=== PATIENT | female | born 1940 | race Caucasian/White ===

== ENCOUNTER 2023-09-06 16:15 | Outpatient (RCR) | payer OTHER, SELFPAY | END 2023-10-05 12:54 | disposition home or self-care (01) | LOC: PURB 16:15 | PROVIDERS: ATTENDING PHYSICIAN Internal Medicine Critical Care Medicine; FAMILY PHYSICIAN Internal Medicine | DX: J44.9 Chronic obstructive pulmonary disease, unspecified (principal) | CPT/HCPCS: 94625 ==

== ENCOUNTER 2023-10-06 16:15 | Outpatient (RCR) | payer OTHER, SELFPAY | END 2023-10-12 10:21 | disposition home or self-care (01) | LOC: PURB 16:15 | PROVIDERS: ATTENDING PHYSICIAN Internal Medicine Critical Care Medicine; FAMILY PHYSICIAN Internal Medicine | DX: J44.9 Chronic obstructive pulmonary disease, unspecified (principal) | CPT/HCPCS: 94625 ==

== ENCOUNTER 2023-10-13 12:10 | Outpatient (RCR) | payer SELFPAY | END 2023-10-13 23:59 | disposition home or self-care (01) | LOC: PURBM 12:10 | PROVIDERS: ATTENDING PHYSICIAN Internal Medicine Critical Care Medicine | DX: J44.9 Chronic obstructive pulmonary disease, unspecified (principal) ==

== ENCOUNTER 2024-01-23 15:00 | Emergency (ER) | payer OTHER, SELFPAY ==
[2024-01-23 15:08] VITALS: BP 124/89
[2024-01-23 15:29] LABS: % Basophils 0.3 % (0-2); % Eosinophils 1.7 % (0-6); % Immature Granulocytes 0.3 % (0-0.5); % Lymphocytes 10.7 % (20.5-51.1); % Monocytes 9.3 % (1.7-9.3); % Neutrophils 77.7 % (42.2-75.2); Absolute Eosinophils 0.2 10^3/uL (0-0.7); Absolute Lymphocytes 1.2 10^3/uL (1.2-3.4); Absolute Monocytes 1.1 10^3/uL (0.1-0.6); Absolute Neutrophils 8.9 10^3/uL (1.4-6.5); Hematocrit 40.3 % (37.0-47.0); Hemoglobin 13.2 g/dL (12.0-16.0); Mean Corp Hgb Conc. 32.8 g/dL (33.0-37.0); Mean Corpuscular Hgb 31.3 pg (27.0-31.0); Mean Corpuscular Volume 95.5 fL (81.0-99.0); Mean Platelet Volume 10.2 fL (7.4-10.4); Nucleated Red Blood Cells % 0 %; Platelet Count 195 10^3/uL (130-400); Red Blood Cell Count 4.22 10^6/uL (4.20-5.40); Red Cell Dist. Width 14.3 % (11.5-14.5); White Blood Cell Count 11.4 10^3/uL (4.8-10.8)
[2024-01-23 15:44] LABS: ALT (SGPT) 28 U/L (0-35); AST (SGOT) 38 U/L (14-36); Albumin 4.1 g/dl (3.5-5.0); Alkaline Phosphatase 71 U/L (38-126); Blood Urea Nitrogen 25 mg/dl (7-17); Calcium 9.3 mg/dl (8.4-10.2); Carbon Dioxide 29 mmol/L (22-30); Chloride 104 mmol/L (98-107); Glucose 85 mg/dl (70-99); Potassium 4.1 mmol/L (3.5-5.1); Sodium 140 mmol/L (135-145); Total Bilirubin 0.8 mg/dl (0.2-1.3); Total Protein 7.5 g/dl (6.3-8.2); eGFR > 60.00
[2024-01-23 17:41] VITALS: BP 130/76; BMI 23.4
--- NOTE | 2024-01-23 18:07 | ED.GENMED ---
History of Present Illness
General
Chief Complaint: Dizziness
Time Seen by Provider: 01/23/24 18:07
Travel History
Have you had any contact with someone who has COVID-19?: No
Do you have any symptoms of coronavirus? Fever > 100 degrees, chills, cough, shortness of breath, sore throat, loss of taste or smell, muscle aches, or headache?: No
History of Present Illness
History of Present Illness:
HPI: Patient presents with lightheadedness/dizziness. This was self-limited but last did longer than it typically has lasted in the past. She had another episode yesterday. She thinks that her blood pressure machine was broken yesterday as she
was giving of blood pressure reading of 56 systolic. She is no longer on blood pressure medication. She denies any other symptoms including any chest pain or shortness of breath.
EXAM:
GENERAL: Well appearing in no distress
HEENT: Very hoarse voice likely related to known vocal cord mass
CARDIOVASCULAR: No murmurs, normal heart rate, regular rhythm, No chest wall tenderness
PULMONARY: No respiratory distress, breath sounds are clear and equal
ABDOMEN: Soft with no peritoneal signs, no tenderness
NEUROLOGIC: Excellent strength all extremities, no coordination deficits, normal finger-nose testing
PSYCHIATRIC: Appropriate mental status, normal insight and judgement
EXTREMITIES: Nontender, no edema, moves all extremities equally
SKIN: Appears slightly
TIME OF INITIAL ENCOUNTER: 6:20 PM
NUMBER AND COMPLEXITY OF PROBLEMS ADDRESSED AT THE ENCOUNTER
� Chronic conditions affecting care: Asthma, COPD, former smoker on oxygen, A-fib, CAD, high blood pressure, bladder cancer, vocal cord cancer
� Acute Exacerbation and/or Progression of Chronic Illness: This is an acute but recurring problem
� Differential Diagnosis includes: Dehydration unlikely as patient states she feels well-hydrated, anemia has been ruled out, dysrhythmia�she is being paced on monitor
AMOUNT AND/OR COMPLEXITY OF DATA TO BE REVIEWED AND ANALYZED
� I performed an independent evaluation of and my interpretation is:
EKG: AV paced rate of 71
CT:
X-rays:
Laboratory Studies: Minimal leukocytosis noted, normal hemoglobin, BUN 25 creatinine 0.7, normal electrolytes
Other:
� Review of other/old records: The patient was admitted with COPD exacerbation/bronchitis in 2022
� Clinical information was obtained by an independent historian: I spoke to the at bedside
� Prescriptions/Medications Considered but not given: Offered and considered IV fluids however the patient declines stating that she feels well-hydrated
� Further testing considered but not performed:
RISK OF COMPLICATIONS AND/OR MORBIDITY OR MORTALITY OF PATIENT MANAGEMENT
� Social determinants of health affecting care: Lives at home
� Discussion with other providers:
� Escalation of care including admission/observation vs risk of discharge considered: On reassessment, the is very pleased with how the patient looks currently. The patient has not had any further episodes throughout her
stay in the ED. Basic workup is unremarkable. She is eager to go home.
Past History
Past History
ED Past Medical History: Other (bladder cancer), Other (AFIB) and Other (PAF status post pacemaker coronary disease status post stent peripheral artery disease status post femoral stent, COPD, depression)
ED Past Surgical History: Gynecological (Hysterectomy)
Patient has exhibited threatening behavior?: No
PSI?: No
Social History
Tobacco: Former smoker
Alcohol: Occasional
Drug: None
Family History
Family History: CAD
Phy Exam
Physical Exam
Physical Exam:
See HPI
Course
Orders/Labs/Results
Orders:
Orders
01/23/24 15:11
EKG [Electrocardiogram (*1)] Urgent
Reason for Study: Vertigo / Dizzy
01/23/24 15:12
EKG- Treatment ONCE
01/23/24 15:19
CBC/With Diff [Complete Blood Count/With Diff] Urgent
Comprehensive Metabolic Panel Urgent
Abnormal Lab Results
01/23/24
15:19
WBC 11.4 H 10^3/uL
(4.8-10.8)
MCH 31.3 H pg
(27.0-31.0)
MCHC 32.8 L g/dL
(33.0-37.0)
Absolute Neuts (auto) 8.9 H 10^3/uL
(1.4-6.5)
Absolute Monos (auto) 1.1 H 10^3/uL
(0.1-0.6)
Neutrophils % 77.7 H %
(42.2-75.2)
Lymphocytes % 10.7 L %
(20.5-51.1)
BUN 25 H mg/dl
(7-17)
AST 38 H U/L
(14-36)
01/23/24 15:19
01/23/24 15:19
Vital Signs
Initial and Last Documented VS:
Initial Vital Signs
Temp Pulse Resp BP Pulse Ox
97.6 F 71 18 124/89 96
01/23/24 15:08 01/23/24 15:08 01/23/24 15:08 01/23/24 15:08 01/23/24 15:08
Last Documented Vital Signs
Temp Pulse Resp BP Pulse Ox
97.6 F 88 26 130/76 95
01/23/24 15:08 01/23/24 17:41 01/23/24 17:41 01/23/24 17:41 01/23/24 17:41
*Critical Care Note
Total Time (30-74mins, 75-104mins- exclusive of procedures): Not Applicable
ED Attending Note
-
Portions of this chart may have been created with voice recognition software.� Occasional wrong word or��sound alike� substitutions may have occurred due to the inherent limitations of voice recognition software.
Discharge Plan
Departure
Patient Disposition: Home (Routine Discharge)
Date of Disposition: 01/23/24
Time of Disposition: 18:46
Patient with high blood pressure during this ER visit?: Yes
Discharge Problem:
Dizziness
Instructions: Dizziness
Prescriptions:
No Action
cholecalciferol (vitamin D3) [Vitamin D3] 400 UNITS tablet
800 units PO DAILY
sotalol 120 MG tablet
120 mg PO BID
acetaminophen [Tylenol Extra Strength] 500 MG tablet
1,000 mg PO Q6HPRN PRN (Reason: mild pain)
Refresh Classic (PF) 10 DROPS dropperette
1 drops BOTH EYES QIDPRN PRN (Reason: dry eyes)
Xarelto 20 MG tablet
20 mg PO QPM Qty: 30 11RF
atorvastatin 80 mg Tablet
80 mg PO DAILY
alendronate [Fosamax] 70 mg Tablet
70 mg PO COLON
citalopram 20 mg Tablet
30 mg PO HS
potassium chloride 20 mEq Tablet,Er Particles/Crystals
20 meq PO DAILY
furosemide 80 mg Tablet
80 mg PO DAILY
Trelegy Ellipta 100-62.5-25 mcg Blister With Device
1 inh INHALATION R DAILY
Metamucil
1 tbsp PO DAILY
Vitamin C
1 tab PO DAILY
calcium
1 tab PO DAILY
Systane (propylene glycol) 0.4-0.3 % Drops
1 drp OPHTHALMIC (EYE) DAILY PRN (Reason: dry eye)
losartan 50 mg tablet
25 mg PO DAILY
guaifenesin 600 mg Tablet Extended Release 12hr
600 mg PO Q12 Qty: 30 0RF
prednisone 10 mg tablets,dose pack
10 mg PO DIRECTED Qty: 21 0RF
albuterol sulfate 90 mcg/actuation HFA aerosol inhaler
2 puff inhalation Q6H PRN (Reason: shortness of breath or wheezing) Qty: 8.5 0RF
Referrals:
Vin Carmen Jr., DO [Family Provider] -
Activity Restrictions/Additional Instructions:
The cause of your symptoms is unclear. Your white count is minimally elevated 11.4, your hemoglobin level is normal, chemistry levels are okay, EKG shows pacing rhythm with pacemaker working appropriately. Return here if worse
Interventions
Interventions:
*Risk Screen - Suicide Last Done: 01/23/24 15:08
*General Assessment Last Done: 01/23/24 15:08
*Neglect/Abuse Screening Last Done: 01/23/24 15:08
ED- Fall Risk Assessment Last Done: 01/23/24 17:41
*ED COVID-19 Vaccine History Last Done: 01/23/24 15:08
ED- Neurological Assessment Last Done: 01/23/24 17:41
ED- Cardiac Assessment Last Done: 01/23/24 17:41
Discharge Date and Time
Print Language: TAJIK
[2024-01-23 19:12] VITALS: BP 133/61
== END 2024-01-23 19:12 | disposition home or self-care (01) ==
LOC: EMR 15:00
PROVIDERS: Emergency Medicine; EMERGENCY PHYSICIAN Emergency Medicine; FAMILY PHYSICIAN Family Medicine
DX: R42 Dizziness and giddiness (principal); R03.0 Elevated blood-pressure reading, without diagnosis of hypertension; J44.9 Chronic obstructive pulmonary disease, unspecified; C32.0 Malignant neoplasm of glottis; I73.9 Peripheral vascular disease, unspecified; F32.A Depression, unspecified; I48.0 Paroxysmal atrial fibrillation; Z95.0 Presence of cardiac pacemaker; Z85.51 Personal history of malignant neoplasm of bladder; Z87.891 Personal history of nicotine dependence; Z88.0 Allergy status to penicillin
CPT/HCPCS: 99283; 80053; 85025; 93005

== ENCOUNTER 2024-02-06 06:11 | Day surgery (SDC) | payer OTHER, SELFPAY ==
[2024-02-01 09:40] VITALS: BMI 23.6
[2024-02-01 10:40] LABS: Blood Urea Nitrogen 23 mg/dl (7-17); Estimated Creatinine Clearance 55 ml/min; Glucose 91 mg/dl (70-99)
[2024-02-01 10:44] LABS: HCG, Serum Qualitative Screen Negative
[2024-02-06 06:45] VITALS: BP 144/81
[2024-02-06 07:05] VITALS: BMI 23.6
--- NOTE | 2024-02-06 07:39 | SUR.OPER ---
CASE CANCELLED PRIOR TO PATIENT ENTERING OR SUITE
== END 2024-02-06 08:45 | disposition home or self-care (01) ==
LOC: SDS 06:11
PROVIDERS: ATTENDING PHYSICIAN Otolaryngology; FAMILY PHYSICIAN Family Medicine; OTHER PHYSICIAN Internal Medicine Cardiovascular Disease
DX: J38.7 Other diseases of larynx (principal); Z53.8 Procedure and treatment not carried out for other reasons
CPT/HCPCS: 31535; 36415; 82565; 82947; 84520; 84703

== ENCOUNTER → 2024-06-22 10:15 | Outpatient (REF) | payer OTHER, SELFPAY | LOC: RAD 10:15 | PROVIDERS: ATTENDING PHYSICIAN Internal Medicine Cardiovascular Disease; FAMILY PHYSICIAN Family Medicine | DX: I50.32 Chronic diastolic (congestive) heart failure (principal); R06.02 Shortness of breath | CPT/HCPCS: 71046 ==

== ENCOUNTER → 2024-06-26 10:28 | Outpatient (REF) | payer OTHER, SELFPAY ==
[2024-06-26 11:38] LABS: % Basophils 0.3 % (0-2); % Eosinophils 1.7 % (0-6); % Immature Granulocytes 0.3 % (0-0.5); % Lymphocytes 22.3 % (20.5-51.1); % Monocytes 12.1 % (1.7-9.3); % Neutrophils 63.3 % (42.2-75.2); Absolute Eosinophils 0.1 10^3/uL (0-0.7); Absolute Lymphocytes 1.4 10^3/uL (1.2-3.4); Absolute Monocytes 0.8 10^3/uL (0.1-0.6); Absolute Neutrophils 4.1 10^3/uL (1.4-6.5); Hematocrit 38.4 % (37.0-47.0); Hemoglobin 12.4 g/dL (12.0-16.0); Mean Corp Hgb Conc. 32.3 g/dL (33.0-37.0); Mean Corpuscular Volume 99.2 fL (81.0-99.0); Mean Platelet Volume 10.8 fL (7.4-10.4); Nucleated Red Blood Cells % 0 %; Platelet Count 204 10^3/uL (130-400); Red Blood Cell Count 3.87 10^6/uL (4.20-5.40); Red Cell Dist. Width 13.8 % (11.5-14.5); White Blood Cell Count 6.4 10^3/uL (4.8-10.8)
[2024-06-26 11:49] LABS: ALT (SGPT) 24 U/L (0-35); AST (SGOT) 32 U/L (14-36); Albumin 3.8 g/dl (3.5-5.0); Alkaline Phosphatase 46 U/L (38-126); Blood Urea Nitrogen 21 mg/dl (7-17); Calcium 9.1 mg/dl (8.4-10.2); Carbon Dioxide 32 mmol/L (22-30); Chloride 105 mmol/L (98-107); Glucose 89 mg/dl (70-99); HDL Cholesterol 51 mg/dl; LDL Cholesterol, Calculated 74 mg/dl; Potassium 4.3 mmol/L (3.5-5.1); Sodium 146 mmol/L (135-145); Total Bilirubin 0.4 mg/dl (0.2-1.3); Total Cholesterol 137 mg/dl (50-199); Total Protein 6.6 g/dl (6.3-8.2); Triglyceride 64 mg/dl (10-149); Very Low Density Lipoprotein 12 mg/dl (0-30); eGFR > 60.00
[2024-06-26 11:57] LABS: NT-proBNP 1410 pg/ml
[2024-06-26 12:19] LABS: Glycohemoglobin (HgbA1c) 5.5 % (4.0-5.6); TSH Reflex To Free T4 3.05 uIU/ml (0.47-4.68)
[2024-06-26 12:23] LABS: Ferritin 41.5 ng/ml (11.1-264.0)
== END ==
LOC: OLABPV 10:28
PROVIDERS: ATTENDING PHYSICIAN Internal Medicine Cardiovascular Disease
DX: I50.32 Chronic diastolic (congestive) heart failure (principal); I10 Essential (primary) hypertension; E78.00 Pure hypercholesterolemia, unspecified; R06.02 Shortness of breath
CPT/HCPCS: 36415; 80053; 80061; 82728; 83036; 83880; 84443; 85025

== ENCOUNTER → 2024-07-04 16:06 | Outpatient (REF) | payer OTHER, SELFPAY | LOC: HWRCS 16:06 | PROVIDERS: ATTENDING PHYSICIAN Nurse Practitioner; FAMILY PHYSICIAN Family Medicine | DX: R06.09 Other forms of dyspnea (principal); I50.32 Chronic diastolic (congestive) heart failure | CPT/HCPCS: 93306 ==

== ENCOUNTER 2024-07-13 11:37 | Inpatient (IN) | payer OTHER, SELFPAY ==
[2024-07-13] VITALS (15 sets, daily range): BP systolic 115–190; BP diastolic 64–116; PULSE 84; O2SAT 90; BMI 24.9; BMI 24.5
[2024-07-13 08:40] LABS: Glucose - Point of Care 131 mg/dl (70-99)
[2024-07-13] MEDS: LASIX 40 MG IV ×2 (11:32→15:05)
--- NOTE | 2024-07-13 11:38 | ITS.CL.CATH ---
Fre[employer] - Catheterization
Cardiac Catheterization
Procedure Report:
RIGHT HEART CATHETERIZATION
Date of Procedure: July 13, 2024
Referring: Dr. Srinivas Encinas
INDICATION: Progressive shortness of breath, oxygen dependent COPD
Hemodynamics (mmHg):
RA (m) : 16
RV (s/d,m) : 71/13, 17
PA (s/d, m) : 72/34, 50
PCWP (m) : 31
Cardiac Output : 3.4 L/min and Cardiac Index : 2.0 L/min/m-2
Systemic vascular resistance: 34.4 Wood units or 2753 [id number]-ma(-5)
Pulmonary vascular resistance: 5.9 Wood units or 470.6 guogf-cyx-ww(-5)
RADIATION SUMMARY: Fluoro Time (min): 1.9, Dose (mGy): 9.1, DAP (Gy.cm2) : 1.1
CONCLUSION:
1. Elevated right and left ventricular filling pressures
2. Probable WHO Class 5. Mean PAP 50, PCWP 31, PVR 5.9 Wood Units with underlying O2 dependent COPD and probable diastolic dysfx
RECOMMENDATION:
1. I discussed with Dr. Encinas. Ms Downing is highly symptomatic and he did not feel she would do well with symptoms as an outpatient. He preferred hospitalization for IV diuresis
Copy to: Dr. Srinivas Encinas
--- NOTE | 2024-07-13 13:19 | HPS.HSE ---
Addendum entered and electronically signed by Joey Bartlett MD 07/14/24 09:44:
84, female history of atrial fibrillation sick sinus syndrome s/p PPM, CAD, bladder and possible cord CA, HFpEF, COPD on chronic home O2, PAD D previous tobacco use presents for elective right heart catheterization to assess pulmonary pressures.
Determined due to high wedge pressure likely component of current HFpEF therefore admit for IV diuretics. Asymptomatic at the time of my evaluation along with atrial paced rhythm.
Imaging
CXR
IMPRESSION:
Subtle increased reticular markings scattered throughout both lungs, which has slightly increased comparing back to 2020 radiograph. Findings are most suggestive of interstitial fibrosis.
2d echo from 07/04/2024
CONCLUSIONS
Normal left ventricular size and systolic function. Mild concentric left
ventricular hypertrophy. No regional wall motion abnormalities are seen. LV
ejection fraction is 60-65% by volumetric assessment. Stage II diastolic
dysfunction suggestive of abnormal relaxation and increased filling pressures.
Normal right ventricular size and function. Pacer wire seen in right ventricle.
Indexed LA volume is mildly abnormal (35-41 mL/m2).
Mild mitral regurgitation.
Mild to moderate tricuspid regurgitation. Estimated pulmonary artery pressure
of 41 mmHg assuming a right atrial pressure of 3 mmHg.
Compared to previous echo 12/07/2022, the tricuspid regurgitation has increased
to mild to moderate and the PA pressures increased from 28 to 41 mmHg.
Procedure
RHC 07/13/2024
CONCLUSION:
1. Elevated right and left ventricular filling pressures
2. Probable WHO Class 5. Mean PAP 50, PCWP 31, PVR 5.9 Wood Units with underlying O2 dependent COPD and probable diastolic dysfx
RECOMMENDATION:
1. I discussed with Dr. Encinas. Ms Downing is highly symptomatic and he did not feel she would do well with symptoms as an outpatient. He preferred hospitalization for IV diuresis
Physical Exam
NAD, resting comfortably in bed, head tremor
3l NC
Scleral anicteric
Moist mucous membranes
No JVD
CTA bilateral
Normal S1-S2 no murmurs
Soft nontender nondistended bowel sounds active
No peripheral pitting edema
Moves extremities spontaneously
AAOx3
Assessment and Plan
Acute HFpEF, EF 60 to 65%, NYHA class II-IV
-IV diuretics until we see a bump in creatinine
-Continue Farxiga as this improves per day mortality per Emperor preserved trial
-Monitor daily weights
-Follow urinary output
-Follow I's and O's
-Keep K greater than 4
-Keep magnesium greater than 2
-Monitor on telemetry
-Cardiology consulted
Pulmonary hypertension who 2, 3 and 5
-Without evidence of acute COPD exacerbation no indication for steroids
-With evidence of high wedge pressure on right heart catheterization from 07/13/2024. Continue IV diuresis. See above
-Will need outpatient pulmonary hypertension clinic follow-up
Chronic hypoxemic respiratory failure
-Likely related to chronic COPD currently not in exacerbation and pulmonary hypertension
-On 3 L which is baseline
-Maintain for now
COPD
-Continue LAMA ICS/LABA
-No indication for steroids
-Goal SpO2 88 to 92%
P A-fib and sick sinus syndrome s/p pacemaker
-A paced rhythm
-Continue Xarelto
-Continue sotalol
Original Note:
Family Physician
-
Family Physician: Vin Carmen Jr.
Chief Complaint
-
Dyspnea
History of Present Illness
Asia Downing, age 84, underwent an elective right heart catheterization on 07-13-24. Her medical history is significant for chronic heart failure with preserved ejection fraction and refractory chronic obstructive pulmonary disease. She has been
feeling increasingly dyspneic with exertion and ambulation over the past several weeks. Daily dry weights have been stable and she has not noted increased abdominal distention (where she usually accumulates fluids). The catheterization showed
elevated pulmonary artery pressure. She was dyspneic after the procedure and recommended to be admitted for intravenous diuresis. Of note, the patient was at 66.6 kg (147 lbs) the day before cath at home.
Medical History
Past Medical History
Past Medical History: Reports Arrhythmia (atrial fibrillation), CAD, Cancer (bladder; vocal cord), CHF (cHFpEF), COPD and Other (PAD; tobacco use disorder)
Past Surgical History: Reports Other (femoral and coronary stents)
Social History
Tobacco: Former Smoker
Alcohol: Daily (1 drink of scotch every night)
Drug: None
Personal:
Family History
Family History: Not pertinent
Allergies / Home Medications
Allergy/Medication List:
Allergies
Allergy/AdvReac Type Severity Reaction Status Date / Time
Penicillins Allergy Itching Verified 07/13/24 08:35
Home Medications
cholecalciferol (vitamin D3) 10 mcg (400 unit) tablet (Vitamin D3) 800 units PO DAILY Supplement 10/26/16
acetaminophen 500 mg tablet (Tylenol Extra Strength) 1,000 mg PO Q6HPRN PRN mild pain 10/30/20
polyvinyl alcohol-povidone (PF) 1.4 %-0.6 % eye drops in a dropperette (Refresh Classic (PF)) 1 drops BOTH EYES QIDPRN PRN dry eyes 10/30/20
rivaroxaban 20 mg tablet (Xarelto) 20 mg PO QPM Arrhythmia #30 tabs 10/30/20
sotalol 120 mg tablet 120 mg PO BID Arrhythmia 10/30/20
Metamucil 1 tbsp PO DAILY Constipation 03/25/23
Vitamin C 1 tab PO DAILY Supplement 03/25/23
alendronate 70 mg tablet (Fosamax) 70 mg PO WEEKLY osteoporosis 03/25/23
atorvastatin 80 mg tablet 80 mg PO DAILY High Cholesterol 03/25/23
calcium 1 tab PO DAILY Supplement 03/25/23
citalopram 20 mg tablet 30 mg PO HS Depression 03/25/23
fluticasone fur. 100 mcg-umeclid 62.5 mcg-vilant 25 mcg inhalat.powder (Trelegy Ellipta) 1 inh inhalation R DAILY Lung/Breathing Issues 03/25/23
peg 400-propylene glycol 0.4 %-0.3 % eye drops (Systane (propylene glycol)) 1 drp ophthalmic (eye) DAILY PRN dry eye 04/06/23
empagliflozin 10 mg tablet (Jardiance) 10 mg PO DAILY 07/13/24
furosemide 40 mg tablet (Lasix) 40 mg PO BID 07/13/24
guaifenesin 600 mg tablet, extended release 12 hr (Mucinex) 600 mg PO BID 07/13/24
potassium chloride 20 mEq tablet,extended release(part/cryst) 20 meq PO DAILY 07/13/24
Review of Systems
-
History Source: Patient
Constitutional: Reports No Symptoms
EENT: Reports No Symptoms
Respiratory: Reports Trouble Breathing (with ambulation/exertion)
Cardiac: Reports No Symptoms
Abdomen/GI: Reports No Symptoms
: Reports No Symptoms
Musculoskeletal: Reports No Symptoms
Skin: Reports No Symptoms
Neurological: Reports No Symptoms
Endocrine: Reports No Symptoms
Hematologic/Lymphatic: Reports No Symptoms
Psych: Reports No Symptoms
Physical Exam
Vital Signs
Vital Signs
Pulse Resp BP Pulse Ox
78 19 190/95 91
07/13/24 12:30 07/13/24 08:30 07/13/24 12:27 07/13/24 12:30
Physical Exam
General: No Apparent Distress and Comfortable
HEENT: NormoCephalic, Anicteric, Moist mucous membranes, Atraumatic, No Ptosis and Oxygen (via NC 3L)
Respiratory: Crackles (mild; bilateral bases) and Non Labored Respirations
Cardiac: S1/S2 and Regular Rhythm
Breast: Deferred by me
GI: Soft, Non Tender and Distended
Rectal: Deferred by Provider
Genito-urinary: No costovertebral tender
Musculoskeletal: No Clubbing, No Cyanosis and No Edema
Skin: Warm, Dry and IV/Catheter Site
Neuro: Awake, Alert, Oriented and No Motor Deficits
Hematologic/Lymphatic: No Lymphadenopathy
Psych: Calm and Intact Judgment/Insight
Impression/Plan
-
Impression and plan
Acute on chronic heart failure with preserved ejection fraction
- Right heart catheterization with elevated pulmonary pressures on 07-13-24.
- Admitting for intravenous diuresis.
- IV furosemide 40 mg twice a day.
- Monitor daily weights, I&Os and labs.
- Sodium and fluid restrictions.
- Oxygen supplementation as needed.
- Continue empagliflozin.
Chronic hypoxic respiratory failure
Refractory chronic obstructive pulmonary disease
- On 3L at home continuously; continue.
- Continue jadqssqkqhw-snzkkzxuiebc-blzkvgajbr and guaifenesin.
Pulmonary hypertension
- Multifactorial in setting of volume overload and underlying severe COPD.
- IV diuresis.
Paroxysmal atrial fibrillation
- Continue sotalol and rivaroxaban.
Atherosclerotic cardiovascular disease
- History of femoral and coronary stents.
- Continue atorvastatin.
Sick sinus syndrome status post pacemaker
- Stable.
- Monitor on telemetry.
Essential hypertension
- Losartan recently discontinued.
- Monitor vitals.
Osteoporosis
- On alendronate, calcium and vitamin D.
Persistent depressive disorder
- Continue citalopram.
Chronic constipation
- Continue Metamucil.
Ocular dryness
- Continue eye drops.
History of transitional cell carcinoma of bladder
History of vocal cord cancer
History of tobacco use disorder
- Cancers in remission; quit smoking 27 years ago.
Daily alcohol use
- 1 glass of scotch per day.
- Recommended to cut back/quit.
Thromboprophylaxis
- Rivaroxaban.
Code status
- Full.
- Power of bellman: Edwin yung.
--- NOTE | 2024-07-13 14:00 | PTCARENOTE ---
Patient received from cardiac laborer concrete paving. Patient placed on tele monitor - Apaced with PVCs/BBB. Vital signs stable. Cath site with dressing CDI. Denies complaints at this time. Patient on 3L of oxygen at baseline. Denies complaints at this time.
[2024-07-13] MEDS: METAMUCIL, KONSYL 1 PACKET PO (15:06)
[2024-07-13] MEDS: TYLENOL 650 MG PO (15:35)
[2024-07-13] MEDS: LIPITOR 80 MG PO (17:10)
[2024-07-13] MEDS: XARELTO 20 MG PO (18:04)
[2024-07-13] MEDS: CELEXA 20 MG PO (21:03)
[2024-07-13] MEDS: CELEXA 10 MG PO (21:04)
[2024-07-13] MEDS: MUCINEX 600 MG PO (21:04)
[2024-07-13] MEDS: BETAPACE 120 MG PO (21:04)
[2024-07-14] VITALS (7 sets, daily range): BP systolic 134–170; BP diastolic 67–87; PULSE 79; O2SAT 90–95; BMI 24.5
[2024-07-14 06:49] LABS: Hematocrit 39.1 % (37.0-47.0); Hemoglobin 12.7 g/dL (12.0-16.0); Mean Corp Hgb Conc. 32.5 g/dL (33.0-37.0); Mean Corpuscular Hgb 32.5 pg (27.0-31.0); Mean Platelet Volume 10.6 fL (7.4-10.4); Platelet Count 169 10^3/uL (130-400); Red Blood Cell Count 3.91 10^6/uL (4.20-5.40); Red Cell Dist. Width 13.7 % (11.5-14.5); White Blood Cell Count 9.2 10^3/uL (4.8-10.8)
[2024-07-14 07:17] LABS: ALT (SGPT) 25 U/L (0-35); AST (SGOT) 31 U/L (14-36); Albumin 3.9 g/dl (3.5-5.0); Alkaline Phosphatase 44 U/L (38-126); Blood Urea Nitrogen 29 mg/dl (7-17); Calcium 8.6 mg/dl (8.4-10.2); Carbon Dioxide 29 mmol/L (22-30); Chloride 104 mmol/L (98-107); Estimated Creatinine Clearance 61 ml/min; Glucose 119 mg/dl (70-99); Sodium 143 mmol/L (135-145); Total Bilirubin 0.5 mg/dl (0.2-1.3); Total Protein 6.9 g/dl (6.3-8.2); eGFR > 60.00
[2024-07-14 07:25] LABS: NT-proBNP 2860 pg/ml
[2024-07-14 07:46] LABS: TSH Reflex To Free T4 1.33 uIU/ml (0.47-4.68)
[2024-07-14] MEDS: SPIRIVA RESPIMAT 2.5 MCG 2 PUFF INH (08:05)
[2024-07-14] MEDS: SYMBICORT 160/4.5 MCG INHALER 2 PUFF INH ×2 (08:05→17:47)
[2024-07-14] MEDS: BETAPACE 120 MG PO ×2 (08:36→21:46)
[2024-07-14] MEDS: MUCINEX 600 MG PO ×2 (08:36→21:47)
[2024-07-14] MEDS: FARXIGA 10 MG PO (08:36)
[2024-07-14] MEDS: LASIX 40 MG IV (08:36)
[2024-07-14] MEDS: KCL 20 MEQ PO (08:36)
[2024-07-14] MEDS: METAMUCIL, KONSYL 1 PACKET PO (08:37)
--- NOTE | 2024-07-14 09:29 | W.PN.HOSP.TC ---
Today's Communication/Plan
-
Cards consult
IV diuretics
Monitor on tele
Assessment / Plan
Assessment / Plan
Imaging
CXR
IMPRESSION:
Subtle increased reticular markings scattered throughout both lungs, which has slightly increased comparing back to 2020 radiograph. Findings are most suggestive of interstitial fibrosis.
2d echo from 07/04/2024
CONCLUSIONS
Normal left ventricular size and systolic function. Mild concentric left
ventricular hypertrophy. No regional wall motion abnormalities are seen. LV
ejection fraction is 60-65% by volumetric assessment. Stage II diastolic
dysfunction suggestive of abnormal relaxation and increased filling pressures.
Normal right ventricular size and function. Pacer wire seen in right ventricle.
Indexed LA volume is mildly abnormal (35-41 mL/m2).
Mild mitral regurgitation.
Mild to moderate tricuspid regurgitation. Estimated pulmonary artery pressure
of 41 mmHg assuming a right atrial pressure of 3 mmHg.
Compared to previous echo 12/07/2022, the tricuspid regurgitation has increased
to mild to moderate and the PA pressures increased from 28 to 41 mmHg.
Procedure
RHC 07/13/2024
CONCLUSION:
1. Elevated right and left ventricular filling pressures
2. Probable WHO Class 5. Mean PAP 50, PCWP 31, PVR 5.9 Wood Units with underlying O2 dependent COPD and probable diastolic dysfx
RECOMMENDATION:
1. I discussed with Dr. Encinas. Ms Downing is highly symptomatic and he did not feel she would do well with symptoms as an outpatient. He preferred hospitalization for IV diuresis
Physical Exam
NAD, resting comfortably in bed, head tremor
3l NC
Scleral anicteric
Moist mucous membranes
No JVD
CTA bilateral
Normal S1-S2 no murmurs
Soft nontender nondistended bowel sounds active
No peripheral pitting edema
Moves extremities spontaneously
AAOx3
Assessment and Plan
Acute HFpEF, EF 60 to 65%, NYHA class II-IV
-IV diuretics until we see a bump in creatinine
-Continue Farxiga as this improves per day mortality per Emperor preserved trial
-Monitor daily weights
-Follow urinary output
-Follow I's and O's
-Keep K greater than 4
-Keep magnesium greater than 2
-Monitor on telemetry
-Cardiology consulted
Pulmonary hypertension who 2, 3 and 5
-Without evidence of acute COPD exacerbation no indication for steroids
-With evidence of high wedge pressure on right heart catheterization from 07/13/2024. Continue IV diuresis. See above
-Will need outpatient pulmonary hypertension clinic follow-up
Chronic hypoxemic respiratory failure
-Likely related to chronic COPD currently not in exacerbation and pulmonary hypertension
-On 3 L which is baseline
-Maintain for now
COPD
-Continue LAMA ICS/LABA
-No indication for steroids
-Goal SpO2 88 to 92%
P A-fib and sick sinus syndrome s/p pacemaker
-A paced rhythm
-Continue Xarelto
-Continue sotalol
Anticipated Discharge: 24 - 48 hours
Subjective/Interval History
-
Date of Service: July 14, 2024
Seen and examined. No new complaints. No acute overnight events.
States that she is feeling better.
At baseline uses 3 L home oxygen
States that she does not feel volume overloaded
Asking when she would be going home
Objective Data
-
Labs:
Laboratory Results
07/14/24
06:27
WBC 9.2
Hgb 12.7
Hct 39.1
Plt Count 169
Sodium 143
Potassium 4.0
Chloride 104
Carbon Dioxide 29
BUN 29 H
Creatinine 0.6
Glucose 119 H
Calcium 8.6
Total Bilirubin 0.5
AST 31
ALT 25
Alkaline Phosphatase 44
Vital Signs:
Vital Signs
Temp Pulse Resp BP Pulse Ox
98.1 F 75 16 160/85 94
07/14/24 07:25 07/14/24 08:10 07/14/24 08:10 07/14/24 07:25 07/14/24 08:25
I&O
07/13/24 07/14/24 07/15/24
06:59 06:59 06:59
Intake Total 960 / 960
Output Total 1600 / 1600
Balance -640 / -640
--- NOTE | 2024-07-14 12:05 | CM ---
CM met with pt at bedside.
Pt resides with spouse at [facility].
Prior to admission, ind with amb using cane, scooter for distances and rollator PRN. Ind with ADL's. [employer] supplies oxygen baseline is 3LNC.
Pt has no HC history. Reviewed PT eval from yesterday and recc for home PT. Pt declines stating they worked with her today and the recc has changed to no home services.
Confirmed PCP is Dr. Carmen and pharmacy is [facility]. + Prescription plan.
CM to follow and assist. Provided contact info should pt change mind re: VN. Anticipate home no needs vs VN.
--- NOTE | 2024-07-14 12:15 | W.PN.CARDCBS ---
Today's Communication / Plan
-
Intensify diuretic regimen today
Impression / Plan
-
Primary chuck wagon driver is Dr Srinivas Encinas
Patient referred for outpatient RHC which was done 07/13/24 demonstrating elevated right and left ventricular filling pressures with mean PAP 50, PCWP 31, PVR 5.9 Wood Units, cardiac Output 3.4 L/min with Cardiac Index 2.0 L/min/m2 with underlying O2
dependent COPD and probable diastolic dysfx. CXR with subtle increased reticular markings scattered throughout both lungs, which has slightly increased comparing back to 2020 radiograph. Findings are most suggestive of interstitial fibrosis
She was admitted for aggressive IV Lasix diuresis.
ECHO 07/04/2024:
Normal left ventricular size and systolic function. Mild concentric left
ventricular hypertrophy. No regional wall motion abnormalities are seen. LV
ejection fraction is 60-65% by volumetric assessment. Stage II diastolic
dysfunction suggestive of abnormal relaxation and increased filling pressures.
Normal right ventricular size and function. Pacer wire seen in right ventricle.
Indexed LA volume is mildly abnormal (35-41 mL/m2).
Mild mitral regurgitation.
Mild to moderate tricuspid regurgitation. Estimated pulmonary artery pressure
of 41 mmHg assuming a right atrial pressure of 3 mmHg.
Compared to previous echo 12/07/2022, the tricuspid regurgitation has increased
to mild to moderate and the PA pressures increased from 28 to 41 mmHg.
RHC 07/13/2024:
Elevated right and left ventricular filling pressures with mean PAP 50, PCWP 31, PVR 5.9 Wood Units, cardiac Output 3.4 L/min with Cardiac Index 2.0 L/m2
Assessment and Plan
Acute on chronic HFpEF, EF 60 to 65%, NYHA class III
Pulmonary hypertension likely mixed with component of volume overload and lung disease (COPD and possible pulm fibrosis)
Paroxysmal AF
SSS
PPM
Essential hypertension
Peripheral arterial disease
Multiple interventions on the left SFA
Right carotid artery stenting
Central retinal artery occlusion of the right eye and subsequent blindness
Benign head tremor, severe
Orthostatic hypotension.
-IV Lasix diuresis
was on 40 mg PO BID as outpatient and was started on 40 IV BID here, will increase Lasix to 80 mg IV BID
Follow renal function closely
Keep K 4-5 and Mg 2-3diuretics until we see a bump in creatinine
-Continue Farxiga
-COPD and pulmonary eval/treatment as per primary service
-Remains in sinus rhythm/atrial paced on sotalol.
Maintain current dose of sotalol, stable corrected QT interval.
Maintain Xarelto oral anticoagulation.
Total time 52 minutes
Progress Note - Certified Medication Technician
Subjective
Date of Service: July 14, 2024
She tells me she is just short of breath today as she was yesterday. No chest pain
Objective
Labs:
07/14/24 06:27
07/14/24 06:27
Labs
Hgb 12.7 g/dL (12.0-16.0) 07/14/24 06:27
Hct 39.1 % (37.0-47.0) 07/14/24 06:27
Plt Count 169 10^3/uL (130-400) 07/14/24 06:27
Sodium 143 mmol/L (135-145) 07/14/24 06:27
Potassium 4.0 mmol/L (3.5-5.1) 07/14/24 06:27
BUN 29 mg/dl (7-17) H 07/14/24 06:27
Creatinine 0.6 mg/dL (0.6-1.0) 07/14/24 06:27
Glucose 119 mg/dl (70-99) H 07/14/24 06:27
Vital Signs and I&O:
Vital Signs
Temp Pulse Resp BP Pulse Ox
98.1 F 75 16 160/85 94
07/14/24 07:25 07/14/24 08:10 07/14/24 08:10 07/14/24 07:25 07/14/24 10:38
Vital Signs
Temp Pulse Resp BP Pulse Ox
98.1 F 75 16 160/85 94
07/14/24 07:25 07/14/24 08:10 07/14/24 08:10 07/14/24 07:25 07/14/24 10:38
Intake & Output
07/12/24 07/13/24 07/14/24 07/15/24
06:59 06:59 06:59 06:59
Intake Total 960 / 960
Output Total 1600 / 1600
Balance -640 / -640
Physical Exam
Physical Exam
Elderly woman sitting in chair no distress. Head tremor.
Regular with some ectopy, normal S1 and S2, no S3 there is an S4. There is a grade 2/6 apical holosystolic murmur and no rub.
Lungs are clear to auscultation bilaterally
Extremities show trace pretibial edema bilaterally
Abdomen soft nontender nondistended with normoactive bowel sounds
Neurologic exam notable for resting tremor at the head
--- NOTE | 2024-07-14 14:20 | PTCARENOTE ---
Cadizem gtt stopped. PO cadizem administered. Will continue to monitor HR.
[2024-07-14] MEDS: LASIX 80 MG IV (16:49)
[2024-07-14] MEDS: LIPITOR 80 MG PO (16:50)
[2024-07-14] MEDS: XARELTO 20 MG PO (16:50)
[2024-07-14] MEDS: CELEXA 20 MG PO (21:46)
[2024-07-14] MEDS: CELEXA 10 MG PO (21:46)
[2024-07-14] MEDS: TYLENOL 650 MG PO (23:34)
[2024-07-15 03:00] VITALS: BP 163/88
[2024-07-15 04:07] LABS: Blood Urea Nitrogen 28 mg/dl (7-17); Calcium 8.8 mg/dl (8.4-10.2); Carbon Dioxide 31 mmol/L (22-30); Chloride 102 mmol/L (98-107); Estimated Creatinine Clearance 52 ml/min; Glucose 119 mg/dl (70-99); Magnesium 2.6 mg/dl (1.6-2.3); Potassium 3.9 mmol/L (3.5-5.1); Sodium 142 mmol/L (135-145); eGFR > 60.00
[2024-07-15 04:19] LABS: Troponin I < 0.012 ng/ml
[2024-07-15 06:00] VITALS: BMI 23.9
[2024-07-15] MEDS: SYMBICORT 160/4.5 MCG INHALER 2 PUFF INH ×2 (07:39→18:36)
[2024-07-15] MEDS: SPIRIVA RESPIMAT 2.5 MCG 2 PUFF INH (07:40)
[2024-07-15] MEDS: BETAPACE 120 MG PO ×2 (07:57→19:57)
[2024-07-15] MEDS: METAMUCIL, KONSYL 1 PACKET PO (07:57)
[2024-07-15] MEDS: FARXIGA 10 MG PO (07:57)
[2024-07-15] MEDS: MUCINEX 600 MG PO ×2 (07:58→19:57)
[2024-07-15] MEDS: KCL 20 MEQ PO (07:58)
[2024-07-15] MEDS: LASIX 80 MG IV ×2 (07:58→15:13)
[2024-07-15 08:05] VITALS: BP 130/77
--- NOTE | 2024-07-15 09:10 | W.PN.HOSP.TC ---
Today's Communication/Plan
-
IV diuresis
Follow electrolytes
Follow urinary output
Follow daily weights
Cardiology following
Assessment / Plan
Assessment / Plan
Imaging
CXR
IMPRESSION:
Subtle increased reticular markings scattered throughout both lungs, which has slightly increased comparing back to 2020 radiograph. Findings are most suggestive of interstitial fibrosis.
2d echo from 07/04/2024
CONCLUSIONS
Normal left ventricular size and systolic function. Mild concentric left
ventricular hypertrophy. No regional wall motion abnormalities are seen. LV
ejection fraction is 60-65% by volumetric assessment. Stage II diastolic
dysfunction suggestive of abnormal relaxation and increased filling pressures.
Normal right ventricular size and function. Pacer wire seen in right ventricle.
Indexed LA volume is mildly abnormal (35-41 mL/m2).
Mild mitral regurgitation.
Mild to moderate tricuspid regurgitation. Estimated pulmonary artery pressure
of 41 mmHg assuming a right atrial pressure of 3 mmHg.
Compared to previous echo 12/07/2022, the tricuspid regurgitation has increased
to mild to moderate and the PA pressures increased from 28 to 41 mmHg.
Procedure
RHC 07/13/2024
CONCLUSION:
1. Elevated right and left ventricular filling pressures
2. Probable WHO Class 5. Mean PAP 50, PCWP 31, PVR 5.9 Wood Units with underlying O2 dependent COPD and probable diastolic dysfx
RECOMMENDATION:
1. I discussed with Dr. Encinas. Ms Downing is highly symptomatic and he did not feel she would do well with symptoms as an outpatient. He preferred hospitalization for IV diuresis
Physical Exam
NAD, resting comfortably in bed, head tremor
3l NC
Scleral anicteric
Moist mucous membranes
No JVD
CTA bilateral
Normal S1-S2 no murmurs
Soft nontender nondistended bowel sounds active
No peripheral pitting edema
Moves extremities spontaneously
AAOx3
Assessment and Plan
Acute HFpEF, EF 60 to 65%, NYHA class II-IV
-IV diuretics, cardiology increased to 80 mg twice a day, continue until we see a bump in creatinine
-Continue Farxiga as this improves per day mortality per Emperor preserved trial
-Monitor daily weights
-Follow urinary output
-Follow I's and O's
-Keep K greater than 4
-Keep magnesium greater than 2
-Monitor on telemetry
-Cardiology following
Pulmonary hypertension who 2, 3 and 5
-Without evidence of acute COPD exacerbation no indication for steroids
-With evidence of high wedge pressure on right heart catheterization from 07/13/2024. Continue IV diuresis. See above
-Will need outpatient pulmonary hypertension clinic follow-up
Chronic hypoxemic respiratory failure
-Likely related to chronic COPD currently not in exacerbation and pulmonary hypertension
-On 3 L which is baseline
-Maintain for now
COPD
-Continue LAMA ICS/LABA
-No indication for steroids
-Goal SpO2 88 to 92%
P A-fib and sick sinus syndrome s/p pacemaker
-A paced rhythm
-Continue Xarelto
-Continue sotalol
Anticipated Discharge: > 48 hours
Subjective/Interval History
-
Date of Service: July 15, 2024
Seen and examined. No new complaints. No acute overnight events.
States that she is feeling better. Admits to weight loss.
Asking for when she would be discharged
Objective Data
-
Labs:
Laboratory Results
07/15/24
03:45
Sodium 142
Potassium 3.9
Chloride 102
Carbon Dioxide 31 H
BUN 28 H
Creatinine 0.7
Glucose 119 H
Calcium 8.8
Vital Signs:
Vital Signs
Temp Pulse Resp BP Pulse Ox
98.0 F 83 16 130/77 95
07/15/24 08:05 07/15/24 08:05 07/15/24 08:05 07/15/24 08:05 07/15/24 08:05
I&O
07/14/24 07/15/24 07/16/24
06:59 06:59 06:59
Intake Total 960 / 960 480 / 480
Output Total 1600 / 1600 1275 / 1275
Balance -640 / -640 -795 / -795
--- NOTE | 2024-07-15 09:27 | W.PN.CARDCBS ---
Today's Communication / Plan
-
Maintain Lasix
Consider optimization of COPD eval/treatment
Impression / Plan
-
Primary dealer card room is Dr Srinivas Encinas
Patient referred for outpatient RHC which was done 07/13/24 demonstrating elevated right and left ventricular filling pressures with mean PAP 50, PCWP 31, PVR 5.9 Wood Units, cardiac Output 3.4 L/min with Cardiac Index 2.0 L/min/m2 with underlying O2
dependent COPD and probable diastolic dysfx. CXR with subtle increased reticular markings scattered throughout both lungs, which has slightly increased comparing back to 2020 radiograph. Findings are most suggestive of interstitial fibrosis
She was admitted for aggressive IV Lasix diuresis.
ECHO 07/04/2024:
Normal left ventricular size and systolic function. Mild concentric left
ventricular hypertrophy. No regional wall motion abnormalities are seen. LV
ejection fraction is 60-65% by volumetric assessment. Stage II diastolic
dysfunction suggestive of abnormal relaxation and increased filling pressures.
Normal right ventricular size and function. Pacer wire seen in right ventricle.
Indexed LA volume is mildly abnormal (35-41 mL/m2).
Mild mitral regurgitation.
Mild to moderate tricuspid regurgitation. Estimated pulmonary artery pressure
of 41 mmHg assuming a right atrial pressure of 3 mmHg.
Compared to previous echo 12/07/2022, the tricuspid regurgitation has increased
to mild to moderate and the PA pressures increased from 28 to 41 mmHg.
RHC 07/13/2024:
Elevated right and left ventricular filling pressures with mean PAP 50, PCWP 31, PVR 5.9 Wood Units, cardiac Output 3.4 L/min with Cardiac Index 2.0 L/m2
Assessment and Plan
Acute on chronic HFpEF, EF 60 to 65%, NYHA class III
Pulmonary hypertension likely mixed with component of volume overload and lung disease (COPD and possible pulm fibrosis)
Paroxysmal AF
SSS
PPM
Essential hypertension
Peripheral arterial disease
Multiple interventions on the left SFA
Right carotid artery stenting
Central retinal artery occlusion of the right eye and subsequent blindness
Benign head tremor, severe
Orthostatic hypotension.
-IV Lasix diuresis
was on 40 mg PO BID as outpatient and was started on 40 IV BID here on admission but poor diuretic response. Lasix increased to 80 mg IV BID starting on 11 PM
Symptomatically improved, Weight is down 4 pounds and fluid balance -800 cc with creatinine that is stable.
Maintain current dose of diuretic, Lasix 80 mg IV twice daily
Keep K 4-5 and Mg 2-3
-Continue Farxiga
-COPD and pulmonary eval/treatment as per primary service
Would she benefit from re-eval of her COPD/Lung disease treament
-Remains in sinus rhythm/atrial paced on sotalol.
Maintain current dose of sotalol, stable corrected QT interval (QTc 513 ms in setting of RBBB) .
Maintain Xarelto oral anticoagulation.
Total time 50 minutes
Progress Note - Internal Combustion Engine Inspector
Subjective
Date of Service: July 15, 2024
She describes being slightly less SOB
Objective
Labs:
07/14/24 06:27
07/15/24 03:45
Labs
Hgb 12.7 g/dL (12.0-16.0) 07/14/24 06:27
Hct 39.1 % (37.0-47.0) 07/14/24 06:27
Plt Count 169 10^3/uL (130-400) 07/14/24 06:27
Sodium 142 mmol/L (135-145) 07/15/24 03:45
Potassium 3.9 mmol/L (3.5-5.1) 07/15/24 03:45
BUN 28 mg/dl (7-17) H 07/15/24 03:45
Creatinine 0.7 mg/dL (0.6-1.0) 07/15/24 03:45
Glucose 119 mg/dl (70-99) H 07/15/24 03:45
Troponins
07/15/24
03:45
Troponin I < 0.012
Vital Signs and I&O:
Vital Signs
Temp Pulse Resp BP Pulse Ox
98.0 F 83 16 130/77 95
07/15/24 08:05 07/15/24 08:05 07/15/24 08:05 07/15/24 08:05 07/15/24 08:05
Vital Signs
Temp Pulse Resp BP Pulse Ox
98.0 F 83 16 130/77 95
07/15/24 08:05 07/15/24 08:05 07/15/24 08:05 07/15/24 08:05 07/15/24 08:05
Intake & Output
07/13/24 07/14/24 07/15/24 07/16/24
06:59 06:59 06:59 06:59
Intake Total 960 / 960 480 / 480
Output Total 1600 / 1600 1275 / 1275
Balance -640 / -640 -795 / -795
Physical Exam
Physical Exam
Elderly woman sitting in bed no distress. Head tremor.
Regular with some ectopy, normal S1 and S2, no S3 there is an S4. There is a grade 2/6 apical holosystolic murmur and no rub.
Lungs are clear to auscultation bilaterally
Extremities show trace pretibial edema bilaterally
Abdomen soft nontender nondistended with normoactive bowel sounds
Neurologic exam notable for resting tremor at the head
[2024-07-15 11:47] VITALS: BP 110/62
[2024-07-15 15:35] VITALS: BP 139/64
[2024-07-15] MEDS: LIPITOR 80 MG PO (17:09)
[2024-07-15] MEDS: XARELTO 20 MG PO (17:09)
[2024-07-15 19:00] VITALS: BP 123/61
[2024-07-15] MEDS: CELEXA 20 MG PO (19:57)
[2024-07-15] MEDS: CELEXA 10 MG PO (19:57)
[2024-07-15 23:51] VITALS: BP 154/80
[2024-07-16] VITALS (7 sets, daily range): BP systolic 117–166; BP diastolic 61–91; PULSE 76; O2SAT 94; BMI 23.8
[2024-07-16] MEDS: SPIRIVA RESPIMAT 2.5 MCG 2 PUFF INH (07:39)
[2024-07-16] MEDS: SYMBICORT 160/4.5 MCG INHALER 2 PUFF INH ×2 (07:40→19:37)
[2024-07-16 08:18] LABS: Hemoglobin 14.3 g/dL (12.0-16.0); Mean Corp Hgb Conc. 31.8 g/dL (33.0-37.0); Mean Corpuscular Hgb 32.4 pg (27.0-31.0); Mean Corpuscular Volume 101.8 fL (81.0-99.0); Mean Platelet Volume 10.7 fL (7.4-10.4); Platelet Count 194 10^3/uL (130-400); Red Blood Cell Count 4.42 10^6/uL (4.20-5.40); Red Cell Dist. Width 13.7 % (11.5-14.5); White Blood Cell Count 13.5 10^3/uL (4.8-10.8)
[2024-07-16 08:29] LABS: Blood Urea Nitrogen 34 mg/dl (7-17); Calcium 9.2 mg/dl (8.4-10.2); Carbon Dioxide 34 mmol/L (22-30); Chloride 99 mmol/L (98-107); Estimated Creatinine Clearance 45 ml/min; Glucose 107 mg/dl (70-99); Potassium 4.3 mmol/L (3.5-5.1); Sodium 146 mmol/L (135-145); eGFR > 60.00
--- NOTE | 2024-07-16 09:05 | W.PN.HOSP.TC ---
Addendum entered and electronically signed by Parveen Tillman MD 07/16/24 15:45:
seen and examined by me independently in collaboration with the durable medical equipment technician Stephen.
Lab data and imaging data reviewed.
Addendum as below :
Improving weight and clinical symptoms shortness of breath.On stable home FIO2 Continue with IV diuresis per cardiology for another 24 hours and consider discharge in a.m. if stable.
No clinical evidence of COPD flare.
Original Note:
Today's Communication/Plan
-
* IV diuresis.
* Follow daily weights, I&Os and electrolytes.
* Oxygen supplementation to keep saturation 88-92%.
* PT-OT evaluation.
Assessment / Plan
Assessment / Plan
Assessment
Asia Downing, age 84, underwent an elective right heart catheterization on 07-13-24. Her medical history is significant for chronic heart failure with preserved ejection fraction and refractory chronic obstructive pulmonary disease. She has been
feeling increasingly dyspneic with exertion and ambulation over the past several weeks. Daily dry weights have been stable and she has not noted increased abdominal distention (where she usually accumulates fluids). The catheterization showed
elevated pulmonary artery pressure. She was dyspneic after the procedure and recommended to be admitted for intravenous diuresis. Of note, the patient was at 147 lbs the day before cath at home; dry weight is around 140-141 lbs.
Impression and plan
Acute on chronic heart failure with preserved ejection fraction
- Right heart catheterization with elevated pulmonary pressures on 07-13-24.
- Admitting for intravenous diuresis.
- IV furosemide 80 mg twice a day.
- Monitor daily weights, I&Os and electrolytes.
- Sodium and fluid restrictions.
- Oxygen supplementation as needed.
- Continue dapagliflozin.
- Cardiology following.
Chronic hypoxic respiratory failure
Refractory chronic obstructive pulmonary disease
- On 3L at home continuously; keep oxygen saturation between 88-92%.
- Continue uihfymkbvkr-vnbmhrbsjoej-oynojaaheu and guaifenesin.
Pulmonary hypertension
- WHO type 2 vs. 3, possibly 5?
- Likely multifactorial in setting of volume overload and underlying severe COPD.
- IV diuresis.
Paroxysmal atrial fibrillation
- Continue sotalol and rivaroxaban.
Sick sinus syndrome status post pacemaker
- Atrial-paced rhythm.
- Monitor on telemetry.
Atherosclerotic cardiovascular disease
- History of femoral and coronary stents.
- Continue atorvastatin.
Essential hypertension
- Losartan recently discontinued.
- Monitor vitals.
Osteoporosis
- On alendronate, calcium and vitamin D.
Persistent depressive disorder
- Continue citalopram.
Chronic constipation
- Continue Metamucil.
Ocular dryness
- Continue eye drops.
History of transitional cell carcinoma of bladder
History of vocal cord cancer
History of tobacco use disorder
- Cancers in remission; quit smoking 27 years ago.
Daily alcohol use
- 1 glass of scotch per day.
- Recommended to cut back/quit.
Thromboprophylaxis
- Rivaroxaban.
Code status
- Full.
- Power of contract attorney: , Edwin.
Anticipated Discharge: 24 - 48 hours
Subjective/Interval History
-
Date of Service: July 16, 2024
Objective Data
-
Labs:
Laboratory Results
07/16/24
07:36
WBC 13.5 H
Hgb 14.3
Hct 45.0
Plt Count 194
Sodium 146 H
Potassium 4.3
Chloride 99
Carbon Dioxide 34 H
BUN 34 H
Creatinine 0.8
Glucose 107 H
Calcium 9.2
Vital Signs:
Vital Signs
Temp Pulse Resp BP Pulse Ox
98.1 F 80 18 155/91 94
07/16/24 07:30 07/16/24 07:45 07/16/24 07:45 07/16/24 07:30 07/16/24 07:45
I&O
07/15/24 07/16/24 07/17/24
06:59 06:59 06:59
Intake Total 480 / 480 900 / 900
Output Total 1275 / 1275 1000 / 1000
Balance -795 / -795 -100 / -100
Review of Systems
-
History Source: Patient
Constitutional: Reports No Symptoms
EENT: Reports Decreased Vision
Respiratory: Reports No Symptoms
Cardiac: Reports No Symptoms
Abdomen/GI: Reports No Symptoms
Genitourinary: Reports No Symptoms
Musculoskeletal: Reports No Symptoms
Skin: Reports No Symptoms
Neuro: Reports No Symptoms
Endocrine: Reports No Symptoms
Hematologic / Lymphatic: Reports No Symptoms
Allergy / Immunology: Reports No Symptoms
Physical Exam
-
General: No Apparent Distress and Comfortable
HEENT: Normocephalic, Atraumatic, Moist Mucous Membranes, Anicteric, No Ptosis and Oxygen (3L via NC)
Respiratory: Crackles (mild bilateral) and Non Labored Respirations
Cardiac: Regular Rhythm and S1/S2
GI: Soft, Nontender and Distended (improved)
Genito-urinary: No Costovertebral Tender
Musculoskeletal: No Clubbing, No Cyanosis and No Edema
Skin: Warm, Dry and IV Access / Catheter Site
Neuro: Awake, Alert, Oriented and No Motor Deficits
Hematologic / Lymphatic: No Lymphadenopathy
Psych: Calm
[2024-07-16] MEDS: MUCINEX 600 MG PO ×2 (09:44→19:54)
[2024-07-16] MEDS: BETAPACE 120 MG PO ×2 (09:44→19:53)
[2024-07-16] MEDS: METAMUCIL, KONSYL 1 PACKET PO (09:44)
[2024-07-16] MEDS: FARXIGA 10 MG PO (09:44)
[2024-07-16] MEDS: KCL 20 MEQ PO (09:44)
[2024-07-16] MEDS: LASIX 80 MG IV ×2 (09:45→17:05)
--- NOTE | 2024-07-16 09:52 | W.HF.CON ---
Heart Failure
- LV Function
Left ventricular function study result: LV Ejection fraction >/= 50%
Ejection Fraction Percentage: 60-65
- ARNI
Patient already on ARNI: No
Heart Failure ARNI Not Indicated: LV Ejection Fraction >/= 40%
- ACEI/ARB
Patient already on ACEI/ARB: No
Heart Failure ACEI/ARB Not Indicated: LV Ejection Fraction > 40%
- Beta Joi
Patient already on Evidence Based Beta Joi: No
Heart Failure Evidence Based Beta Joi Not Indicated: LV Ejection Fraction > 40%
- Mineralocorticord Receptor Antagonist
Patient already on MRA: No
Heart Failure MRA Not Indicated: LV Ejection Fraction > 40%
- SGLT-2 Inhibitor
Patient already on SGLT-2 Inhibitor: Yes
- Afib Anticoagulation
Patient already on Anticoagulation for Afib: Yes
- NYHA CHF Classification
NYHA CHF Classification Level: Class III - Symptoms w/ min exertion, interferes w/ nml daily activity
- ACC/AHA Stage
ACC/AHA Stage: Stage C: Symptomatic Heart Failure
--- NOTE | 2024-07-16 10:22 | W.PN.CARDCBS ---
Addendum entered and electronically signed by Rosa Maria Smallwood DO 07/16/24 15:16:
I saw and examined the patient.
The Ice Crusher's note was reviewed and I agree with the note.
Comment: Patient seen and examined. Sitting out of bed to chair and overall feeling better. On home O2.
GEN: No distress, awake, alert and oriented x3. Tremulous
HEENT: MMM
LUNGS: No audible wheeze
CV: A paced RBBB on tele
ABD: ND +BS
EXT: No edema B/L. Right heart cath site intact
Plan:
Pulmonary hypertension admitted with acute heart failure with preserved ejection fraction
-Volume status is improving with IV diuretics
-Continue IV Lasix 80 mg twice daily another 24 hours. Hopefully transition to oral Lasix 80mg BID tomorrow
-EF preserved at 60-65% by echo last month.
-Losartan stopped due to orthostasis 01/2024
-Patient is chronically on sotalol for rhythm control rather than a cardioselective BB.
-Outpatient dose of Jardiance 10 mg daily (changed to Farxiga while inpatient due to formulary) has been continued
-COPD and pulmonary eval/treatment as per primary service. Her usual 3 L NC has been continued throughout admission. Patient follows with Dr. Garcia as an outpatient.
-Remains in sinus rhythm/atrial paced on sotalol 120 mg BID. QTc 513 ms paced rhythm on ECG from 07/15/24 reviewed by me.
-Outpatient dose of Xarelto 20 mg daily has been continued
Original Note:
Today's Communication / Plan
-
Cont Lasix 80 mg IV BID, dry weight closer to 140-141 lbs
Impression / Plan
-
PCP: Dr. Carmen
Primary toolmaker grade three: Dr Srinivas Encinas
Impression:
Admitted for acute HF after outpatient RHS 07/13/24
Acute HFpEF
EF 60 to 65%, NYHA class III
Pulmonary hypertension likely mixed with component of volume overload and lung disease (COPD and possible pulm fibrosis)
Paroxysmal AF
Chronic Xarelto OAC
SSS s/p Medtronic DC PPM
HTN
CAD s/p RCA PCI 2006
PAD s/p left SFA stent 02/2012 then restenosis and recurrent stent 06/2013 then restenosis and recurrent stent 10/26/16
s/p Right carotid artery stenting
Central retinal artery occlusion of the right eye and subsequent blindness
Benign head tremor, severe
Orthostatic hypotension.
h/o TCC of bladder
Echo 07/19/18: EF 60-65%
Echo 07/04/2024: EF 60-65%, no WMA, stage II diastolic dysfunction. Normal RV size and function, mild MR, mild to mod TR with PAP 41 mmHg
RHC 07/13/2024: Elevated right and left ventricular filling pressures with mean PAP 50, PCWP 31, PVR 5.9 Wood Units, cardiac Output 3.4 L/min with Cardiac Index 2.0 L/m2
Plan:
-Weight is down 6 lbs since admission with Lasix IV. Initially diuresed with Lasix 40 mg IV BID and then dose increased to 80 mg IV BID starting 07/14/24. Patient was taking Lasix 40 mg PO BID prior to admission.
-Dry weight closer to 140-141 lbs so will cont with IV diuresis. If weight trends down in AM and patient feels well then will plan d/c to home.
-EF preserved at 60-65% by echo last month.
-Losartan stopped due to orthostasis 01/2024
-Patient is chronically on sotalol for rhythm control rather than a cardioselective BB.
-Outpatient dose of Jardiance 10 mg daily (changed to Farxiga while inpatient due to formulary) has been continued
-COPD and pulmonary eval/treatment as per primary service. Her usual 3 L NC has been continued throughout admission. Patient follows with Dr. Garcia as an outpatient.
-Remains in sinus rhythm/atrial paced on sotalol 120 mg BID. QTc 513 ms paced rhythm on ECG from 07/15/24 reviewed by me.
-Outpatient dose of Xarelto 20 mg daily has been continued
HPI: Patient referred for outpatient RHC which was done 07/13/24 demonstrating elevated right and left ventricular filling pressures with mean PAP 50, PCWP 31, PVR 5.9 Wood Units, cardiac Output 3.4 L/min with Cardiac Index 2.0 L/min/m2 with
underlying O2 dependent COPD and probable diastolic dysfx. CXR with subtle increased reticular markings scattered throughout both lungs, which has slightly increased comparing back to 2020 radiograph. Findings are most suggestive of interstitial
fibrosis. She was admitted for aggressive IV Lasix diuresis.
Progress Note - Manager Line
Subjective
Date of Service: July 16, 2024
Less SOB
Objective
Labs:
07/16/24 07:36
07/16/24 07:36
Labs
Hgb 14.3 g/dL (12.0-16.0) 07/16/24 07:36
Hct 45.0 % (37.0-47.0) 07/16/24 07:36
Plt Count 194 10^3/uL (130-400) 07/16/24 07:36
Sodium 146 mmol/L (135-145) H 07/16/24 07:36
Potassium 4.3 mmol/L (3.5-5.1) 07/16/24 07:36
BUN 34 mg/dl (7-17) H 07/16/24 07:36
Creatinine 0.8 mg/dL (0.6-1.0) 07/16/24 07:36
Glucose 107 mg/dl (70-99) H 07/16/24 07:36
Troponins
07/15/24
03:45
Troponin I < 0.012
Vital Signs and I&O:
Vital Signs
Temp Pulse Resp BP Pulse Ox
98.1 F 80 18 155/91 94
07/16/24 07:30 07/16/24 09:44 07/16/24 07:45 07/16/24 09:44 07/16/24 07:45
Vital Signs
Temp Pulse Resp BP Pulse Ox
98.1 F 80 18 155/91 94
07/16/24 07:30 07/16/24 09:44 07/16/24 07:45 07/16/24 09:44 07/16/24 07:45
Intake & Output
07/14/24 07/15/24 07/16/24 07/17/24
06:59 06:59 06:59 06:59
Intake Total 960 / 960 480 / 480 900 / 900
Output Total 1600 / 1600 1275 / 1275 1000 / 1000
Balance -640 / -640 -795 / -795 -100 / -100
Physical Exam
Physical Exam
GEN: No distress, awake, alert and oriented x3. Tremulous
HEENT: MMM
LUNGS: No audible wheeze
CV: A paced RBBB on tele
ABD: ND
EXT: No edema B/L
NEURO: Gross non-focal
SKIN: No rash
[2024-07-16] MEDS: TYLENOL 650 MG PO ×2 (11:01→19:54)
--- NOTE | 2024-07-16 15:43 | CM ---
Spoke w/ [facility] re pt.
Clinicals requested to be sent to [phone]. Fax sent
PT/OT currently rec. home PT vs no needs. Pt is almost at PLOF
Pt seen bedside, pt agreeable to home PT and says she will use the physical therapists at facility
Left message to Yolanda, nurse global upstream marketing manager at facility.
Cont 3L O2
Plan: Return to facility w/ home PT
[facility] residential living

Report: [phone]
Plan: Return to facility w/ home PT
[2024-07-16] MEDS: XARELTO 20 MG PO (17:05)
[2024-07-16] MEDS: LIPITOR 80 MG PO (17:05)
[2024-07-16] MEDS: CELEXA 10 MG PO (19:54)
[2024-07-16] MEDS: CELEXA 20 MG PO (19:54)
[2024-07-17 03:56] VITALS: BP 162/80
[2024-07-17 06:00] VITALS: BMI 23.8
[2024-07-17 07:30] VITALS: BP 159/76
[2024-07-17 08:09] VITALS: BMI 23.6
[2024-07-17] MEDS: SPIRIVA RESPIMAT 2.5 MCG 2 PUFF INH (08:10)
[2024-07-17] MEDS: SYMBICORT 160/4.5 MCG INHALER 2 PUFF INH (08:10)
[2024-07-17] MEDS: LASIX 80 MG IV (08:18)
[2024-07-17] MEDS: MUCINEX 600 MG PO (08:19)
[2024-07-17] MEDS: BETAPACE 120 MG PO (08:19)
[2024-07-17] MEDS: METAMUCIL, KONSYL 1 PACKET PO (08:19)
[2024-07-17] MEDS: KCL 20 MEQ PO (08:19)
[2024-07-17] MEDS: FARXIGA 10 MG PO (08:19)
[2024-07-17 08:21] LABS: Hematocrit 41.4 % (37.0-47.0); Hemoglobin 13.7 g/dL (12.0-16.0); Mean Corp Hgb Conc. 33.1 g/dL (33.0-37.0); Mean Corpuscular Hgb 33.6 pg (27.0-31.0); Mean Corpuscular Volume 101.5 fL (81.0-99.0); Mean Platelet Volume 10.6 fL (7.4-10.4); Platelet Count 187 10^3/uL (130-400); Red Blood Cell Count 4.08 10^6/uL (4.20-5.40); Red Cell Dist. Width 13.5 % (11.5-14.5); White Blood Cell Count 10.8 10^3/uL (4.8-10.8)
[2024-07-17 09:05] LABS: Blood Urea Nitrogen 42 mg/dl (7-17); Calcium 9.5 mg/dl (8.4-10.2); Carbon Dioxide 34 mmol/L (22-30); Chloride 101 mmol/L (98-107); Estimated Creatinine Clearance 40 ml/min; Glucose 102 mg/dl (70-99); Potassium 4.7 mmol/L (3.5-5.1); Sodium 145 mmol/L (135-145); eGFR > 60.00
[2024-07-17 09:26] LABS: Magnesium 2.8 mg/dl (1.6-2.3)
[2024-07-17] MEDS: TYLENOL 650 MG PO (11:16)
[2024-07-17 11:27] VITALS: BP 111/53
[2024-07-17 12:47] VITALS: BP 145/70
--- NOTE | 2024-07-17 13:18 | W.PN.HOSP.TC ---
Addendum entered and electronically signed by Parveen Tillman MD 07/17/24 15:00:
Seen and examined by me independently in collaboration with the medical geneticist Stephen.
Lab data and imaging data reviewed.
Addendum as below :
Patient feels improved with regards to breathing. Stable on 3 L of oxygen. Chest without any bronchospasm or crackles.
Improved weight to 141 pounds which is a drop of 8 pounds this visit and lower than her most recent weights in the [facility].Cr stable.
Medically stable for discharge. Appreciate cardiology input. Recommend transition to oral Lasix 80 mg twice daily. Follow with cardiology as an outpatient.
Total time of discharge 32 minutes
Original Note:
Today's Communication/Plan
-
* IV to PO furosemide.
* Follow daily weights, I&Os and electrolytes.
* Oxygen supplementation to keep saturation 88-92%.
* PT-OT evaluation.
* Anticipated discharge today.
Assessment / Plan
Assessment / Plan
Assessment
Asia Downing, age 84, underwent an elective right heart catheterization on 07-13-24. Her medical history is significant for chronic heart failure with preserved ejection fraction and refractory chronic obstructive pulmonary disease. She has been
feeling increasingly dyspneic with exertion and ambulation over the past several weeks. Daily dry weights have been stable and she has not noted increased abdominal distention (where she usually accumulates fluids). The catheterization showed
elevated pulmonary artery pressure. She was dyspneic after the procedure and recommended to be admitted for intravenous diuresis. Of note, the patient was at 147 lbs the day before cath at home; dry weight is around 140-141 lbs.
Impression and plan
Acute on chronic heart failure with preserved ejection fraction
- Right heart catheterization with elevated pulmonary pressures on 07-13-24.
- Admitting for intravenous diuresis.
- IV to PO furosemide 80 mg twice a day.
- Monitor daily weights, I&Os and electrolytes.
- Sodium and fluid restrictions.
- Oxygen supplementation as needed.
- Continue dapagliflozin.
- Cardiology following.
Chronic hypoxic respiratory failure
Refractory chronic obstructive pulmonary disease
- On 3L at home continuously; keep oxygen saturation between 88-92%.
- Continue agklneirwct-unzytxwrzoyv-soxhevmvpe and guaifenesin.
Pulmonary hypertension
- WHO type 2 vs. 3, possibly 5?
- Likely multifactorial in setting of volume overload and underlying severe COPD.
- IV diuresis.
Paroxysmal atrial fibrillation
- Continue sotalol and rivaroxaban.
Sick sinus syndrome status post pacemaker
- Atrial-paced rhythm.
- Monitor on telemetry.
Atherosclerotic cardiovascular disease
- History of femoral and coronary stents.
- Continue atorvastatin.
Essential hypertension
- Losartan recently discontinued.
- Monitor vitals.
Osteoporosis
- On alendronate, calcium and vitamin D.
Persistent depressive disorder
- Continue citalopram.
Chronic constipation
- Continue Metamucil.
Ocular dryness
- Continue eye drops.
History of transitional cell carcinoma of bladder
History of vocal cord cancer
History of tobacco use disorder
- Cancers in remission; quit smoking 27 years ago.
Daily alcohol use
- 1 glass of scotch per day.
- Recommended to cut back/quit.
Thromboprophylaxis
- Rivaroxaban.
Code status
- Full.
- Power of commercial attorney: , Edwin.
Anticipated Discharge: Today
Subjective/Interval History
-
Date of Service: July 17, 2024
Stable overnight. At dry weight. Feeling good.
Objective Data
-
Labs:
Laboratory Results
07/17/24
07:53
WBC 10.8
Hgb 13.7
Hct 41.4
Plt Count 187
Sodium 145
Potassium 4.7
Chloride 101
Carbon Dioxide 34 H
BUN 42 H
Creatinine 0.9
Glucose 102 H
Calcium 9.5
Vital Signs:
Vital Signs
Temp Pulse Resp BP Pulse Ox
97.3 F 87 18 145/70 94
07/17/24 12:47 07/17/24 12:47 07/17/24 12:47 07/17/24 12:47 07/17/24 12:47
I&O
07/16/24 07/17/24 07/18/24
06:59 06:59 06:59
Intake Total 900 / 900 960 / 960
Output Total 1000 / 1000 150 / 150
Balance -100 / -100 810 / 810
Review of Systems
-
History Source: Patient
Constitutional: Reports No Symptoms
EENT: Reports No Symptoms Reported
Respiratory: Reports No Symptoms
Cardiac: Reports No Symptoms
Abdomen/GI: Reports No Symptoms
Genitourinary: Reports No Symptoms
Musculoskeletal: Reports No Symptoms
Skin: Reports No Symptoms
Neuro: Reports No Symptoms
Endocrine: Reports No Symptoms
Hematologic / Lymphatic: Reports No Symptoms
Allergy / Immunology: Reports No Symptoms
Physical Exam
-
General: No Apparent Distress and Comfortable
HEENT: Normocephalic, Atraumatic, Moist Mucous Membranes, Anicteric, No Ptosis and Oxygen (3L via NC)
Respiratory: Crackles (faint bilateral, improved) and Non Labored Respirations
Cardiac: Regular Rhythm and S1/S2
GI: Soft, Nontender and Distended (improved)
Genito-urinary: No Costovertebral Tender
Musculoskeletal: No Clubbing, No Cyanosis and No Edema
Skin: Warm, Dry and IV Access / Catheter Site
Neuro: Awake, Alert, Oriented and No Motor Deficits
Hematologic / Lymphatic: No Lymphadenopathy
Psych: Calm
--- NOTE | 2024-07-17 13:40 | W.PN.CARDCBS ---
Addendum entered and electronically signed by Kameron Cardona MD 07/17/24 16:10:
I saw and examined the patient.
The Ase Certified Technician's note was reviewed and I agree with the note.
Comment:
GEN: No distress, awake, Ox3
HEENT: supple, anicteric, mmm
LUNGS: bilat rhonchi
CV: Reg, S1/S2, /6 syst LSB, no gallop
ABD: soft, BS+, NT/ND
EXT: No edema
NEURO: Gross non-focal
SKIN: No rash
Plan:
Clinically she has diuresed well. Will discharge on Lasix 80 mg p.o. twice daily.
Okay for discharge with cardiology follow-up.
Continue sotalol/Xarelto/Farxiga.
Original Note:
Today's Communication / Plan
-
D/C to home on higher dose Lasix 80 mg PO BID
Cardiology f/u arranged
Impression / Plan
-
PCP: Dr. Carmen
Primary auto radio mechanic: Dr Srinivas Encinas
Impression:
Admitted for acute HF after outpatient RHS 07/13/24
Acute HFpEF
EF 60 to 65%, NYHA class III
Pulmonary hypertension likely mixed with component of volume overload and lung disease (COPD and possible pulm fibrosis)
Paroxysmal AF
Chronic Xarelto OAC
SSS s/p Medtronic DC PPM
HTN
CAD s/p RCA PCI 2006
PAD s/p left SFA stent 02/2012 then restenosis and recurrent stent 06/2013 then restenosis and recurrent stent 10/26/16
s/p Right carotid artery stenting
Central retinal artery occlusion of the right eye and subsequent blindness
Benign head tremor, severe
Orthostatic hypotension.
h/o TCC of bladder
Echo 07/19/18: EF 60-65%
Echo 07/04/2024: EF 60-65%, no WMA, stage II diastolic dysfunction. Normal RV size and function, mild MR, mild to mod TR with PAP 41 mmHg
RHC 07/13/2024: Elevated right and left ventricular filling pressures with mean PAP 50, PCWP 31, PVR 5.9 Wood Units, cardiac Output 3.4 L/min with Cardiac Index 2.0 L/m2
Plan:
-Weight is down another 2 lbs overnight. Patient diuresed most effectively when Lasix was increased to 80 mg IV BID. Recommend increasing outpatient Lasix dose to 80 mg PO BID.
-EF preserved at 60-65% by echo last month.
-Losartan stopped due to orthostasis 01/2024
-Patient is chronically on sotalol for rhythm control rather than a cardioselective BB.
-Outpatient dose of Jardiance 10 mg daily (changed to Farxiga while inpatient due to formulary) has been continued
-COPD and pulmonary eval/treatment as per primary service. Her usual 3 L NC has been continued throughout admission. Patient follows with Dr. Garcia as an outpatient.
-Remains in sinus rhythm/atrial paced on sotalol 120 mg BID. QTc 513 ms paced rhythm on ECG from 07/15/24 reviewed by me.
-Outpatient dose of Xarelto 20 mg daily has been continued
-Patient is stable for d/c to home from cardiac standpoint and follow up being arranged.
HPI: Patient referred for outpatient RHC which was done 07/13/24 demonstrating elevated right and left ventricular filling pressures with mean PAP 50, PCWP 31, PVR 5.9 Wood Units, cardiac Output 3.4 L/min with Cardiac Index 2.0 L/min/m2 with
underlying O2 dependent COPD and probable diastolic dysfx. CXR with subtle increased reticular markings scattered throughout both lungs, which has slightly increased comparing back to 2020 radiograph. Findings are most suggestive of interstitial
fibrosis. She was admitted for aggressive IV Lasix diuresis.
Progress Note - Energy Management Specialist
Subjective
Date of Service: July 17, 2024
Feels great, wants to go home
Objective
Labs:
07/17/24 07:53
07/17/24 07:53
Labs
Hgb 13.7 g/dL (12.0-16.0) 07/17/24 07:53
Hct 41.4 % (37.0-47.0) 07/17/24 07:53
Plt Count 187 10^3/uL (130-400) 07/17/24 07:53
Sodium 145 mmol/L (135-145) 07/17/24 07:53
Potassium 4.7 mmol/L (3.5-5.1) 07/17/24 07:53
BUN 42 mg/dl (7-17) H 07/17/24 07:53
Creatinine 0.9 mg/dL (0.6-1.0) 07/17/24 07:53
Glucose 102 mg/dl (70-99) H 07/17/24 07:53
Troponins
07/15/24
03:45
Troponin I < 0.012
Vital Signs and I&O:
Vital Signs
Temp Pulse Resp BP Pulse Ox
97.3 F 87 18 145/70 94
07/17/24 12:47 07/17/24 12:47 07/17/24 12:47 07/17/24 12:47 07/17/24 12:47
Vital Signs
Temp Pulse Resp BP Pulse Ox
97.3 F 87 18 145/70 94
07/17/24 12:47 07/17/24 12:47 07/17/24 12:47 07/17/24 12:47 07/17/24 12:47
Intake & Output
07/15/24 07/16/24 07/17/24 07/18/24
06:59 06:59 06:59 06:59
Intake Total 480 / 480 900 / 900 960 / 960
Output Total 1275 / 1275 1000 / 1000 150 / 150
Balance -795 / -795 -100 / -100 810 / 810
Physical Exam
Physical Exam
GEN: No distress, awake, alert and oriented x3. Tremulous
HEENT: MMM
LUNGS: No audible wheeze
CV: A paced RBBB on tele
ABD: ND
EXT: No edema B/L
NEURO: Gross non-focal
SKIN: No rash
--- NOTE | 2024-07-17 14:46 | W.DCSUMMARY ---
Documented by User: Stephen Alex MD, Resident 07/17/24 14:59
Discharge Summary
Discharge Data
Date of Admission: 07/13/24
Date of Discharge: 07/17/24
-
Pending Results: No
Hospital Course
Primary discharge diagnosis
* Acute on chronic heart failure with preserved ejection fraction
Secondary discharge diagnoses
- Chronic hypoxic respiratory failure
- Refractory chronic obstructive pulmonary disease
- Pulmonary hypertension
- Paroxysmal atrial fibrillation
- Sick sinus syndrome
- Presence of pacemaker
- Atherosclerotic cardiovascular disease
- Essential hypertension
- Osteoporosis
- Persistent depressive disorder
- Chronic constipation
- Ocular dryness
- Daily alcohol use
- History of transitional cell carcinoma of bladder
- History of vocal cord cancer
- History of tobacco use disorder
Hospital course
Asia Downing, age 84, underwent an elective right heart catheterization on 07-13-24 for increased dyspnea with exertion over the past several weeks. The catheterization showed elevated pulmonary artery pressure, and she was dyspneic after the
procedure. She was recommended to be admitted for intravenous diuresis. She was followed by cardiology. She underwent 4 days of intravenous diuresis and her weight went down from 149.4 lbs to 141.5 lbs, which is closer to her dry home weight. She
remained hemodynamically stable throughout her visit and blood work remained unremarkable. Her physical examination showed continued improvement over her course, and she was feeling much better by the time of her discharge - back to her baseline.
Her home furosemide dosing was upped from 40 mg twice a day to 80 mg twice a day by cardiology. Recommended outpatient follow-up with primary and cardiology in less than 1 week.
Discharge Plan
-
Patient Disposition: Fci/SNF
Discharge Diagnosis/Procedures: Acute heart failure, Right heart cath
Condition: Good
Diet: Low Cholesterol, 2 Gram Sodium and Restrict fluids to 48 oz
Activity: With assistance, As tolerated and No strenuous activity
Driving Restrictions: As prior to admission
Bathing Restrictions: OK to Shower
Other Services: PT and OT
Specialty Instructions: Weigh Daily- Call MD for wt gain/loss 3 lbs overnight/5 lbs in 1 week
Instructions: *DCA Heart Failure Instructions
Stand Alone Forms: DC Instructions- Cath/EP Lab
Referrals:
Vin Cramen Jr., DO [Family Provider] - in one to two months
Srinivas Encinas MD [Active] - 07/24/24 2:40 pm (You are scheduled to see Dr. Encinas's physician certified nursing assistant, Aylin, at the [place] office on 07/24/24 at 2:40 PM. You are then scheduled to see Dr. Encinas on 08/17/24 at 3:20 PM. Please call [phone]
if you need to reschedule.)
Additional Discharge Medication Instructions: - Increase Lasix (furosemide) to 80 mg (two 40 mg tablets or one 80 mg tablet) twice a day.
Prescriptions:
New
furosemide 80 mg Tablet
80 mg PO BID@0800,1600 Qty: 60 11RF
Continued
cholecalciferol (vitamin D3) [Vitamin D3] 400 UNITS tablet
800 units PO DAILY
sotalol 120 MG tablet
120 mg PO BID
acetaminophen [Tylenol Extra Strength] 500 MG tablet
1,000 mg PO Q6HPRN PRN (Reason: mild pain)
Refresh Classic (PF) 10 DROPS dropperette
1 drops BOTH EYES QIDPRN PRN (Reason: dry eyes)
Xarelto 20 MG tablet
20 mg PO QPM Qty: 30 11RF
atorvastatin 80 mg Tablet
80 mg PO DAILY
alendronate [Fosamax] 70 mg Tablet
70 mg PO WEEKLY
citalopram 20 mg Tablet
30 mg PO HS
Trelegy Ellipta 100-62.5-25 mcg Blister With Device
1 inh INHALATION R DAILY
Metamucil
1 tbsp PO DAILY
Vitamin C
1 tab PO DAILY
calcium
1 tab PO DAILY
Systane (propylene glycol) 0.4-0.3 % Drops
1 drp OPHTHALMIC (EYE) DAILY PRN (Reason: dry eye)
potassium chloride 20 mEq Tablet,Er Particles/Crystals
20 meq PO DAILY
guaifenesin [Mucinex] 600 mg Tablet Extended Release 12hr
600 mg PO BID
Jardiance 10 mg Tablet
10 mg PO DAILY
Discontinued
furosemide [Lasix] 40 mg Tablet
40 mg PO BID
Discharge Orders:
Discharge Patient (As Directed); Ordered 07/17/24
Ordered By: Stephen Alex
Discharge Date and Time
Print Language: BENGALI

Documented by User: Parveen Tillman MD 07/17/24 15:02
Discharge Summary
Discharge Data
Date of Admission: 07/13/24
Date of Discharge: 07/17/24
Discharge Plan
-
Patient Disposition: [facility]/SNF
Discharge Diagnosis/Procedures: Acute heart failure, Right heart cath
Condition: Good
Diet: Low Cholesterol, 2 Gram Sodium and Restrict fluids to 48 oz
Activity: With assistance, As tolerated and No strenuous activity
Driving Restrictions: As prior to admission
Bathing Restrictions: OK to Shower
Other Services: PT and OT
Specialty Instructions: Weigh Daily- Call MD for wt gain/loss 3 lbs overnight/5 lbs in 1 week
Instructions: *DCA Heart Failure Instructions
Stand Alone Forms: DC Instructions- Cath/EP Lab
Referrals:
Vin Carmen Jr., DO [Family Provider] - in one to two months
Srinivas Encinas MD [Active] - 07/24/24 2:40 pm (You are scheduled to see Dr. Encinas's physician certified nursing assistant, Aylin, at the [place] office on 07/24/24 at 2:40 PM. You are then scheduled to see Dr. Encinas on 08/17/24 at 3:20 PM. Please call [phone]
if you need to reschedule.)
Additional Discharge Medication Instructions: - Increase Lasix (furosemide) to 80 mg (two 40 mg tablets or one 80 mg tablet) twice a day.
Prescriptions:
New
furosemide 80 mg Tablet
80 mg PO BID@0800,1600 Qty: 60 11RF
Continued
cholecalciferol (vitamin D3) [Vitamin D3] 400 UNITS tablet
800 units PO DAILY
sotalol 120 MG tablet
120 mg PO BID
acetaminophen [Tylenol Extra Strength] 500 MG tablet
1,000 mg PO Q6HPRN PRN (Reason: mild pain)
Refresh Classic (PF) 10 DROPS dropperette
1 drops BOTH EYES QIDPRN PRN (Reason: dry eyes)
Xarelto 20 MG tablet
20 mg PO QPM Qty: 30 11RF
atorvastatin 80 mg Tablet
80 mg PO DAILY
alendronate [Fosamax] 70 mg Tablet
70 mg PO WEEKLY
citalopram 20 mg Tablet
30 mg PO HS
Trelegy Ellipta 100-62.5-25 mcg Blister With Device
1 inh INHALATION R DAILY
Metamucil
1 tbsp PO DAILY
Vitamin C
1 tab PO DAILY
calcium
1 tab PO DAILY
Systane (propylene glycol) 0.4-0.3 % Drops
1 drp OPHTHALMIC (EYE) DAILY PRN (Reason: dry eye)
potassium chloride 20 mEq Tablet,Er Particles/Crystals
20 meq PO DAILY
guaifenesin [Mucinex] 600 mg Tablet Extended Release 12hr
600 mg PO BID
Jardiance 10 mg Tablet
10 mg PO DAILY
Discontinued
furosemide [Lasix] 40 mg Tablet
40 mg PO BID
Discharge Orders:
Discharge Patient (As Directed); Ordered 07/17/24
Ordered By: Stephen Alex
Discharge Date and Time
Print Language: BENGALI
--- NOTE | 2024-07-17 15:01 | CM ---
Addendum entered by Joel Paredes 07/17/24 15:44:
Faxed VN/PT order to facility.
Original Note:
Per hospitalist pt will d/c today
Per PT/OT, recommendation for home PT
CM spoke w/ Yolanda/[facility] re pt d/c today
Per Yolanda, will need PT order faxed
Per Yolanda, facility has OP therapy ([facility]) that will contact pt tomorrow to set up for home PT
CM TT hospitalist re PT order
Met w/ pt bedside. Pt was fully dressed sitting in chair. She stated spouse is on his way to pick her up. Pt has portable O2 w/ her at bedside.
IMM reviewed, pt given copy. Copy placed in chart.
[facility] residential living

Report: [phone]
Plan: Home w/ home PT
== END 2024-07-17 15:29 | DRG 286 ==
LOC: 4 EAST ACU 11:37
PROVIDERS: Internal Medicine Cardiovascular Disease; Nurse Practitioner Family; Student in an Organized Health Care Education/Training Program; ADMITTING PHYSICIAN Hospitalist; ATTENDING PHYSICIAN Internal Medicine; FAMILY PHYSICIAN Family Medicine
PROC: 4A023N6 Measurement of Cardiac Sampling and Pressure, Right Heart, Percutaneous Approach (ICD-10-PCS; 2024-07-13)
PROC: B2111ZZ Fluoroscopy of Multiple Coronary Arteries using Low Osmolar Contrast (ICD-10-PCS; 2024-07-13)
DX: I11.0 Hypertensive heart disease with heart failure (principal); I50.33 Acute on chronic diastolic (congestive) heart failure; J96.11 Chronic respiratory failure with hypoxia; I27.20 Pulmonary hypertension, unspecified; I48.0 Paroxysmal atrial fibrillation; Z79.01 Long term (current) use of anticoagulants; I49.5 Sick sinus syndrome; Z95.0 Presence of cardiac pacemaker; I25.10 Atherosclerotic heart disease of native coronary artery without angina pectoris; M81.0 Age-related osteoporosis without current pathological fracture; J44.9 Chronic obstructive pulmonary disease, unspecified; Z99.81 Dependence on supplemental oxygen
CPT/HCPCS: 71046; 80048; 80053; 82962; 83735; 83880; 84443; 84484; 85027; 93005; 93451; 94640; 97116; 97162; 97166; 97530; 99406; C1894

== ENCOUNTER → 2024-07-20 10:00 | Outpatient (REF) | payer OTHER, SELFPAY ==
[2024-07-20 10:38] LABS: ALT (SGPT) 28 U/L (0-35); AST (SGOT) 31 U/L (14-36); Albumin 3.9 g/dl (3.5-5.0); Alkaline Phosphatase 43 U/L (38-126); Blood Urea Nitrogen 42 mg/dl (7-17); Carbon Dioxide 32 mmol/L (22-30); Chloride 103 mmol/L (98-107); Glucose 103 mg/dl (70-99); Potassium 4.4 mmol/L (3.5-5.1); Sodium 145 mmol/L (135-145); Total Bilirubin 0.5 mg/dl (0.2-1.3); eGFR 54.87
[2024-07-20 14:58] LABS: % Basophils 0.1 % (0-2); % Eosinophils 0.3 % (0-6); % Immature Granulocytes 0.6 % (0-0.5); % Lymphocytes 16.5 % (20.5-51.1); % Monocytes 9.7 % (1.7-9.3); % Neutrophils 72.8 % (42.2-75.2); Absolute Immature Granulocytes 0.1 10^3/uL (0-0.05); Absolute Lymphocytes 1.5 10^3/uL (1.2-3.4); Absolute Monocytes 0.9 10^3/uL (0.1-0.6); Absolute Neutrophils 6.4 10^3/uL (1.4-6.5); Hematocrit 38.9 % (37.0-47.0); Hemoglobin 12.5 g/dL (12.0-16.0); Mean Corp Hgb Conc. 32.1 g/dL (33.0-37.0); Mean Corpuscular Hgb 32.7 pg (27.0-31.0); Mean Corpuscular Volume 101.8 fL (81.0-99.0); Mean Platelet Volume 11.1 fL (7.4-10.4); Nucleated Red Blood Cells % 0 %; Platelet Count 194 10^3/uL (130-400); Red Blood Cell Count 3.82 10^6/uL (4.20-5.40); Red Cell Dist. Width 13.6 % (11.5-14.5); White Blood Cell Count 8.8 10^3/uL (4.8-10.8)
== END ==
LOC: OLABPV 10:00
PROVIDERS: ATTENDING PHYSICIAN Family Medicine
DX: I50.23 Acute on chronic systolic (congestive) heart failure (principal); R73.03 Prediabetes; D64.9 Anemia, unspecified
CPT/HCPCS: 36415; 80053; 85025

== ENCOUNTER → 2024-08-07 10:11 | Outpatient (REF) | payer OTHER, SELFPAY | LOC: RAD 10:11 | PROVIDERS: ATTENDING PHYSICIAN Surgery Vascular Surgery; FAMILY PHYSICIAN Family Medicine | DX: I65.23 Occlusion and stenosis of bilateral carotid arteries (principal); I73.9 Peripheral vascular disease, unspecified | CPT/HCPCS: 93880; 93922; 93925 ==

== ENCOUNTER → 2024-08-20 12:24 | Outpatient (REF) | payer OTHER, SELFPAY | LOC: RAD 12:24 | PROVIDERS: ATTENDING PHYSICIAN Physical Medicine & Rehabilitation; FAMILY PHYSICIAN Family Medicine | DX: M54.16 Radiculopathy, lumbar region (principal) | CPT/HCPCS: 72131 ==

== ENCOUNTER → 2024-10-27 10:35 | Outpatient (REF) | payer OTHER, SELFPAY | LOC: RAD 10:35 | PROVIDERS: ATTENDING PHYSICIAN Nurse Practitioner Family; FAMILY PHYSICIAN Family Medicine | DX: R93.89 Abnormal findings on diagnostic imaging of other specified body structures (principal); J84.9 Interstitial pulmonary disease, unspecified | CPT/HCPCS: 71250 ==

== ENCOUNTER → 2025-04-30 13:37 | Outpatient (REF) | payer OTHER, SELFPAY | LOC: RAD 13:37 | PROVIDERS: ATTENDING PHYSICIAN Family Medicine | DX: M85.89 Other specified disorders of bone density and structure, multiple sites (principal); C13.8 Malignant neoplasm of overlapping sites of hypopharynx; Z78.0 Asymptomatic menopausal state | CPT/HCPCS: 71046; 77080 ==

== ENCOUNTER → 2025-08-09 13:45 | Outpatient (REF) | payer OTHER, SELFPAY | LOC: RAD 13:45 | PROVIDERS: ATTENDING PHYSICIAN Surgery Vascular Surgery | DX: I65.23 Occlusion and stenosis of bilateral carotid arteries (principal); I73.9 Peripheral vascular disease, unspecified | CPT/HCPCS: 93880; 93922; 93925 ==

== ENCOUNTER 2025-08-23 05:52 | Observation (INO) | payer OTHER, SELFPAY ==
[2025-08-23] VITALS (11 sets, daily range): BP systolic 92–171; BP diastolic 55–95
[2025-08-23 02:20] LABS: Hematocrit 41.7 % (37.0-47.0); Hemoglobin 13.3 g/dL (12.0-16.0); Mean Corp Hgb Conc. 31.9 g/dL (33.0-37.0); Mean Corpuscular Volume 97.4 fL (81.0-99.0); Nucleated Red Blood Cells % 0 %; Platelet Count 278 10^3/uL (130-400); Red Cell Dist. Width 15.4 % (11.5-14.5)
[2025-08-23 03:00] LABS: Troponin I 0.016 ng/ml
[2025-08-23 03:04] LABS: Blood Urea Nitrogen 36 mg/dl (7-17); Calcium 6.8 mg/dl (8.4-10.2); Carbon Dioxide 24 mmol/L (22-30); Chloride 110 mmol/L (98-107); Glucose 87 mg/dl (70-99); Sodium 140 mmol/L (135-145); eGFR > 60.00
--- NOTE | 2025-08-23 03:13 | ED.GENMED ---
History of Present Illness
<Breanne Jamil PA-C - Last Filed: 08/23/25 04:44>
General
Chief Complaint: Chest Pain
Source: patient
Exam Limitations: none
Time Seen by Provider: 08/23/25 02:37
Nursing documentation reviewed up to this point in time: agreed with
History of Present Illness
History of Present Illness:
SEE mdm
Past History
<RANDA Michele Last Filed: 08/23/25 04:44>
Past History
ED Past Medical History: Other (bladder cancer), Other (AFIB) and Other (PAF status post pacemaker coronary disease status post stent peripheral artery disease status post femoral stent, COPD, depression)
ED Past Surgical History: Gynecological (Hysterectomy)
Patient has exhibited threatening behavior?: No
PSI?: No
Social History
Tobacco: Former smoker
Alcohol: Occasional
Drug: None
Family History
Family History: CAD
Review of Systems
<RANDA Michele Last Filed: 08/23/25 04:44>
Review of Systems
Allergies reviewed?: Yes
All Other Systems: Not applicable
Phy Exam
<RANDA Michele Last Filed: 08/23/25 04:44>
Physical Exam
Physical Exam:
GENERAL: Alert , in no apparent distress
EYE: pupils equal and reactive
NECK: Supple
ENT: o/p clr, mmm.
HOARSE VOICE
CARDIAC: PACED, REGULAR,
LUNGS: Clear breath sounds bilaterally, no acute respiratory distress, no wheezes/rales/rhonchi
ABDOMEN: Soft, without focal tenderness, no r/g, no cvat, normal bowel sounds
NEUROLOGICAL: Alert and oriented, no focal neuro deficits, very significant resting tremor
SKIN: Warm and dry, skin intact.
MUSCULOSKELETAL: No edema, well perfused. neg milly's sign
PSYCH: Normal and appropriate interaction.
Scores
<Breanne Jamil PA-C - Last Filed: 08/23/25 04:44>
Heart Score for Chest Pain Patients
STEMI patient?: No
History: Moderately Suspicious
ECG: Nonspecific Repolarization
Age: >/= 65 years
Risk Factors: >/= 3 Risk Factors or History of CAD
Troponin: >1 - <3 x Normal Limit
Heart Score for Chest Pain Patients: 7
Heart Score Risk: 72.7 % MACE over next 6 weeks
Course
<Breanne Jamil PA-C - Last Filed: 08/23/25 04:44>
Orders/Labs/Results
Orders:
Orders
08/23/25 01:02
EKG [Electrocardiogram (*1)] Urgent
Reason for Study: Chest Pain
08/23/25 01:03
EKG- Treatment ONCE
08/23/25 01:04
Basic Metabolic Panel Urgent
Comment: NO K
Complete Blood Count/With Diff Urgent
NT-proBNP Urgent
Comment: ADD ON
Troponin I Urgent
08/23/25 03:11
Ionized Calcium Urgent
08/23/25 03:13
Add On- LAB Urgent
Tests Added?: magnesium, phosphorus
08/23/25 03:17
Add On- LAB Urgent
Tests Added?: BNP
CR Chest - 2 Views Urgent
Comment:
Reason For Exam: cp
08/23/25 03:30
Aspirin Chewable [Low Strength Aspirin] 324 mg PO NOW STA
08/23/25 04:01
Add On- LAB Urgent
Tests Added?: lipase
08/23/25 04:09
Lipase Urgent
Magnesium Urgent
Comment: REDRAW
Phosphorus Urgent
Potassium Urgent
Comment: REDRAW
Abnormal Lab Results
08/23/25 08/23/25
01:04 03:11
WBC 11.0 H 10^3/uL
(4.8-10.8)
MCH 31.1 H pg
(27.0-31.0)
MCHC 31.9 L g/dL
(33.0-37.0)
RDW 15.4 H %
(11.5-14.5)
MPV 10.6 H fL
(7.4-10.4)
Abs Immat Gran (auto) 0.1 H 10^3/uL
(0-0.05)
Absolute Neuts (auto) 8.2 H 10^3/uL
(1.4-6.5)
Absolute Monos (auto) 1.1 H 10^3/uL
(0.1-0.6)
Lymphocytes % 14.6 L %
(20.5-51.1)
Monocytes % 9.9 H %
(1.7-9.3)
Chloride 110 H mmol/L
(98-107)
BUN 36 H mg/dl
(7-17)
Calcium 6.8 L* mg/dl
(8.4-10.2)
Ionized Calcium 1.02 L mMOL/L
(1.15-1.33)
08/23/25 01:04
Vital Signs
Initial and Last Documented VS:
Initial Vital Signs
Temp Pulse Resp BP
36.6 C 76 18 137/71
08/23/25 00:58 08/23/25 00:58 08/23/25 00:58 08/23/25 00:58
Last Documented Vital Signs
Temp Pulse Resp BP Pulse Ox
36.6 C 102 22 148/95 95
08/23/25 00:58 08/23/25 04:04 08/23/25 04:04 08/23/25 04:04 08/23/25 03:45
<Neftali Kwok, DO - Last Filed: 08/23/25 03:29>
Orders/Labs/Results
Orders:
Orders
08/23/25 01:02
EKG [Electrocardiogram (*1)] Urgent
Reason for Study: Chest Pain
08/23/25 01:03
EKG- Treatment ONCE
08/23/25 01:04
Basic Metabolic Panel Urgent
Comment: NO K
Complete Blood Count/With Diff Urgent
NT-proBNP Urgent
Comment: ADD ON
Troponin I Urgent
08/23/25 03:11
Ionized Calcium Urgent
08/23/25 03:13
Add On- LAB Urgent
Tests Added?: magnesium, phosphorus
08/23/25 03:17
Add On- LAB Urgent
Tests Added?: BNP
CR Chest - 2 Views Urgent
Comment:
Reason For Exam: cp
08/23/25 03:30
Aspirin Chewable [Low Strength Aspirin] 324 mg PO NOW STA
08/23/25 04:01
Add On- LAB Urgent
Tests Added?: lipase
08/23/25 04:09
Lipase Urgent
Magnesium Urgent
Comment: REDRAW
Phosphorus Urgent
Potassium Urgent
Comment: REDRAW
Abnormal Lab Results
08/23/25 08/23/25
01:04 03:11
WBC 11.0 H 10^3/uL
(4.8-10.8)
MCH 31.1 H pg
(27.0-31.0)
MCHC 31.9 L g/dL
(33.0-37.0)
RDW 15.4 H %
(11.5-14.5)
MPV 10.6 H fL
(7.4-10.4)
Abs Immat Gran (auto) 0.1 H 10^3/uL
(0-0.05)
Absolute Neuts (auto) 8.2 H 10^3/uL
(1.4-6.5)
Absolute Monos (auto) 1.1 H 10^3/uL
(0.1-0.6)
Lymphocytes % 14.6 L %
(20.5-51.1)
Monocytes % 9.9 H %
(1.7-9.3)
Chloride 110 H mmol/L
(98-107)
BUN 36 H mg/dl
(7-17)
Calcium 6.8 L* mg/dl
(8.4-10.2)
Ionized Calcium 1.02 L mMOL/L
(1.15-1.33)
08/23/25 01:04
Vital Signs
Initial and Last Documented VS:
Initial Vital Signs
Temp Pulse Resp BP
36.6 C 76 18 137/71
08/23/25 00:58 08/23/25 00:58 08/23/25 00:58 08/23/25 00:58
Last Documented Vital Signs
Temp Pulse Resp BP Pulse Ox
36.6 C 102 22 148/95 95
08/23/25 00:58 08/23/25 04:04 08/23/25 04:04 08/23/25 04:04 08/23/25 03:45
<Breanne Jamil PA-C - Last Filed: 08/23/25 04:44>
MDM/Problems Addressed
Differential Diagnosis Includes:
SEE mdm
MDM/Problems Addressed:
Note:
CHIEF COMPLAINT(S)
The patient reports sudden onset of diaphoresis and heart palpitations.
HISTORY OF PRESENT ILLNESS
The patient is a female with a history of chronic obstructive pulmonary disease (COPD) who presented with sudden onset of diaphoresis and heart palpitations WELL CHEST PAIN at approximately 11:00 PM while watching television. She describes the
sensation as a sharp pain spreading across her chest, with no radiation to the back, and initially unaware of her heart rhythm changes until observed on her monitoring device. She wears oxygen at four liters for her COPD. The patient denies any
history of myocardial infarction or thromboembolic events but had stent placed years ago. Currently, she does not feel more short of breath than usual. She rates her current discomfort as a two on a scale of zero to ten. The patient mentions having
a pacemaker due to atrial fibrillation and undergoing medical management for congestive heart failure with furosemide at a dose of 80 mg. She has not received pre-hospital interventions such as aspirin or nitroglycerin and denies any recent
interventions by EMS. The patient has had her pacemaker replaced two years ago and has experienced no prior significant complications.
PAST MEDICAL AND SURGICAL HISTORY
The patient has chronic obstructive pulmonary disease (COPD) and a pacemaker due to atrial fibrillation. She is treated for congestive heart failure and has had a cholecystectomy.
SOCIAL DETERMINANTS AFFECTING HEALTH
The patient denies smoking or continued tobacco use.
MEDICATIONS
The patient is currently on furosemide, 80 mg daily, for congestive heart failure.
PHYSICAL EXAM
see above
Nursing notes reviewed and vital signs reviewed.
PLAN
1. Await pending blood work, including cardiac enzymes to rule out myocardial infarction due to pacemaker interference with electrocardiogram readings.
2. Obtain a chest X-ray to assess for underlying causes.
3. Monitor troponin levels: If initial results are normal, a repeat test will be performed due to the possibility of delayed elevation.
4. Interrogate pacemaker to check for recorded cardiac events.
5. Monitor and manage patient�s pain levels, with escalation of care if symptoms worsen.
6. Hydration with water will be considered after assessing initial enzyme results.
DIFFERENTIAL DIAGNOSIS
The Differential Diagnosis includes, in no particular order and is not limited to:
1. Myocardial infarction
2. Cardiac arrhythmia
3. Atrial fibrillation with rapid ventricular response
4. Pulmonary embolism
5. Congestive heart failure exacerbation
6. Anxiety or panic attack
7. Pneumothorax
8. Myocarditis
9. Acute coronary syndrome
10. COPD exacerbation
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
RCA stent
carotid endarterectomy
copd on o2
chf on lasix
AF s/p pacer xarelto
here with palpitations, chest pain and diaphoresis at 11 pm while at rest
no syncope
no sob
feels better now, lasted 1 hour
here paced rhythm 80s
trop 0.016
no VT episodes on pacer interrogation
ca is low, ionized low
stopped her calcium supp 2 weeks ago for no reason
HEART score high
will admit
<Breanne Jamil PA-C - Last Filed: 08/23/25 04:44>
*Pulse Oximetry
SaO2: 96
Patient hypoxic: no (95)
*Critical Care Note
Total Time (30-74mins, 75-104mins- exclusive of procedures): Not Applicable
ED Attending Note
<Breanne Jamil PA-C - Last Filed: 08/23/25 04:44>
-
Portions of this chart may have been created with voice recognition software.� Occasional wrong word or��sound alike� substitutions may have occurred due to the inherent limitations of voice recognition software.
<Neftali Kwok DO - Last Filed: 08/23/25 03:29>
ED Attending Note
Patient seen and examined by attending physician: Yes
I performed the substantive portion of visit, reviewed & personally made and approve the management plan that is documented in note by myself or DAISY.: Yes
ED Attending Note:
85-year-old female presents with chest pain, palpitations, and diaphoresis. Patient reports this happening for 2 hoursj just prior to arrival. Patient does have a pacemaker and has a history of A-fib. Patient was seen in conjunction with the PA.
I reviewed and agree with her history and treatment plan. On my independent physical exam patient has a resting intention tremor. She seems to have a hoarse voice which she states is her baseline. She is in no respiratory distress. She is on
oxygen and not hypoxic. Patient to be admitted to the hospitalist service for further observation.
Discharge Plan
Departure
Patient Disposition: Admit
Date of Disposition: 08/23/25
Time of Disposition: 04:11
Admit to: Telemetry
Presentation/result/management discussed w/ accepting MD/DO: Hospitalist
Condition: Fair
Covid-19: Not Applicable
Discharge Problem:
Chest pain, Hypocalcemia
Prescriptions:
No Action
cholecalciferol (vitamin D3) [Vitamin D3] 400 UNITS tablet
800 units PO DAILY
sotalol 120 MG tablet
120 mg PO BID
acetaminophen [Tylenol Extra Strength] 500 MG tablet
1,000 mg PO Q6HPRN PRN (Reason: mild pain)
Refresh Classic (PF) 10 DROPS dropperette
1 drops BOTH EYES QIDPRN PRN (Reason: dry eyes)
Xarelto 20 MG tablet
20 mg PO QPM Qty: 30 11RF
atorvastatin 80 mg Tablet
80 mg PO DAILY
alendronate [Fosamax] 70 mg Tablet
70 mg PO WEEKLY
citalopram 20 mg Tablet
30 mg PO HS
Trelegy Ellipta 100-62.5-25 mcg Blister With Device
1 inh INHALATION R DAILY
Metamucil
1 tbsp PO DAILY
Vitamin C
1 tab PO DAILY
calcium
1 tab PO DAILY
Systane (propylene glycol) 0.4-0.3 % Drops
1 drp OPHTHALMIC (EYE) DAILY PRN (Reason: dry eye)
potassium chloride 20 mEq Tablet,Er Particles/Crystals
20 meq PO DAILY
guaifenesin [Mucinex] 600 mg Tablet Extended Release 12hr
600 mg PO BID
Jardiance 10 mg Tablet
10 mg PO DAILY
furosemide 80 mg Tablet
80 mg PO BID@0800,1600 Qty: 60 11RF
Referrals:
Hermilo Yang MD [Family Provider, Vascular Surgery]
Interventions
Interventions:
*General Assessment Last Done: 08/23/25 00:58
*Neglect/Abuse Screening Last Done: 08/23/25 00:58
*ED Influenza Vaccine History Last Done: 08/23/25 00:58
[facility] Fall Risk Assessment Tool Last Done: 08/23/25 01:03
*Risk Screen - Suicide (C-SSRS) Last Done: 08/23/25 00:58
ED- Cardiac Assessment Last Done: 08/23/25 01:15
Discharge Date and Time
Print Language: BURKINAN
[2025-08-23] MEDS: LOW STRENGTH ASPIRIN 324 MG PO (03:41)
--- NOTE | 2025-08-23 04:43 | HPS.HSE ---
Family Physician
-
Family Physician: Hermilo Yang
Chief Complaint
-
Chest pain and palpitations
History of Present Illness
Patient is a 85-year-old female with past medical history significant for atrial fibrillation on anticoagulation, conduction abnormalities status post dual-chamber pacemaker, CHF with diastolic dysfunction, pulmonary fibrosis, chronic hypoxia,
peripheral arterial disease, COPD, hypertension and moderate asthma who presents to the emergency department with episode of palpitations and chest pain.
Patient reported sudden onset of symptoms while she was sitting down watching TV at night. She reported that she felt palpitations and then felt chest discomfort that was mostly epigastric without any radiation. She then broke out into a cold
sweat. She also reports feeling lightheaded ('fainting'). She said that the symptoms lasted for several minutes almost up until 1 hour. She reported that in the past when she has had similar episodes it was associated with uncontrolled atrial
fibrillation. She continues to use home oxygen and reports that she was recently increased to 4 L. She denies any swelling of her lower extremities orthopnea or PND.
She is currently not having any chest pain. In the Emergency Department she was found to be hypocalcemic to INS calcium of 1.05. Patient did discontinue the oral calcium supplementation because she states if she forgets to take them and has
continued to be on alendronate for osteoporosis. She denies paresthesias numbness or tingling.
In the emergency department she was afebrile, blood pressure was 140/95 with a pulse rate of 102. Oxygen saturation is 95% on room air. ECG shows a normal sinus rhythm. Troponin was 0.016 and BNP was 1300. Chest x-ray showed no acute infiltrates.
She had a white count of 11, hemoglobin and platelet counts were normal. Electrolytes BUN and creatinine were normal. Potassium is pending. Interrogation of the device shows normally atrially paced rhythm at 98%. No acute interval events noted.
She was most recently in atrial fibrillation on August 23 for about 4 minutes. For 11 seconds of that. She was in rapid atrial fibrillation.
Medical History
Past Medical History
Past Medical History: Reports Arrhythmia (atrial fibrillation), CAD, Cancer (bladder; vocal cord), CHF (cHFpEF), COPD and Other (PAD; tobacco use disorder)
Past Surgical History: Reports Other (femoral and coronary stents)
Social History
Tobacco: Former Smoker
Alcohol: Daily (1 drink of scotch every night)
Drug: None
Personal:
Family History
Family History: Not pertinent
Allergies / Home Medications
Allergies reflects when Allergies were last updated in [employer].
Home Medications with original date entered in [employer]
Allergy/Medication List:
Allergies
Allergy/AdvReac Type Severity Reaction Status Date / Time
Penicillins Allergy Itching Verified 07/13/24 08:35
Home Medications
cholecalciferol (vitamin D3) 10 mcg (400 unit) tablet (Vitamin D3) 800 units PO DAILY Supplement 10/26/16
acetaminophen 500 mg tablet (Tylenol Extra Strength) 1,000 mg PO Q6HPRN PRN mild pain 10/30/20
polyvinyl alcohol-povidone (PF) 1.4 %-0.6 % eye drops in a dropperette (Refresh Classic (PF)) 1 drops BOTH EYES QIDPRN PRN dry eyes 10/30/20
rivaroxaban 20 mg tablet (Xarelto) 20 mg PO QPM Arrhythmia #30 tabs 10/30/20
sotalol 120 mg tablet 120 mg PO BID Arrhythmia 10/30/20
Metamucil 1 tbsp PO DAILY Constipation 03/25/23
Vitamin C 1 tab PO DAILY Supplement 03/25/23
alendronate 70 mg tablet (Fosamax) 70 mg PO WEEKLY osteoporosis 03/25/23
atorvastatin 80 mg tablet 80 mg PO DAILY High Cholesterol 03/25/23
calcium 1 tab PO DAILY Supplement 03/25/23
citalopram 20 mg tablet 30 mg PO HS Depression 03/25/23
fluticasone fur. 100 mcg-umeclid 62.5 mcg-vilant 25 mcg inhalat.powder (Trelegy Ellipta) 1 inh inhalation R DAILY Lung/Breathing Issues 03/25/23
peg 400-propylene glycol 0.4 %-0.3 % eye drops (Systane (propylene glycol)) 1 drp ophthalmic (eye) DAILY PRN dry eye 04/06/23
empagliflozin 10 mg tablet (Jardiance) 10 mg PO DAILY 07/13/24
furosemide 40 mg tablet (Lasix) 40 mg PO BID 07/13/24
guaifenesin 600 mg tablet, extended release 12 hr (Mucinex) 600 mg PO BID 07/13/24
potassium chloride 20 mEq tablet,extended release(part/cryst) 20 meq PO DAILY 07/13/24
Review of Systems
-
History Source: Patient
Constitutional: Reports No Symptoms
EENT: Reports No Symptoms
Respiratory: Reports No Symptoms
Cardiac: Reports Chest Pain, Diaphoresis and Palpitations
Abdomen/GI: Reports No Symptoms
: Reports No Symptoms
Musculoskeletal: Reports No Symptoms
Skin: Reports No Symptoms
Neurological: Reports No Symptoms
Endocrine: Reports No Symptoms
Hematologic/Lymphatic: Reports No Symptoms
Psych: Reports No Symptoms
Physical Exam
Vital Signs
Vital Signs
Temp Pulse Resp BP Pulse Ox
97.8 F 102 22 148/95 95
08/23/25 00:58 08/23/25 04:04 08/23/25 04:04 08/23/25 04:04 08/23/25 03:45
Physical Exam
General: No Apparent Distress and Comfortable
HEENT: NormoCephalic, Anicteric, Moist mucous membranes, Atraumatic, No Ptosis and Oxygen (via NC 3L)
Respiratory: Crackles (mild; bilateral bases) and Non Labored Respirations
Cardiac: S1/S2 and Regular Rhythm
Breast: Deferred by me
GI: Soft, Non Tender and Distended
Rectal: Deferred by Provider
Genito-urinary: No costovertebral tender
Musculoskeletal: No Clubbing, No Cyanosis and No Edema
Skin: Warm, Dry and IV/Catheter Site
Neuro: Awake, Alert, Oriented and No Motor Deficits
Hematologic/Lymphatic: No Lymphadenopathy
Psych: Calm and Intact Judgment/Insight
Laboratory Results
-
08/23/25 01:04
Laboratory Results
Total Bilirubin Cancelled 08/23/25 01:04
AST Cancelled 08/23/25 01:04
ALT Cancelled 08/23/25 01:04
Alkaline Phosphatase Cancelled 08/23/25 01:04
Troponin I 0.016 ng/ml 08/23/25 01:04
Data Reviewed
-
Diagnostic Radiology: Image Personally Visualized and interpreted
Medical Tests (Nuc Med, Echo, EKG etc): Image Personally Visualized and interpreted and Report Reviewed by me
Lab Data: Labs Reviewed by me
Old Records: Reviewed
Impression/Plan
-
IMPRESSION:
85-year-old female with past medical history significant for atrial fibrillation on anticoagulation and status post pacemaker placement, diastolic CHF on Lasix, CAD status post 1 stent, peripheral arterial disease status post carotid stenting as
well as lower extremity femoral stent placement, pulmonary fibrosis on 4 L home O2, pulmonary hypertension presents to the emergency department with episode of palpitations diaphoresis and chest pain which are now resolved. Evaluation of pacemaker
device shows an episode of atrial fibrillation today but is unclear the exact timing to correlate with a symptom. She is otherwise mostly atrially paced. Troponin is 0.016 and a BNP is 1300 similar to prior. She is found to have hypocalcemia to
6.8.
PLAN:
Palpitations -palpitations with associated chest discomfort possibly from ischemic episode, however troponin is negative. She is currently chest pain-free and is atrially paced with the normal rates.
� Admit to telemetry observation
� Trend troponins
� Check echocardiogram in the morning
� Continue patient's metoprolol for rate control
� Continue sotalol
� For atrial fibrillation will continue Xarelto
� Continue statin
Hypocalcemia�calcium 6.8, ionized calcium is 1.02. Patient is supposed to be on supplemental calcium which she has stopped taking. Phosphorus and magnesium levels are pending
� Will start with 2 g of IV calcium gluconate
� Follow-up with oral calcium and vitamin D supplementation
� Check PTH and vitamin D levels
� Follow-up phosphorus levels
� Monitor on telemetry
Hypoxia�chronic hypoxic respiratory failure on 4 L of O2
� Continue patient's 4 L home O2 to maintain sats greater than 88%
� Continue patient's Trelegy
� Continue as needed albuterol
CHF - HD stable. No volume overload
- continue lasix 80mg po bid
- keep K, Mag > 4,2
DVT PPX - on Xarelto
Code status - Full Code
[2025-08-23 04:47] LABS: Lipase 117 U/L (23-300); Magnesium 2.7 mg/dl (1.6-2.3); Potassium 4.0 mmol/L (3.5-5.1)
[2025-08-23] MEDS: CALCIUM GLUCONATE 280 MG IV (06:28)
--- NOTE | 2025-08-23 08:00 | CON.CAR ---
Addendum entered and electronically signed by Uvaldo Barrera MD 08/23/25 09:38:
I saw and examined the patient.
The Underwater Roboticist's note was reviewed and I agree with the note.
Comment: Briefly, 85-year-old woman past medical history of heart failure preserved ejection fraction, paroxysmal atrial fibrillation, pacemaker for sick sinus syndrome, CAD with prior PCI and chronic hypoxic respiratory failure on home O2 who
presents with palpitations and chest discomfort.
Pacemaker interrogated and patient was found to have any episode of atrial fibrillation that correlates with the timing of her symptoms and is now back in sinus rhythm
Would continue sotalol to maintain sinus rhythm
Xarelto for anticoagulation
Troponin borderline elevated 0.04
Suspect nonischemic myocardial injury troponin elevation in the setting of rapid atrial fibrillation
Would favor conservative management given her age and comorbidities
For completeness we will check transthoracic echocardiogram
If this is unremarkable I think she can be discharged on her home cardiac meds
Original Note:
Consultation
Consultation Request
Date/Time Consultation Requested: 08/23/2025
Date/Time Consultation Performed: 08/23/2025
Requesting Provider: Dr. Cortes
Performing Provider: Mary Wiley PA-C for Dr. Barrera
Reason for Consultation: Chest pain, Afib
Medical History
-
History of Present Illness:
HPI: Asia is an 85 year old female with PMH of chronic HFpEF, paroxysmal atrial fibrillation on sotalol, SSS s/p PPM, HTN, HLD, pulmonary HTN, CAD w/ prior RCA PCI, PAD s/p SFA stenting, R carotid stenting, CRAO, and benign tremor who presented to
[facility] ER after episode of chest pain and palpitations which started at approximately 1100 PM. She states symptoms lasted for about an hour prior to resolving. Pain was across her entire anterior chest with possible radiation into her jaw. Did not
notice any associated SOB or dizziness, but did have palpitations. Weight has been stable and she has no edema. On arrival to ER, device check revealed episodes of atrial fibrillation 08/23, all short lived. Troponin within normal range but
detectable at 0.018. She was noted to be hypocalcemic and was admitted for further evaluation. Receiving IV calcium gluconate. Remains pain free at this time. No palpitations currently. Remains on 4L NC which is her baseline.
PMH:
Chronic HFpEF
Paroxysmal Atrial Fibrillation
Chronic Sotalol therapy
Chronic Xarelto OAC
SSS
s/p Medtronic DC PPM
HTN
HLD
Pulmonary hypertension likely mixed with component of volume overload and lung disease (COPD and possible pulm fibrosis)
CAD
s/p RCA PCI 2006
PAD
s/p left SFA stent 02/2012 then restenosis and recurrent stent 06/2013 then restenosis and recurrent stent 10/26/16
s/p Right carotid artery stenting
Central retinal artery occlusion of the right eye and subsequent blindness
Benign head tremor, severe
Orthostatic hypotension.
h/o TCC of bladder
Past Medical History
Past Medical History: Other (In HPI)
Past Surgical History: Cardiac (RCA PCI 2006, PPM, ), Gynecological (hysterectomy) and Other (SFA stenting, TCAR)
Social History
Tobacco: Former Smoker
Alcohol: Daily
Drug: None
Personal:
Employment: Retired
Family History
Family History: Reviewed & Not Pertinent
Allergies / Home Medications
Allergy/AdvReac Type Severity Reaction Status Date / Time
Penicillins Allergy Itching Verified 07/13/24 08:35
�Medication �Instructions �Recorded �Confirmed �Type
cholecalciferol (vitamin D3) 10 800 units PO DAILY Supplement 10/26/16 07/13/24 History
mcg (400 unit) tablet (Vitamin D3)
acetaminophen 500 mg tablet 1,000 mg PO Q6HPRN PRN mild pain 10/30/20 07/13/24 History
(Tylenol Extra Strength)
polyvinyl alcohol-povidone (PF) 1 drops BOTH EYES QIDPRN PRN dry 10/30/20 07/13/24 History
1.4 %-0.6 % eye drops in a eyes
dropperette (Refresh Classic (PF))
rivaroxaban 20 mg tablet (Xarelto) 20 mg PO QPM Arrhythmia #30 tabs 10/30/20 07/13/24 Rx
sotalol 120 mg tablet 120 mg PO BID Arrhythmia 10/30/20 07/13/24 History
Metamucil 1 tbsp PO DAILY Constipation 03/25/23 07/13/24 History
Vitamin C 1 tab PO DAILY Supplement 03/25/23 07/13/24 History
alendronate 70 mg tablet (Fosamax) 70 mg PO WEEKLY osteoporosis 03/25/23 07/13/24 History
atorvastatin 80 mg tablet 80 mg PO DAILY High Cholesterol 03/25/23 07/13/24 History
calcium 1 tab PO DAILY Supplement 03/25/23 07/13/24 History
citalopram 20 mg tablet 30 mg PO HS Depression 03/25/23 07/13/24 History
fluticasone fur. 100 mcg-umeclid 1 inh inhalation R DAILY 03/25/23 07/13/24 History
62.5 mcg-vilant 25 mcg Lung/Breathing Issues
inhalat.powder (Trelegy Ellipta)
peg 400-propylene glycol 0.4 %-0.3 1 drp ophthalmic (eye) DAILY PRN 04/06/23 07/13/24 History
% eye drops (Systane (propylene dry eye
glycol))
empagliflozin 10 mg tablet 10 mg PO DAILY heart failure 07/13/24 07/13/24 History
(Jardiance)
guaifenesin 600 mg tablet, 600 mg PO BID cough/congestion 07/13/24 07/13/24 History
extended release 12 hr (Mucinex)
potassium chloride 20 mEq 20 meq PO DAILY Electrolyte 07/13/24 07/13/24 History
tablet,extended release(part/cryst) Repletion
furosemide 80 mg tablet 80 mg PO BID@0800,1600 Heart 07/17/24 Rx
Failure #60 tabs
Review of Systems
-
History Source: Patient
All other systems: Negative unless noted
Physical Exam
Vital Signs
Temp Pulse Resp BP Pulse Ox
97.8 F 79 13 149/69 93
08/23/25 00:58 08/23/25 05:45 08/23/25 05:00 08/23/25 05:00 08/23/25 05:45
Lab Results
Troponin I 0.016 ng/ml 08/23/25 01:04
Hvm-Z-Qficqmxvljn Pept 1300 pg/ml 08/23/25 01:04
Physical Exam
General: Well Developed, Well Nourished and No Apparent Distress
HEENT: Normocephalic, Anicteric and Moist Mucous Membranes
Respiratory: Crackles and Non Labored Respirations
Cardiac: S1/S2 and Regular Rhythm
Musculoskeletal: No Clubbing, No Cyanosis and No Edema
Skin: Warm and Dry
Neuro: AO x 3 and Nonfocal/Grossly Intact
Psych: Calm
Impression / Plan
-
PCP: Dr. Carmen
Emergency Room Nurse: Dr. DENIS Encinas
Impression:
Presented with chest pain, palpitations
Hypocalcemia
Chronic HFpEF
Paroxysmal Atrial Fibrillation
Chronic Sotalol therapy
Chronic Xarelto OAC
SSS
s/p Medtronic DC PPM
HTN
HLD
Pulmonary hypertension likely mixed with component of volume overload and lung disease (COPD and possible pulm fibrosis)
CAD
s/p RCA PCI 2006
PAD
s/p left SFA stent 02/2012 then restenosis and recurrent stent 06/2013 then restenosis and recurrent stent 10/26/16
s/p Right carotid artery stenting
Central retinal artery occlusion of the right eye and subsequent blindness
Benign head tremor, severe
Orthostatic hypotension.
h/o TCC of bladder
RHC 07/13/2024: Elevated right and left ventricular filling pressures with mean PAP 50, PCWP 31, PVR 5.9 Wood Units, cardiac Output 3.4 L/min with Cardiac Index 2.0 L/m2
Echo 07/19/2018: EF 60-65%
Echo 07/04/2024: EF 60-65%, no WMA, stage II diastolic dysfunction. Normal RV size and function, mild MR, mild to mod TR with PAP 41 mmHg
Echo 08/23/2025: Study pending
Plan:
-Presented after episode of chest pain and palpitations. Noted to have episodes of atrial fibrillation on 08/23 by device check.
-Troponin within normal range but detectable at 0.018. Repeat pending this AM.
-Chest pain free currently, but notes feeling 'sore'.
-EKG A-paced with no acute changes noted.
-Check echo. Prior echo in 06/2024 with preserved EF, mild MR as noted above.
-Hypocalcemia noted. Repletion per primary service.
-K 4.0, mag 2.7.
-Continue sotalol 120mg BID for paroxysmal atrial fibrillation. QTc stable at 483 ms.
-Continue Xarelto for anticoagulation.
-Appears euvolemic. Weight stable, no edema. On 4L NC which is her baseline.
-Continue PO lasix 80mg BID.
-Continue Jardiance 10mg daily.
-Continue lipitor 80mg daily.
-Follow up arranged w/ cardiology. If repeat troponin and echo stable, ok for discharge from cardiac standpoint. May consider OP stress testing.
HPI: Asia is an 85 year old female with PMH of chronic HFpEF, paroxysmal atrial fibrillation on sotalol, SSS s/p PPM, HTN, HLD, pulmonary HTN, CAD w/ prior RCA PCI, PAD s/p SFA stenting, R carotid stenting, CRAO, and benign tremor who presented to
[facility] ER after episode of chest pain and palpitations which started at approximately 1100 PM. She states symptoms lasted for about an hour prior to resolving. Pain was across her entire anterior chest with possible radiation into her jaw. Did not
notice any associated SOB or dizziness, but did have palpitations. Weight has been stable and she has no edema. On arrival to ER, device check revealed episodes of atrial fibrillation 08/23, all short lived. Troponin within normal range but
detectable at 0.018. She was noted to be hypocalcemic and was admitted for further evaluation. Receiving IV calcium gluconate. Remains pain free at this time. No palpitations currently. Remains on 4L NC which is her baseline.
Data Reviewed
-
EKG: Tracing Personally Visualized and interpreted
Radiology: Report Reviewed by me
Labs: Labs Reviewed by me
Old Records: Reviewed
[2025-08-23] MEDS: REFRESH EYE DROPS (PF) 1 DROPS OPHTH (08:06)
[2025-08-23] MEDS: VITAMIN D3 (cholecalciferol) 20 MCG PO (08:06)
[2025-08-23] MEDS: KCL 20 MEQ PO (08:06)
[2025-08-23] MEDS: OSCAL CAL 500 1000 MG PO (08:07)
[2025-08-23] MEDS: BETAPACE 120 MG PO (08:12)
[2025-08-23 08:32] LABS: Hematocrit 43.2 % (37.0-47.0); Hemoglobin 13.8 g/dL (12.0-16.0); Mean Corp Hgb Conc. 31.9 g/dL (33.0-37.0); Mean Corpuscular Volume 98.6 fL (81.0-99.0); Platelet Count 267 10^3/uL (130-400); Red Cell Dist. Width 15.4 % (11.5-14.5)
[2025-08-23] MEDS: LASIX 80 MG PO (08:35)
[2025-08-23] MEDS: LIPITOR 80 MG PO (08:35)
[2025-08-23 08:51] LABS: Troponin I 0.040 ng/ml
[2025-08-23] MEDS: SPIRIVA RESPIMAT 2.5 MCG 2 PUFF INH (08:57)
[2025-08-23] MEDS: SYMBICORT 80/4.5 MCG INHALER 2 PUFF INH (08:58)
[2025-08-23 09:17] LABS: Albumin 4.3 g/dl (3.5-5.0); Blood Urea Nitrogen 37 mg/dl (7-17); Calcium 9.3 mg/dl (8.4-10.2); Carbon Dioxide 32 mmol/L (22-30); Chloride 102 mmol/L (98-107); Glucose 78 mg/dl (70-99); Potassium 4.1 mmol/L (3.5-5.1); Sodium 142 mmol/L (135-145); eGFR > 60.00
[2025-08-23 09:28] LABS: Vitamin D, 25-OH*** 36.9 ng/mL (30-80)
--- NOTE | 2025-08-23 09:32 | CM ---
Chart reviewed and spoke with patient at ED bedside
CARR reviewed with patient
Lives in [facility] with Edwin
Independent with getting dressed, bathing and grooming per pt
Needs RW for ambulation
DME Scooter, rollator and 4 LO2 at baseline ; [employer]
Per pt there is no local family in the area
PCP Dr. Carmen
[employer] DENIS Encinas
[facility]
hx of VN at [facility]
phone [phone]
fax number [phone]
DCP is to go home with VN per pt
Pt would NOT want to go to SNF
Will need transportation at [place]
CM will continue to follow up for dcp needs
[2025-08-23] MEDS: ALDACTONE 12.5 MG PO (11:45)
[2025-08-23] MEDS: FARXIGA 10 MG PO (11:45)
[2025-08-23 12:27] LABS: Troponin I 0.039 ng/ml
== END 2025-08-23 15:37 | disposition home or self-care (01) ==
LOC: ED 05:52
PROVIDERS: Physician Assistant; ADMITTING PHYSICIAN Internal Medicine; ATTENDING PHYSICIAN Internal Medicine; EMERGENCY PHYSICIAN Student in an Organized Health Care Education/Training Program; FAMILY PHYSICIAN Surgery Vascular Surgery; OTHER PHYSICIAN Internal Medicine Cardiovascular Disease
DX: E83.51 Hypocalcemia (principal); R00.2 Palpitations; R07.89 Other chest pain; I48.0 Paroxysmal atrial fibrillation; I73.9 Peripheral vascular disease, unspecified; I50.32 Chronic diastolic (congestive) heart failure; J84.10 Pulmonary fibrosis, unspecified; J44.9 Chronic obstructive pulmonary disease, unspecified; I11.0 Hypertensive heart disease with heart failure; M81.0 Age-related osteoporosis without current pathological fracture; I25.10 Atherosclerotic heart disease of native coronary artery without angina pectoris; J96.11 Chronic respiratory failure with hypoxia; I27.20 Pulmonary hypertension, unspecified; E78.5 Hyperlipidemia, unspecified; Z79.01 Long term (current) use of anticoagulants; Z79.899 Other long term (current) drug therapy; Z87.891 Personal history of nicotine dependence; Z91.148 Patient's other noncompliance with medication regimen for other reason; Z95.0 Presence of cardiac pacemaker; Z99.81 Dependence on supplemental oxygen; G25.0 Essential tremor; H54.61 Unqualified visual loss, right eye, normal vision left eye; Z82.49 Family history of ischemic heart disease and other diseases of the circulatory system; Z95.5 Presence of coronary angioplasty implant and graft
CPT/HCPCS: 71046; 80048; 82040; 82306; 82330; 82652; 83690; 83735; 83880; 83970; 84100; 84132; 84484; 85025; 85027; 93005; 93306; 94640; 96360; 96361; 99285; G0378

== ENCOUNTER → 2025-08-26 12:56 | Outpatient (REF) | payer OTHER, SELFPAY | LOC: HWRAD 12:56 | PROVIDERS: ATTENDING PHYSICIAN Nurse Practitioner Adult Health; FAMILY PHYSICIAN Family Medicine | DX: R06.02 Shortness of breath (principal); J84.9 Interstitial pulmonary disease, unspecified; R93.89 Abnormal findings on diagnostic imaging of other specified body structures | CPT/HCPCS: 71250 ==

== ENCOUNTER 2025-08-28 13:14 | Inpatient (IN) | payer OTHER, SELFPAY ==
[2025-08-28] VITALS (10 sets, daily range): BP systolic 93–165; BP diastolic 53–89; BMI 22.4; BMI 22.5
--- NOTE | 2025-08-28 10:18 | EDRN ---
Dr. Hernandez in room w/pt at this time.
--- NOTE | 2025-08-28 10:22 | ED.GENMED ---
History of Present Illness
General
Chief Complaint: Breathing Problem
Source: patient
Exam Limitations: none
Time Seen by Provider: 08/28/25 10:17
History of Present Illness
History of Present Illness:
See MDM
Past History
Past History
ED Past Medical History: Other (bladder cancer), Other (AFIB) and Other (PAF status post pacemaker coronary disease status post stent peripheral artery disease status post femoral stent, COPD, depression)
ED Past Surgical History: Gynecological (Hysterectomy)
Patient has exhibited threatening behavior?: No
PSI?: No
Social History
Tobacco: Former smoker
Alcohol: Occasional
Drug: None
Family History
Family History: CAD
Phy Exam
Physical Exam
Physical Exam:
See MDM
Scores
Heart Failure Risk
Heart Failure Risk Score: Not Applicable
Course
Orders/Labs/Results
Orders:
Orders
08/28/25 10:20
Electrocardiogram (*1) Urgent
Reason for Study: Shortness of Breath
EKG- Treatment ONCE
Albuterol Sulfate [Ventolin Nebules] 7.5 mg INH R NOW STA
Dexamethasone Sod Phosphate [Decadron] 10 mg IV NOW STA
Ipratropium Nebs [Atrovent Nebules] 1 mg INH R NOW STA
CR Chest Portable - 1 View Urgent
Comment:
Reason For Exam: SOB, hypoxic
Reason Study Needs to be Portable: Patient Unstable
08/28/25 10:33
COVID-19 Antigen Urgent
Source: Nasal Swab
Influenza A+B Rapid Molecular Urgent
TEMO Source: Nasal Swab
Specimen Description:
08/28/25 10:41
Complete Blood Count/With Diff Urgent
Comprehensive Metabolic Panel Urgent
NT-proBNP Urgent
Troponin I Urgent
08/28/25 11:59
Oseltamivir Phosphate [Tamiflu] 75 mg PO NOW STA
Abnormal Lab Results
08/28/25
10:41
WBC 13.0 H 10^3/uL
(4.8-10.8)
RBC 3.99 L 10^6/uL
(4.20-5.40)
MCHC 32.0 L g/dL
(33.0-37.0)
RDW 15.2 H %
(11.5-14.5)
MPV 10.7 H fL
(7.4-10.4)
Abs Immat Gran (auto) 0.1 H 10^3/uL
(0-0.05)
Absolute Neuts (auto) 10.0 H 10^3/uL
(1.4-6.5)
Absolute Lymphs (auto) 0.7 L 10^3/uL
(1.2-3.4)
Absolute Monos (auto) 2.0 H 10^3/uL
(0.1-0.6)
Immature Gran % 0.6 H %
(0-0.5)
Neutrophils % 76.7 H %
(42.2-75.2)
Lymphocytes % 5.7 L %
(20.5-51.1)
Monocytes % 15.6 H %
(1.7-9.3)
Carbon Dioxide 34 H mmol/L
(22-30)
BUN 25 H mg/dl
(7-17)
Glucose 102 H mg/dl
(70-99)
08/28/25 10:41
08/28/25 10:41
Vital Signs
Initial and Last Documented VS:
Initial Vital Signs
Pulse Ox
88
08/28/25 10:13
Last Documented Vital Signs
Temp Pulse Resp BP Pulse Ox
99.4 F 79 24 142/89 99
08/28/25 10:14 08/28/25 11:00 08/28/25 11:00 08/28/25 11:00 08/28/25 11:00
MDM/Problems Addressed
Differential Diagnosis Includes:
Note:
CHIEF COMPLAINT(S)
Increased shortness of breath.
HISTORY OF PRESENT ILLNESS
The patient is an 85-year-old female with a history of chronic obstructive pulmonary disease (COPD) who presents with increased shortness of breath. Typically, the patient uses four liters of oxygen but is currently requiring six liters. The patient
reports a persistent cough, described as 'junky.' The subjective feeling is reminiscent of past COPD exacerbations. The patient denies any recent history of pneumonia. No mention of chest pain or fever. Patient was brought back to the emergency
department immediately and placed on 6 L nasal cannula. The patient has diminished breath sounds throughout. Will start an hour-long nebulizer treatment and provide IV steroid
CHRONIC MEDICAL CONDITIONS SIGNIFICANTLY AFFECTING CARE
Chronic conditions affecting care: COPD.
PHYSICAL EXAM
General: Weak and frail
Skin: Warm, dry.
Head: Normocephalic, atraumatic
Neck: Appears supple, trachea midline.
Eyes, Ears, Nose, Mouth, and Throat: Moist mucous membranes
Cardiovascular: No signs of cyanosis. Regular rate
Respiratory: Respirations are non-labored.. Poor air exchange throughout
Abdomen: Non-distended
Musculoskeletal: No deformities
Neurological: No focal neurological deficit observed.
Psychiatric: Cooperative, appropriate mood and affect.
PLAN
- Administer breathing treatments.
- Obtain a chest x-ray to evaluate for potential pneumonia.
- Test for influenza and COVID-19.
- Possible admission for overnight observation depending on initial treatment response.
DIFFERENTIAL DIAGNOSIS
The Differential Diagnosis includes, in no particular order and is not limited to:
- COPD exacerbation
- Pneumonia
- Heart failure exacerbation
- Pulmonary embolism
- Acute bronchitis
- Influenza
- COVID-19
- Asthma exacerbation
- Interstitial lung disease
- Tuberculosis
SUMMARY OF ENCOUNTER
The patient was seen in the emergency department for evaluation of increased shortness of breath, reminiscent of previous COPD exacerbations. Management included initiating breathing treatments and ordering a chest x-ray to rule out pneumonia.
Testing was also ordered for influenza and COVID-19 to ensure comprehensive evaluation. An overnight admission may be necessary depending on the patients response to initial treatments.
DISPOSITION
Possibly admit for observation.
MEDICAL DECISION MAKING
- Complexity of Data Reviewed: Chronic conditions affecting care: COPD.
- Data:
- Category 1: The plan to conduct the chest x-ray and respiratory infection testing.
- Category 3: Consideration of overnight admission for observation if initial treatments warrant it.
EKG
My independent EKG interpretation is:
- Time of EKG: [Not provided]
- Rhythm: Pace rhythm
- Heart rate: 77 beats per minute
- [place]: Normal
- ST segment: No elevation observed
- Arrhythmias: PVCs (Premature Ventricular Contractions) noted
SUMMARY OF ENCOUNTER
The patient, an 85-year-old female with a history of COPD, presented to the emergency department with increased shortness of breath that was notably severe this morning. She required an increase in her supplemental oxygen from her usual baseline.
Management involved administering an hour-long nebulizer treatment and intravenous corticosteroids due to her COPD history. Testing revealed that the patient was influenza positive. Given her comorbid conditions, we administered a dose of
oseltamivir (Tamiflu).
DISPOSITION
Admit.
ASSESSMENT
The patients presentation of increased shortness of breath is consistent with a COPD exacerbation potentiated by an influenza infection.
EMERGENCY TREATMENTS ADMINISTERED
Nebulizer treatment and intravenous corticosteroids were administered. A dose of oseltamivir (Tamiflu) was also given.
PLAN
The plan includes admitting the patient for further observation and management of her COPD exacerbation secondary to influenza infection. Continue supportive care with oxygen therapy and consider further administration of antiviral medications for
influenza. Monitor respiratory status closely.
MEDICATION RECONCILIATION
A dose of oseltamivir (Tamiflu) was administered for influenza.
MEDICAL DECISION MAKING
- Number and Complexity of Problems Addressed: Chronic conditions affecting care: COPD. Differential diagnosis includes COPD exacerbation and influenza.
- Data:
- Category 1: Testing confirmed influenza positive.
- Risk: Admission was required due to the risk associated with COPD exacerbation complicated by influenza.
DIAGNOSIS
- COPD exacerbation, ICD-10: J44.1
- Influenza, ICD-10: J10.1
*Pulse Oximetry
SaO2: 88
Nasal Cannula flow liters per minute: 6
Patient hypoxic: yes
*Critical Care Note
Total Time (30-74mins, 75-104mins- exclusive of procedures): 33 min
comment:
The high probability of a clinically significant, sudden or life threatening deterioration of the cardiopulmonary system(s) required my full and direct attention, intervention and personal management. The aggregate critical care time was 33 minutes.
This time is in addition to time spent performing reported procedures but includes the following:
[x] Data Review and interpretation
[x] Patient assessment and monitoring of vital signs
[x] Documentation
[x] Medication orders and management
ED Attending Note
-
Portions of this chart may have been created with voice recognition software.� Occasional wrong word or��sound alike� substitutions may have occurred due to the inherent limitations of voice recognition software.
Discharge Plan
Departure
Patient Disposition: Admit
Date of Disposition: 08/28/25
Time of Disposition: 12:12
Admit to: Med/Surg
Presentation/result/management discussed w/ accepting MD/DO: Hospitalist
Discharge Problem:
Influenza, Acute exacerbation of chronic obstructive pulmonary disease
Prescriptions:
No Action
cholecalciferol (vitamin D3) [Vitamin D3] 400 UNITS tablet
800 units PO DAILY
sotalol 120 MG tablet
120 mg PO BID
atorvastatin 80 mg Tablet
80 mg PO DAILY
alendronate [Fosamax] 70 mg Tablet
70 mg PO COLON
citalopram 20 mg Tablet
30 mg PO DAILY
calcium carbonate 500 mg calcium (1,250 mg) Tablet
500 mg PO DAILY Qty: 0
ascorbic acid (vitamin C) [Vitamin C] 500 mg Tablet
500 mg PO DAILY Qty: 0
Trelegy Ellipta 100-62.5-25 mcg Blister With Device
1 inh INHALATION R DAILY
potassium chloride 20 mEq Tablet,Er Particles/Crystals
20 meq PO DAILY
Jardiance 10 mg Tablet
10 mg PO DAILY
spironolactone 25 mg Tablet
12.5 mg PO DAILY
furosemide 80 mg tablet
80 mg PO BID
Xarelto 20 MG tablet
20 mg PO QPM
guaifenesin [Mucinex] 600 mg Tablet Extended Release 12hr
1,200 mg PO BID
loratadine 10 mg Tablet
10 mg PO DAILY
Referrals:
Vin Carmen Jr. DO [Family Provider, Internal Medicine]
Interventions
Interventions:
*General Assessment Last Done: 08/28/25 10:35
*Neglect/Abuse Screening Last Done: 08/28/25 10:35
*ED COVID-19 Vaccine History Last Done: 08/28/25 10:35
*ED Influenza Vaccine History Last Done: 08/28/25 10:35
[facility] Fall Risk Assessment Tool Last Done: 08/28/25 10:35
*Risk Screen - Suicide (C-SSRS) Last Done: 08/28/25 10:14
ED- Cardiac Assessment Last Done: 08/28/25 10:35
ED- Pulmonary Assessment Last Done: 08/28/25 10:35
Discharge Date and Time
Print Language: PORTUGUESE
[2025-08-28] MEDS: VENTOLIN NEBULES 7.5 MG INH (10:31)
[2025-08-28] MEDS: ATROVENT NEBULES 1 MG INH (10:31)
[2025-08-28] MEDS: DECADRON 10 MG IV (10:41)
--- NOTE | 2025-08-28 10:41 | PHANOTE ---
MED REC NOTE - UNABLE TO CONFIRM WITH PT. USED PHARMACY AND ECW TO CONFIRM. METOLAZONE DOSAGE UNKNOWN WELL DAY OF WEEK FOR FOSAMAX. LEFT UNKNOWN FOR THAT REASON - RAMBO
[2025-08-28 10:53] LABS: Hematocrit 38.4 % (37.0-47.0); Hemoglobin 12.3 g/dL (12.0-16.0); Mean Corp Hgb Conc. 32.0 g/dL (33.0-37.0); Mean Corpuscular Volume 96.2 fL (81.0-99.0); Nucleated Red Blood Cells % 0 %; Platelet Count 183 10^3/uL (130-400); Red Cell Dist. Width 15.2 % (11.5-14.5)
[2025-08-28 11:01] LABS: COVID-19 Antigen Negative (Negative)
--- NOTE | 2025-08-28 11:12 | EDRN ---
Medtronic PM interrogated at this time.
--- NOTE | 2025-08-28 11:13 | EDRN ---
Portable CXR done at thistime.
[2025-08-28 11:15] LABS: ALT (SGPT) 19 U/L (0-35); AST (SGOT) 31 U/L (14-36); Albumin 4.0 g/dl (3.5-5.0); Alkaline Phosphatase 71 U/L (38-126); Blood Urea Nitrogen 25 mg/dl (7-17); Calcium 8.7 mg/dl (8.4-10.2); Carbon Dioxide 34 mmol/L (22-30); Chloride 102 mmol/L (98-107); Estimated Creatinine Clearance 40 ml/min; Glucose 102 mg/dl (70-99); Potassium 4.0 mmol/L (3.5-5.1); Sodium 141 mmol/L (135-145); Total Protein 7.6 g/dl (6.3-8.2); eGFR > 60.00
[2025-08-28 11:21] LABS: Troponin I 0.023 ng/ml
--- NOTE | 2025-08-28 12:13 | W.PN.UPDATE ---
Update Note
Progress Note Update
This note serves as an addendum to the H&P by reference library assistant DAISY�
Celeste [place]
HPI
85F
PHX: COPD, bladder cancer, A Fib, status post pacemaker, CAD and stent, PAD post femoral stent, depression
- pw increased shortness of breath
- home 4 L O2 s currently requiring six liters.
- persistent cough, described as 'junky.'
- denies any recent history of pneumonia.
- No CP
- 6 L nasal cannula at ER
- tart an hour-long nebulizer treatment and provide IV steroid
Relevant VS
Vital Signs
Temp Pulse Resp BP Pulse Ox
99.4 F 81 26 134/66 97
08/28/25 10:14 08/28/25 12:16 08/28/25 12:16 08/28/25 12:00 08/28/25 12:16
08/28/25
10:13 08/28/25
10:14 08/28/25
10:35
SaO2 88 88 96
Nasal Cannula flow liters per minute 6 6 6
PE
Gen: coarse rhythmic involuntary tremors of head
HEENT: anicteric
Neck: supple
Lungs: diffuse I/E wheeze
Cor
Abdomen:�
CAMPAIGN ASSOCIATE:
MS:
Psych:
Relevant Data
08/23/25 08/28/25
08:04 10:41
WBC 13.0 H
Hgb 12.3
Plt Count 183 D
Carbon Dioxide 32 H 34 H
BUN 25 H
Creatinine 0.9
eGFR > 60.00
Troponin I 0.023
Ekn-M-Odieudubpbk Pept 2600
08/23/25
01:04
Yfu-V-Fhzicmnnzds Pept 1300
NEG Covid
POS Flu A
EKG
Atrial-paced rhythm WITH PREMATURE SUPRAVENTRICULAR COMPLEXES
RIGHT BUNDLE BRANCH BLOCK
ABNORMAL ECG
WHEN COMPARED WITH ECG OF 23-Aug-2025 09:17,
PREMATURE SUPRAVENTRICULAR COMPLEXES ARE NOW PRESENT
ASSESSMENT & PLAN
Pending Rx reconciliation
Acute viral illness due to Flus
Associated COPD flare
Acute on chr hypoxic RF with increased O2 needs
Chronic hypoxemic respiratory failure - On 4 L which is baseline
- Agree with Tamiflu
- IV Decadron 4mg q8h
- DuoNeb qid and PRN
- O2 to keep POx 89 - 93 is OK to keep hypoxic drive
- Baseline HCO3 32- 34 ABG 9 (not VBG ) if any AMS
- Pul consult
Chr HFpEF, EF 60 to 65%, NYHA class II-IV
- c/w BUNK ASSEMBLER PO lasix and Spironolactone
- c/w BUNK ASSEMBLER Farxiga
- daily weights
Pulmonary hypertension who 2, 3 and 5
- outpatient pulmonary hypertension clinic follow-up
P A-fib and sick sinus syndrome s/p pacemaker
-A paced rhythm
- on Xarelto
- on sotalol
DVT Px: Xarelto BUNK ASSEMBLER
Full Code:
IP TLM
--- NOTE | 2025-08-28 12:15 | HPS.HSE ---
Family Physician
-
Family Physician: Vin Carmen Jr.
Chief Complaint
-
Shortness breath, cough, sore throat
History of Present Illness
85 year old female chronic 02 dependent 4 liters with copd complaining of persistent cough with shortness of breath and sore throat.. She is requiring 6 liters nc oxygena the current time. She denies fever ,chills, h/a, cp, palpitations, abd pain ,
nausea, vomiting, diarrhea, or urinary symptoms. She has PMH of chronic hypoxic resp insuff 2/2 COPD,Ex smoker, pulmonary HTN, Afib, Pacemaker, RBBB, HTN, HLD, CAD/Rca stent, left SFA stent , CVa, Right carotid CEA, right wrist pseudoaneurysm, Mohs
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 In the ER she required 1 hour long neb and was FLU A positive. She was recently in the hospital on 08/23/2025 complaining of
lightheadedness with palpitations had pacemaker interrogated with no episodes of A-fib she was stable and discharged home that day. She was not tested at that time for flu A
Medical History
Past Medical History
Past Medical History: Reports Arrhythmia (atrial fibrillation), CAD, Cancer (bladder; vocal cord), CHF (cHFpEF), COPD and Other (PAD; tobacco use disorder)
Past Surgical History: Reports Other (femoral and coronary stents)
Social History
Tobacco: Former Smoker
Alcohol: Daily (1 drink of scotch every night)
Drug: None
Personal: (With )
Living: With Family ()
Employment: Retired
Family History
Family History: Not pertinent
Allergies / Home Medications
Allergies reflects when Allergies were last updated in [facility].
Home Medications with original date entered in [facility]
Allergy/Medication List:
Allergies
Allergy/AdvReac Type Severity Reaction Status Date / Time
Penicillins Allergy Itching Verified 07/13/24 08:35
Home Medications
cholecalciferol (vitamin D3) 10 mcg (400 unit) tablet (Vitamin D3) 800 units PO DAILY Supplement 10/26/16
sotalol 120 mg tablet 120 mg PO BID Arrhythmia 10/30/20
alendronate 70 mg tablet (Fosamax) 70 mg PO COLON osteoporosis 03/25/23
ascorbic acid (vitamin C) 500 mg tablet (Vitamin C) 500 mg PO DAILY Supplement ##0 03/25/23
atorvastatin 80 mg tablet 80 mg PO DAILY High Cholesterol 03/25/23
calcium carbonate 500 mg PO DAILY Supplement ##0 03/25/23
citalopram 20 mg tablet 30 mg PO DAILY Depression 03/25/23
fluticasone fur. 100 mcg-umeclid 62.5 mcg-vilant 25 mcg inhalat.powder (Trelegy Ellipta) 1 inh inhalation R DAILY Lung/Breathing Issues 03/25/23
empagliflozin 10 mg tablet (Jardiance) 10 mg PO DAILY heart failure 07/13/24
potassium chloride 20 mEq tablet,extended release(part/cryst) 20 meq PO DAILY Electrolyte Repletion 07/13/24
spironolactone 25 mg tablet 12.5 mg PO DAILY Fluid Retention/Swelling 08/23/25
furosemide 80 mg tablet 80 mg PO BID Heart Failure 08/28/25
guaifenesin 600 mg tablet, extended release 12 hr (Mucinex) 1,200 mg PO BID Congestion 08/28/25
loratadine 10 mg tablet 10 mg PO DAILY Allergies 08/28/25
rivaroxaban 20 mg tablet (Xarelto) 20 mg PO QPM Blood Clot Prevention/Tx 08/28/25
Review of Systems
-
History Source: Patient
A 12 point ROS was completed and negative except as noted: Yes
Constitutional: Denies Fever, Fatigue or Chills
EENT: Reports Sore Throat; Denies Runny Nose
Respiratory: Reports Cough, Trouble Breathing and Other (Wheezing)
Cardiac: Denies Chest Pain, Diaphoresis or Palpitations
Abdomen/GI: Denies Abdominal Pain, Nausea, Vomiting, Diarrhea or Constipated
: Denies Dysuria, Frequency, Flank Pain or Incontinence
Musculoskeletal: Denies Joint Pain or Edema
Skin: Denies Itching or Rash
Neurological: Reports Other (Chronic head tremors); Denies Dizzy, Headache or Weakness
Endocrine: Reports No Symptoms
Hematologic/Lymphatic: Reports No Symptoms
Psych: Reports Calm
Physical Exam
Vital Signs
Vital Signs
Temp Pulse Resp BP Pulse Ox
99.4 F 79 24 142/89 99
08/28/25 10:14 08/28/25 11:00 08/28/25 11:00 08/28/25 11:00 08/28/25 11:00
Physical Exam
General: Comfortable and Conversant; No Pain, Fever or Chills
HEENT: NormoCephalic, Anicteric, PERRLA, Bentley Conjunctivae, No Ptosis, Oxygen (6 L nasal cannula) and Other (Chronic hoarse voice due to prior vocal cord CA with resection); No Pharyngeal Erythema
Respiratory: Wheezes (Scattered throughout both lung deleon); No Rales or Rhonchi
Cardiac: S1/S2 and Regular Rhythm; No Murmur, Rub, Gallop or Peripheral Edema
Breast: Deferred by me
GI: Soft, Non Tender, Non Distended, Normal Bowel Sounds and No Hepatosplenomegaly
Rectal: Deferred by Provider
Genito-urinary: Deferred by me
Musculoskeletal: No Clubbing, No Cyanosis and No Edema
Skin: Warm and Dry; No Rash
Neuro: AO x 3, No Motor Deficits, Nonfocal/grossly intact, Cranial Nerves Intact, No Sensory Deficits and Other (Chronic benign head tremors); No Slurred Speech, Facial Droop or Tremors
Psych: Calm
Laboratory Results
-
08/28/25 10:41
08/28/25 10:41
Laboratory Results
Total Bilirubin 0.8 mg/dl (0.2-1.3) 08/28/25 10:41
AST 31 U/L (14-36) 08/28/25 10:41
ALT 19 U/L (0-35) 08/28/25 10:41
Alkaline Phosphatase 71 U/L (38-126) 08/28/25 10:41
Troponin I 0.023 ng/ml 08/28/25 10:41
Impression/Plan
-
Impression/ Plan:
Admit to TELE
#Acute on chronic hypoxic resp insuff 10/07 to FLU A positive with Acute /Chronic COPD Exacerbation
#Hx Ex smoker
#Pulmonary hypertension history
- cont neb treatments, Trelegy
- cont supportive o2 supplementation
- Tamilflu
-Flu precautions
- tylenol prn
- mucinex
-Decadron 4 mg every 8 hours
-Consult pulmonary
- Pt/Ot consult
#Chronic CHf
cont lasix , SPironolactone , Jardiance
#Afib�paroxysmal
-cont sotalol ,Xarelto
#Pacemaker
# RBBB
#HTN
-Bp 134/66
- Continue sotalol
HLD
cont statin
#CAD/Rca stent
cont statin
# CVa
cont statin, xarelto
#Right carotid CEA
#PAD s/p left SFA stent 02/2012, 10/2016
#Depression
cont citalopram
#Chronic benign tremor head
#Chronic hoarse voice due to vocal cord CA with resection
#Chronic ambulatory dysfunction uses rollator at baseline
Other PMH:
right wrist pseudoaneurysm,
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
Bladder Ca with excision of tumor 2006
depression
Osetopenia- pt on vit D and fosamax
dvt proph
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
Full code
[2025-08-28] MEDS: TAMIFLU 75 MG PO (13:31)
--- NOTE | 2025-08-28 13:39 | CM ---
Chart reviewed. Spoke with pt at ED bedside
Lives in [facility] with
no local family here , family in [place] per pt
Independent with ADLs
walking with RW
home O2 4 LPM at baseline
DME home O2 RW
PCP Jose Carmen
[facility]
no hx of VN nor SNF
DCP is to go home with HHC ?
Cm will follow up for dcp needs
[2025-08-28] MEDS: DUONEB 3 ML INH (16:37)
--- NOTE | 2025-08-28 16:41 | CON.PUL ---
Consultation
Consultation Request
Date/Time Consultation Requested: 08/28/2025 - 124
Date/Time Consultation Performed: 08/28/2025 - 154
Requesting Provider: GUNJAN Woody
Performing Provider: Dr. Almendarez
Reason for Consultation: COPD exacerbation/Flu A
Medical History
-
Chief Complaint: SOB
History of Present Illness:
85-year-old female former tobacco smoker (17-[id number]-[id number] history � quit 1995) with a past medical history of COPD/asthma on home O2 (4 L/min ATC), paroxysmal A-fib on Xarelto/sotalol, history of laryngeal cancer s/p XRT (August 2017) complicated by
chronic voice hoarseness, history of SSS s/p PPM, PAD s/p SFA stent complicated by occlusion, essential tremor, history of COVID-19 (June 2022), history of bladder cancer, hypertension, depression and CAD who presents with worsening SOB and
increased oxygen requirements. Patient was recently at pulmonary office on 08/16/2025 and she complained of shortness of breath at that time. 6 MWT showed she needs for this per minute nasal cannula which she has been using. She has been compliant
with her Trelegy, albuterol and as needed Mucinex. At home she has increased her oxygen to 6 L/min nasal cannula due to shortness of breath, but she still continue to feel out of breath. In the ER she was saturating 88% on 6 L/min nasal cannula,
BP 93/53, respiratory rate 24 bpm, pulse rate 80 and she was afebrile to 99.4 �F. Labs showed mild leukocytosis at 13, proBNP 2600, COVID-19 antigen negative, and flu swab was positive for influenza A. Given Decadron, albuterol and ipratropium in
the ER, and admitted to the hospitalist service. Pulmonary now consulted for additional recommendations.
Past Medical History
Past Medical History: Other (See assessment for details)
Past Surgical History: Other (See assessment for details)
Social History
Tobacco: Former Smoker
Alcohol: Daily (1 drink of scotch nightly)
Drug: None
Personal:
Living: With Family
Employment: Retired
Family History
Family History: CAD (Mother + sibling), Cancer (Father - lung cancer) and Other (Sibling: CHF)
Allergies / Home Medications
Allergies
Allergy/AdvReac Type Severity Reaction Status Date / Time
Penicillins Allergy Itching Verified 07/13/24 08:35
Home Medications
�Medication �Instructions �Recorded �Confirmed �Last Taken �Type
cholecalciferol (vitamin D3) 10 800 units PO DAILY Supplement 10/26/16 08/28/25 08/27/25 History
mcg (400 unit) tablet (Vitamin D3)
sotalol 120 mg tablet 120 mg PO BID Arrhythmia 10/30/20 08/28/25 08/27/25 History
alendronate 70 mg tablet (Fosamax) 70 mg PO COLON osteoporosis 03/25/23 08/28/25 08/27/25 History
ascorbic acid (vitamin C) 500 mg 500 mg PO DAILY Supplement ##0 03/25/23 08/28/25 08/27/25 History
tablet (Vitamin C)
atorvastatin 80 mg tablet 80 mg PO DAILY High Cholesterol 03/25/23 08/28/25 08/27/25 History
calcium carbonate 500 mg PO DAILY Supplement ##0 03/25/23 08/28/25 08/27/25 History
citalopram 20 mg tablet 30 mg PO DAILY Depression 03/25/23 08/28/25 08/27/25 History
fluticasone fur. 100 mcg-umeclid 1 inh inhalation R DAILY 03/25/23 08/28/25 08/27/25 History
62.5 mcg-vilant 25 mcg Lung/Breathing Issues
inhalat.powder (Trelegy Ellipta)
empagliflozin 10 mg tablet 10 mg PO DAILY heart failure 07/13/24 08/28/25 08/27/25 History
(Jardiance)
potassium chloride 20 mEq 20 meq PO DAILY Electrolyte 07/13/24 08/28/25 08/27/25 History
tablet,extended release(part/cryst) Repletion
spironolactone 25 mg tablet 12.5 mg PO DAILY Fluid 08/23/25 08/28/25 08/27/25 History
Retention/Swelling
furosemide 80 mg tablet 80 mg PO BID Heart Failure 08/28/25 08/28/25 08/27/25 History
guaifenesin 600 mg tablet, 1,200 mg PO BID Congestion 08/28/25 08/28/25 08/27/25 History
extended release 12 hr (Mucinex)
loratadine 10 mg tablet 10 mg PO DAILY Allergies 08/28/25 08/28/25 08/27/25 History
rivaroxaban 20 mg tablet (Xarelto) 20 mg PO QPM Blood Clot 08/28/25 08/28/25 08/27/25 History
Prevention/Tx
Review of Systems
-
History Source: Patient
All other systems: Negative unless noted
Vitals / Labs / Diagnostic Testing
Vital Signs
Temp Pulse Resp BP Pulse Ox
98.5 F 81 16 126/62 98
08/28/25 19:00 08/28/25 21:02 08/28/25 19:00 08/28/25 21:02 08/28/25 19:00
Lab Data
08/28/25 18:20
08/28/25 18:20
Laboratory Results
08/28/25
18:20
PT 16.6 H
INR 1.37
APTT 33.8
Microbiology
08/28/25 10:33 Nasal Swab Influenza Types A & B (YENNI) - Final
Influenza A Positive, NAAT
Diagnostic Testing:
Physical Exam
-
HEENT: Normocephalic and Anicteric
Cardiovascular: S1/S2 and Peripheral Edema (n)
Respiratory: Wheeze (Bilateral), Rales (n), Rhonchi (n) and Non-Labored Respirations
GI: Soft, Non Distended, Non Tender and Normal Bowel Sounds
Neurology: Awake, Alert and Tremors (n)
Skin: Warm and Dry
General: Respiratory Distress (n), Comfortable, Chills (n) and Sweats (n)
Assessment
-
Assessment: 85-year-old female former tobacco smoker (04-bdqm-daqw history � quit 1995) with a past medical history of COPD/asthma on home O2 (4 L/min ATC), paroxysmal A-fib on Xarelto/sotalol, history of laryngeal cancer s/p XRT (August 2017)
complicated by chronic voice hoarseness, history of SSS s/p PPM, PAD s/p SFA stent complicated by occlusion, essential tremor, history of COVID-19 (June 2022), history of bladder cancer, hypertension, depression and CAD who presents with
worsening SOB and increased oxygen requirements. Patient was recently at pulmonary office on 08/16/2025 and she complained of shortness of breath at that time. 6 MWT showed she needs for this per minute nasal cannula which she has been using. She
has been compliant with her Trelegy, albuterol and as needed Mucinex. At home she has increased her oxygen to 6 L/min nasal cannula due to shortness of breath, but she still continue to feel out of breath. In the ER she was saturating 88% on 6
L/min nasal cannula, BP 93/53, respiratory rate 24 bpm, pulse rate 80 and she was afebrile to 99.4 �F. Labs showed mild leukocytosis at 13, proBNP 2600, COVID-19 antigen negative, and flu swab was positive for influenza A. Given Decadron,
albuterol and ipratropium in the ER, and admitted to the hospitalist service. Pulmonary now consulted for additional recommendations.
Conditions present prior admission:
Status post right carotic endarterectomy 12/03/2020
COPD-oxygen dependent on 4 L. On Trelegy.
Follows up with Dr. Garcia last appointment 02/07/2023.
Peripheral arterial disease
Atrial fibrillation-on anticoagulation
Sick sinus syndrome
Depression
Vocal cord cancer status post radiation- chronic hoarse voice.
History of asthma
Cataract extraction
History of Lyme disease
History of transitional bladder cancer
Essential tremor
Impression:
#Acute COPD exacerbation due to influenza A
#Acute on chronic hypoxic respiratory failure due to above
#Leukocytosis
#Hyperglycemia (HbA1c: 5.5 on 06/26/2024)
Plan:
- Patient is hospitalized with acute hypoxic respiratory failure with worsening O2 requirements, found to be influenza A positive in the setting of COPD
- Continue with Tamiflu
- Continue systemic steroids and wean as she clinically improves � currently on Decadron 4 mg IV q8hr
- Maintain euglycemia with goal BG >100 and <180 while on systemic steroids
- Aspiration precautions
- She is on Trelegy at home; continue Symbicort + Spiriva Respimat while hospitalized
- While on Spiriva, change nebulized ipratropium to nebulized albuterol to avoid anticholinergic toxicity and also
- prn nebulized bronchodilators for breakthrough symptoms
- If SOB persists/worsens, then stop all inhalers and use DuoNebs with budesonide until she stabilizes
- Continue with supplemental oxygen, titrating to keep SpO2 88-94%; avoid hyperoxia
- Continue other home medications for her A-fib, including sotalol and Xarelto
- Maintain MAP >65
- Continue home dose of Lasix
- Although proBNP is elevated at 2600, this has been around her baseline since April 2023 - -> no overt signs of volume overload on imaging, as she has chronic mosaic attenuation (although her last RV on file was 61% predicted via PFTs from February
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
- Last echo performed on 08/23/2025 showing little significant change compared to prior echo in June 2024, with preserved biventricular function, with normal-sized RA and PASP of 51 mmHg
- Replete electrolytes with K>4, Mg>2
- Maintain euglycemia with goal BG 140-180
- Trend H/H and transfuse if needed to keep Hb>7g/dL; keep plt>20k, unless there is concern for bleeding then keep plt>50k
- Incentive spirometer encouraged 10x per hour for at least 4 hrs a day
- DVT ppx
Code status: Full code
Patient already has an upcoming appointment with our Pulmonary office, scheduled for 09/10/[address] Garcia. She is recommended to keep this appointment.
Total time spent today was 58 minutes for this encounter. Time includes reviewing laboratory test/imaging results, reviewing pertinent medical records, obtaining and reviewing medical history, performing an appropriate exam, ordering medications,
tests and procedures. Time also includes documentation of this encounter, coordinating patient care and communicating with other healthcare professionals. Total time does not include separately billed tests performed on this date of service.
--- NOTE | 2025-08-28 16:43 | PTCARENOTE ---
Received pt. from ED around 1600. 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 Pt. currently on 6 L of O2. After getting pt. situated in bed, pt. stated she needed to use the bathroom. This nurse and tech helped pt. to the bedside commode. Without
any assistance pt. sat on commode, and got up from the commode. This nurse explained to the pt. to use her call cleaning when she needs to use the bathroom due to her respiratory status. Pt. expressed understanding. Will continue with ongoing plan of
care.
[2025-08-28] MEDS: TYLENOL 650 MG PO (17:01)
[2025-08-28] MEDS: XARELTO 20 MG PO (17:01)
[2025-08-28] MEDS: DECADRON 4 MG IV (17:02)
[2025-08-28 18:19] LABS: Glucose - Point of Care 240 mg/dl (70-99)
[2025-08-28 18:39] LABS: Hematocrit 38.6 % (37.0-47.0); Hemoglobin 12.4 g/dL (12.0-16.0); Mean Corp Hgb Conc. 32.1 g/dL (33.0-37.0); Mean Corpuscular Volume 96.0 fL (81.0-99.0); Platelet Count 181 10^3/uL (130-400); Red Cell Dist. Width 15.2 % (11.5-14.5)
--- NOTE | 2025-08-28 18:40 | W.PN.UPDATE ---
Update Note
Progress Note Update
Patient admitted for influenza and COPD exacerbation. She started to complain of chest discomfort and noticed to go into SVT (likely afib with RVR to 170's) which was brief and self - resolved. She continues to have some pleuritic chest
discomfort, states she has had this pain before.
On exam patient is AAO x 3, mildly tachypneic. BS without +rhonchi and end exp wheezing. she has some tenderness to palpation mid-sternum (states ice is helping).
EKG: a paced with PVC's, RBBB, TW flattening III seen in prior - no significant changes
Suspect pleuritic chest pain from reactive airway disease versus MSK from coughing. She is on Xarelto that she takes every day so I am not concerned for PE.
-I will stop albuterol in duonebs as this may have triggered SVT - scheduled atrovent, including now
-continue ice for MSK related pain, and tylenol
-follow up labs ordered during rapid - BMP, CBC, Troponin (does nto sound cardiac in nature)
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
-continue SOCIAL MEDIA COMMUNITY MANAGER Xarelto
--- NOTE | 2025-08-28 18:41 | RR ---
A Rapid Response was called on this patient, please see Rapid Response form.
Pt. observed on tele in SVT. This nurse went into pt. and pt. was complaining of chest pain. This nurse called a rapid response and obtained vitals and an EKG. The first BP was 84/48 and heart rate was 170. While getting the EKG, pt. observed to go
back into NSR and HR was back to 85. Pt's BP went up to 143/68. Pt. still with complaints of chest pain. MD came up to check on pt. Labs drawn and sent to lab. Nebulizer treatment changed due to risk of Albuterol causing high heart rate. Pt. made
aware and understands the teaching. Will continue with plan of care.
[2025-08-28 18:49] LABS: INR 1.37; PT 16.6 Sec (11.4-14.6)
[2025-08-28 18:50] LABS: APTT 33.8 Sec (23.4-35.0)
[2025-08-28 18:53] LABS: ALT (SGPT) 20 U/L (0-35); AST (SGOT) 33 U/L (14-36); Albumin 4.0 g/dl (3.5-5.0); Alkaline Phosphatase 74 U/L (38-126); Blood Urea Nitrogen 25 mg/dl (7-17); Calcium 8.8 mg/dl (8.4-10.2); Carbon Dioxide 32 mmol/L (22-30); Chloride 101 mmol/L (98-107); Estimated Creatinine Clearance 51 ml/min; Glucose 242 mg/dl (70-99); Potassium 4.0 mmol/L (3.5-5.1); Sodium 138 mmol/L (135-145); Total Protein 7.7 g/dl (6.3-8.2); eGFR > 60.00
[2025-08-28 19:03] LABS: Troponin I 0.023 ng/ml
[2025-08-28] MEDS: ATROVENT NEBULES 0.5 MG INH (19:33)
[2025-08-28] MEDS: SYMBICORT 80/4.5 MCG INHALER 2 PUFF INH (19:46)
--- NOTE | 2025-08-28 20:19 | W.PN.UPDATE ---
Update Note
Progress Note Update
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
Paroxysmal SVT - spontaneously resolved
Some chest discomfort 170�s that self resolved
Some pleuritic chest pain and also tender on sternum on exam
- on Xarelto
- Likely MSK or from COPD.
- Ipratropium Nebs in place of Albuterol
[2025-08-28] MEDS: BETAPACE 120 MG PO (21:01)
[2025-08-28] MEDS: MUCINEX 1200 MG PO (21:01)
[2025-08-28] MEDS: TAMIFLU 30 MG PO (21:02)
[2025-08-28] MEDS: LASIX 80 MG PO (21:02)
[2025-08-29] VITALS (7 sets, daily range): BP systolic 131–172; BP diastolic 63–87; PULSE 83; O2SAT 95; BMI 22.0
[2025-08-29] MEDS: DECADRON 4 MG IV ×2 (03:45→09:56)
[2025-08-29] MEDS: VENTOLIN NEBULES 2.5 MG INH ×3 (07:38→21:58)
[2025-08-29] MEDS: SPIRIVA RESPIMAT 2.5 MCG 2 PUFF INH (07:38)
[2025-08-29] MEDS: SYMBICORT 80/4.5 MCG INHALER 2 PUFF INH ×2 (07:39→21:58)
[2025-08-29] MEDS: OSCAL CAL 500 500 MG PO (07:56)
[2025-08-29] MEDS: FARXIGA 10 MG PO (07:56)
[2025-08-29] MEDS: CLARITIN 10 MG PO (07:56)
[2025-08-29] MEDS: CELEXA 30 MG PO (07:56)
[2025-08-29] MEDS: LIPITOR 80 MG PO (07:56)
[2025-08-29] MEDS: VITAMIN D3 (cholecalciferol) 20 MCG PO (07:58)
[2025-08-29] MEDS: LASIX 80 MG PO ×2 (07:59→20:15)
[2025-08-29] MEDS: MUCINEX 1200 MG PO ×2 (07:59→20:15)
[2025-08-29] MEDS: BETAPACE 120 MG PO ×2 (07:59→20:16)
[2025-08-29] MEDS: TAMIFLU 30 MG PO ×2 (08:00→20:16)
[2025-08-29] MEDS: TYLENOL 650 MG PO ×3 (08:07→20:18)
--- NOTE | 2025-08-29 09:22 | W.PN.HOSP.TC ---
Today's Communication/Plan
-
see plan
Assessment / Plan
Assessment / Plan
Ms. Asia Downing is a 85 yo woman with hx former smoker (quit 1995), COPD/asthma, chronic hypoxic resp insufficiency (on 4L), paroxysmal afib on Xarelto, laryngeal cancer s/p XRT, SSS s/p PPM, essential tremor presents to the ER with worsening
shortness of breath, found to be Influenza A positive and with COPD exacerbation.
Acute on chronic hypoxic Respiratory insufficiency / to FLU A positive with Acute COPD Exacerbation
Hx Tobacco Use
Pulmonary hypertension history
- on Trelegy at home - continue Symbicort + Spiriva while hospitalized
- stop Ipratropium as patient on Spiriva, albuterol ordered - hold if further SVT
- Tamiflu
- O2 support as needed
- IV Decadron q 8
- appreciate pulmonary
Chronic HFpEF
cont lasix , SPironolactone , Jardiance
Afib�paroxysmal
-cont sotalol ,Xarelto
SVT rapid response evening of admission; quickly converted back to sinus
stop albuterol if recurrence of fast rates
pleuritic chest discomfort improving with tylenol and Ice, suspect MSK
SSS s/p Pacemaker
RBBB
Essential HTN
- Continue sotalol
HLD
cont statin
CAD/Rca stent
cont statin
CVa
cont statin, xarelto
Right carotid CEA
PAD s/p left SFA stent 02/2012, 10/2016
Depression
cont citalopram
Chronic benign tremor
Chronic hoarse voice due to vocal cord CA with resection
Chronic ambulatory dysfunction uses rollator at baseline
Other PMH:
right wrist pseudoaneurysm,
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
Bladder Ca with excision of tumor 2006
depression
Osetopenia- pt on vit D and fosamax
dvt proph
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
Full code
Anticipated Discharge: 24 - 48 hours
Subjective/Interval History
-
Date of Service: August 29, 2025
patient states she is feeling much better than yesterday
she has mild chest discomfort on inspiration relieved by ice and tylenol
Objective Data
-
Labs:
Laboratory Results
08/29/25
08:26
WBC Pending
Hgb Pending
Hct Pending
Plt Count Pending
Sodium Pending
Potassium Pending
Chloride Pending
Carbon Dioxide Pending
BUN Pending
Creatinine Pending
Glucose Pending
Calcium Pending
Total Bilirubin Pending
AST Pending
ALT Pending
Alkaline Phosphatase Pending
Vital Signs:
Vital Signs
Temp Pulse Resp BP Pulse Ox
97.9 F 79 18 152/78 96
08/29/25 07:30 08/29/25 07:59 08/29/25 07:41 08/29/25 07:59 08/29/25 08:41
I&O
08/28/25 08/29/25 08/30/25
06:59 06:59 06:59
Intake Total 480 / 480
Balance 480 / 480
Review of Systems
-
History Source: Patient
All other systems: Reviewed and negative
Physical Exam
-
General: No Apparent Distress
HEENT: PERRLA and Other (baseline tremors; on 5L O2)
Respiratory: Wheezes
Cardiac: Regular Rhythm and S1/S2
GI: Soft and Nontender
Musculoskeletal: No Edema
Neuro: AO x 3
Psych: Calm
Data Reviewed
-
Diagnostic Radiology: Report Reviewed by me
Labs: Labs Reviewed by me
[2025-08-29 09:40] LABS: Hematocrit 40.8 % (37.0-47.0); Hemoglobin 12.9 g/dL (12.0-16.0); Mean Corp Hgb Conc. 31.6 g/dL (33.0-37.0); Mean Corpuscular Volume 98.8 fL (81.0-99.0); Nucleated Red Blood Cells % 0 %; Platelet Count 181 10^3/uL (130-400); Red Cell Dist. Width 15.0 % (11.5-14.5)
[2025-08-29 10:24] LABS: ALT (SGPT) 22 U/L (0-35); AST (SGOT) 32 U/L (14-36); Albumin 3.9 g/dl (3.5-5.0); Alkaline Phosphatase 76 U/L (38-126); Blood Urea Nitrogen 26 mg/dl (7-17); Calcium 8.5 mg/dl (8.4-10.2); Carbon Dioxide 32 mmol/L (22-30); Chloride 100 mmol/L (98-107); Estimated Creatinine Clearance 45 ml/min; Glucose 134 mg/dl (70-99); Potassium 3.8 mmol/L (3.5-5.1); Sodium 142 mmol/L (135-145); Total Protein 7.7 g/dl (6.3-8.2); eGFR > 60.00
[2025-08-29] MEDS: REFRESH EYE DROPS (PF) 1 DROPS OPHTH (12:58)
--- NOTE | 2025-08-29 14:37 | W.PN.PUL3 ---
Today's Communication / Plan
-
Continue IV corticosteroids-decrease dosage-hopefully prednisone in the next 24 hours.
Nebulizers as needed
Tamiflu
Continue inhalers
Will follow
Assessment
-
Assessment: 85-year-old female former tobacco smoker (22-gaqc-sfou history � quit 1995) with a past medical history of COPD/asthma on home O2 (4 L/min ATC), paroxysmal A-fib on Xarelto/sotalol, history of laryngeal cancer s/p XRT (August 2017)
complicated by chronic voice hoarseness, history of SSS s/p PPM, PAD s/p SFA stent complicated by occlusion, essential tremor, history of COVID-19 (June 2022), history of bladder cancer, hypertension, depression and CAD who presents with
worsening SOB and increased oxygen requirements. Patient was recently at pulmonary office on 08/16/2025 and she complained of shortness of breath at that time. 6 MWT showed she needs for this per minute nasal cannula which she has been using. She
has been compliant with her Trelegy, albuterol and as needed Mucinex. At home she has increased her oxygen to 6 L/min nasal cannula due to shortness of breath, but she still continue to feel out of breath. In the ER she was saturating 88% on 6
L/min nasal cannula, BP 93/53, respiratory rate 24 bpm, pulse rate 80 and she was afebrile to 99.4 �F. Labs showed mild leukocytosis at 13, proBNP 2600, COVID-19 antigen negative, and flu swab was positive for influenza A. Given Decadron,
albuterol and ipratropium in the ER, and admitted to the hospitalist service. Pulmonary now consulted for additional recommendations.
Conditions present prior admission:
Status post right carotic endarterectomy 12/03/2020
COPD-oxygen dependent on 4 L. On Trelegy.
Follows up with Dr. Garcia last appointment 02/07/2023.
Peripheral arterial disease
Atrial fibrillation-on anticoagulation
Sick sinus syndrome
Depression
Vocal cord cancer status post radiation- chronic hoarse voice.
History of asthma
Cataract extraction
History of Lyme disease
History of transitional bladder cancer
Essential tremor
Impression:
#Acute COPD exacerbation due to influenza A
#Acute on chronic hypoxic respiratory failure due to above
#Leukocytosis
#Hyperglycemia (HbA1c: 5.5 on 06/26/2024)
Plan:
- Patient is hospitalized with acute hypoxic respiratory failure with worsening O2 requirements, found to be influenza A positive in the setting of COPD
- Continue with Tamiflu
- no significant bronchospastic-has bibasilar crackles and rhonchi-decrease corticosteroids 2 mg IV every 8.
- Maintain euglycemia with goal BG >100 and <180 while on systemic steroids
- Aspiration precautions
- She is on Trelegy at home; continue Symbicort + Spiriva Respimat while hospitalized
- While on Spiriva, change nebulized ipratropium to nebulized albuterol to avoid anticholinergic toxicity and also
- prn nebulized bronchodilators for breakthrough symptoms
- If SOB persists/worsens, then stop all inhalers and use DuoNebs with budesonide until she stabilizes
- Continue with supplemental oxygen, titrating to keep SpO2 88-94%; avoid hyperoxia
- Continue other home medications for her A-fib, including sotalol and Xarelto
- Continue home dose of Lasix
- Although proBNP is elevated at 2600, this has been around her baseline since April 2023 - -> no overt signs of volume overload on imaging, as she has chronic mosaic attenuation (although her last RV on file was 61% predicted via PFTs from February
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
- Last echo performed on 08/23/2025 showing little significant change compared to prior echo in June 2024, with preserved biventricular function, with normal-sized RA and PASP of 51 mmHg
- Maintain euglycemia with goal BG 140-180
- Incentive spirometer encouraged 10x per hour for at least 4 hrs a day
- DVT ppx
Code status: Full code
Patient already has an upcoming appointment with our Pulmonary office, scheduled for 09/10/[address] Garcia. She is recommended to keep this appointment.
Total time spent today was 35 minutes for this encounter. Time includes reviewing laboratory test/imaging results, reviewing pertinent medical records, obtaining and reviewing medical history, performing an appropriate exam, ordering medications,
tests and procedures. Time also includes documentation of this encounter, coordinating patient care and communicating with other healthcare professionals. Total time does not include separately billed tests performed on this date of service.
Subjective Data
-
Date of Service:
Date of Service: August 29, 2025
Objective Data
Data Reviewed
Vital Signs / I&O / Oxygen:
Vital Signs
Temp Pulse Resp BP Pulse Ox
97.6 F 49 18 139/64 95
08/29/25 11:30 08/29/25 11:30 08/29/25 11:30 08/29/25 11:30 08/29/25 11:30
Intake and Output
08/28/25 08/29/25 08/30/25
06:59 06:59 06:59
Intake Total 480 / 480
Balance 480 / 480
SaO2 95
Nasal Cannula flow liters per 5
minute
Labs/Micro/Reports
Lab Data
08/29/25 08:26
08/29/25 08:26
Laboratory Results
08/28/25
18:20
PT 16.6 H
INR 1.37
APTT 33.8
Microbiology
08/28/25 10:33 Nasal Swab Influenza Types A & B (YENNI) - Final
Influenza A Positive, NAAT
[2025-08-29] MEDS: XARELTO 20 MG PO (17:13)
[2025-08-29] MEDS: DECADRON 2 MG IV (17:14)
[2025-08-30] VITALS (7 sets, daily range): BP systolic 136–174; BP diastolic 64–90; BMI 22.2
[2025-08-30] MEDS: DECADRON 2 MG IV ×3 (02:06→17:29)
[2025-08-30 06:29] LABS: Hematocrit 38.7 % (37.0-47.0); Hemoglobin 12.3 g/dL (12.0-16.0); Mean Corp Hgb Conc. 31.8 g/dL (33.0-37.0); Mean Corpuscular Volume 96.0 fL (81.0-99.0); Nucleated Red Blood Cells % 0 %; Platelet Count 182 10^3/uL (130-400); Red Cell Dist. Width 15.0 % (11.5-14.5)
[2025-08-30 06:52] LABS: ALT (SGPT) 21 U/L (0-35); AST (SGOT) 32 U/L (14-36); Albumin 3.8 g/dl (3.5-5.0); Alkaline Phosphatase 68 U/L (38-126); Blood Urea Nitrogen 35 mg/dl (7-17); Calcium 8.2 mg/dl (8.4-10.2); Carbon Dioxide 30 mmol/L (22-30); Chloride 102 mmol/L (98-107); Estimated Creatinine Clearance 40 ml/min; Glucose 131 mg/dl (70-99); Potassium 3.9 mmol/L (3.5-5.1); Sodium 140 mmol/L (135-145); Total Protein 7.6 g/dl (6.3-8.2); eGFR > 60.00
[2025-08-30] MEDS: SYMBICORT 80/4.5 MCG INHALER 2 PUFF INH ×2 (07:46→19:42)
[2025-08-30] MEDS: SPIRIVA RESPIMAT 2.5 MCG 2 PUFF INH (07:46)
[2025-08-30] MEDS: VENTOLIN NEBULES 2.5 MG INH ×3 (07:46→19:42)
--- NOTE | 2025-08-30 08:50 | W.PN.HOSP.TC ---
Today's Communication/Plan
-
continue nebs, decadron, Tamiflu
eventual SNF (possibly over weekend)
appreciate Pulmonary
Assessment / Plan
Assessment / Plan
Ms. Asia Downing is a 85 yo woman with hx former smoker (quit 1995), COPD/asthma, chronic hypoxic resp insufficiency (on 4L), paroxysmal afib on Xarelto, laryngeal cancer s/p XRT, SSS s/p PPM, essential tremor presents to the ER with worsening
shortness of breath, found to be Influenza A positive and with COPD exacerbation.
Acute on chronic hypoxic Respiratory insufficiency / to FLU A positive with Acute COPD Exacerbation
Hx Tobacco Use
Pulmonary hypertension history
- on Trelegy at home - continue Symbicort + Spiriva while hospitalized
- stop Ipratropium as patient on Spiriva, albuterol ordered - hold if further SVT
- Tamiflu
- O2 support as needed
- IV Decadron q 8
- appreciate pulmonary
- eventual SNF
Chronic HFpEF
cont lasix , SPironolactone , Jardiance
Afib�paroxysmal
-cont sotalol ,Xarelto
SVT rapid response evening of admission; quickly converted back to sinus
stop albuterol if recurrence of fast rates
pleuritic chest discomfort improving with tylenol and Ice, suspect MSK - improving each day per patient
SSS s/p Pacemaker
RBBB
Essential HTN
- Continue sotalol
HLD
cont statin
CAD/Rca stent
cont statin
CVa
cont statin, xarelto
Right carotid CEA
PAD s/p left SFA stent 02/2012, 10/2016
Depression
cont citalopram
Chronic benign tremor
Chronic hoarse voice due to vocal cord CA with resection
Chronic ambulatory dysfunction uses rollator at baseline
Other PMH:
right wrist pseudoaneurysm,
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
Bladder Ca with excision of tumor 2006
depression
Osetopenia- pt on vit D and fosamax
dvt proph
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
Full code
Anticipated Discharge: 24 - 48 hours
Subjective/Interval History
-
Date of Service: August 30, 2025
overall feeling better
continues to have wheezing
Objective Data
-
Labs:
Laboratory Results
08/30/25
05:43
WBC 14.7 H
Hgb 12.3
Hct 38.7
Plt Count 182
Sodium 140
Potassium 3.9
Chloride 102
Carbon Dioxide 30
BUN 35 H
Creatinine 0.9
Glucose 131 H
Calcium 8.2 L
Total Bilirubin 0.4
AST 32
ALT 21
Alkaline Phosphatase 68
Vital Signs:
Vital Signs
Temp Pulse Resp BP Pulse Ox
98.1 F 73 16 174/85 94
08/30/25 07:59 08/30/25 07:59 08/30/25 07:59 08/30/25 07:59 08/30/25 07:59
I&O
08/29/25 08/30/25 08/31/25
06:59 06:59 06:59
Intake Total 480 / 480 920 / 920
Balance 480 / 480 920 / 920
Review of Systems
-
History Source: Patient
All other systems: Reviewed and negative
Physical Exam
-
General: No Apparent Distress
HEENT: PERRLA and Other (baseline tremors; on 4L O2)
Respiratory: Wheezes
Cardiac: Regular Rhythm and S1/S2
GI: Soft and Nontender
Musculoskeletal: No Edema
Neuro: AO x 3
Psych: Calm
Data Reviewed
-
Diagnostic Radiology: Report Reviewed by me
Labs: Labs Reviewed by me
[2025-08-30] MEDS: CLARITIN 10 MG PO (09:32)
[2025-08-30] MEDS: OSCAL CAL 500 500 MG PO (09:32)
[2025-08-30] MEDS: CELEXA 30 MG PO (09:32)
[2025-08-30] MEDS: FARXIGA 10 MG PO (09:32)
[2025-08-30] MEDS: TAMIFLU 30 MG PO ×2 (09:32→21:13)
[2025-08-30] MEDS: BETAPACE 120 MG PO ×2 (09:32→21:13)
[2025-08-30] MEDS: LIPITOR 80 MG PO (09:32)
[2025-08-30] MEDS: MUCINEX 1200 MG PO ×2 (09:32→21:13)
[2025-08-30] MEDS: LASIX 80 MG PO ×2 (09:33→21:13)
[2025-08-30] MEDS: VITAMIN D3 (cholecalciferol) 20 MCG PO (09:35)
--- NOTE | 2025-08-30 09:52 | W.PN.PUL3 ---
Today's Communication / Plan
-
Continue IV corticosteroids-decrease dosage-hopefully prednisone in the next 24-48 hrs
Symbicort/Spiriva/nebulized albuterol TID
prn DuoNebs for breakthrough symptoms
Tamiflu
Up OOB as tolerated
Patient already has an upcoming appointment with our Pulmonary office, scheduled for 09/10/[address] Garcia. She is recommended to keep this appointment.
Will follow
Assessment
-
Assessment: 85-year-old female former tobacco smoker (22-furq-tbyj history � quit 1995) with a past medical history of COPD/asthma on home O2 (4 L/min ATC), paroxysmal A-fib on Xarelto/sotalol, history of laryngeal cancer s/p XRT (August 2017)
complicated by chronic voice hoarseness, history of SSS s/p PPM, PAD s/p SFA stent complicated by occlusion, essential tremor, history of COVID-19 (June 2022), history of bladder cancer, hypertension, depression and CAD who presents with
worsening SOB and increased oxygen requirements. Patient was recently at pulmonary office on 08/16/2025 and she complained of shortness of breath at that time. 6 MWT showed she needs for this per minute nasal cannula which she has been using. She
has been compliant with her Trelegy, albuterol and as needed Mucinex. At home she has increased her oxygen to 6 L/min nasal cannula due to shortness of breath, but she still continue to feel out of breath. In the ER she was saturating 88% on 6
L/min nasal cannula, BP 93/53, respiratory rate 24 bpm, pulse rate 80 and she was afebrile to 99.4 �F. Labs showed mild leukocytosis at 13, proBNP 2600, COVID-19 antigen negative, and flu swab was positive for influenza A. Given Decadron,
albuterol and ipratropium in the ER, and admitted to the hospitalist service. Pulmonary now consulted for additional recommendations.
Conditions present prior admission:
Status post right carotic endarterectomy 12/03/2020
COPD-oxygen dependent on 4 L. On Trelegy.
Follows up with Dr. Garcia last appointment 02/07/2023.
Peripheral arterial disease
Atrial fibrillation-on anticoagulation
Sick sinus syndrome
Depression
Vocal cord cancer status post radiation- chronic hoarse voice.
History of asthma
Cataract extraction
History of Lyme disease
History of transitional bladder cancer
Essential tremor
Impression:
#Acute COPD exacerbation due to influenza A
#Acute on chronic hypoxic respiratory failure due to above
#Leukocytosis
#Hyperglycemia (HbA1c: 5.5 on 06/26/2024)
Plan:
- Patient is hospitalized with acute hypoxic respiratory failure with worsening O2 requirements, found to be influenza A positive in the setting of COPD
- Continue with Tamiflu
- Not bronchospastic-decreased corticosteroids 2 mg IV every 8hr - -> hopefully can be transition to PO prednisone over the next 24-48-hour
- Maintain euglycemia with goal BG >100 and <180 while on systemic steroids
- Aspiration precautions
- She is on Trelegy at home; continue Symbicort + Spiriva Respimat while hospitalized
- While on Spiriva, changed nebulized ipratropium to nebulized albuterol to avoid anticholinergic toxicity
- prn nebulized bronchodilators for breakthrough symptoms
- If SOB persists/worsens, then stop all inhalers and use DuoNebs with budesonide until she stabilizes
- Continue with supplemental oxygen, titrating to keep SpO2 88-94%; avoid hyperoxia
- Continue other home medications for her A-fib, including sotalol and Xarelto
- Continue home dose of Lasix
- Although proBNP is elevated at 2600, this has been around her baseline since April 2023 - -> no overt signs of volume overload on imaging, as she has chronic mosaic attenuation (although her last RV on file was 61% predicted via PFTs from February
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
- Last echo performed on 08/23/2025 showing little significant change compared to prior echo in June 2024, with preserved biventricular function, with normal-sized RA and PASP of 51 mmHg
- Maintain euglycemia with goal BG 140-180
- Incentive spirometer encouraged 10x per hour for at least 4 hrs a day
- DVT ppx: Xarelto
Code status: Full code
Patient already has an upcoming appointment with our Pulmonary office, scheduled for 09/10/[address] Garcia. She is recommended to keep this appointment.
Total time spent today was 41 minutes for this encounter. Time includes reviewing laboratory test/imaging results, reviewing pertinent medical records, obtaining and reviewing medical history, performing an appropriate exam, ordering medications,
tests and procedures. Time also includes documentation of this encounter, coordinating patient care and communicating with other healthcare professionals. Total time does not include separately billed tests performed on this date of service.
Subjective Data
-
Date of Service:
Date of Service: August 30, 2025
Chief Complaint: Pulmonary Follow Up
Subjective:
Patient seen today at bedside. On 4 L/min nasal cannula. She feels well, with SOB persisting but not worsening. No chest pain, TAI, fevers or chills. Afebrile overnight.
Review of Systems
General: Other (Negative unless mentioned above)
Objective Data
Data Reviewed
Vital Signs / I&O / Oxygen:
Vital Signs
Temp Pulse Resp BP Pulse Ox
97.6 F 84 18 162/70 93
08/30/25 11:07 08/30/25 11:07 08/30/25 11:07 08/30/25 11:07 08/30/25 11:07
Intake and Output
08/29/25 08/30/25 08/31/25
06:59 06:59 06:59
Intake Total 480 / 480 920 / 920
Balance 480 / 480 920 / 920
SaO2 93
Nasal Cannula flow liters per 4
minute
Physical Exam
General: Respiratory Distress (n), Comfortable, Chills (n) and Sweats (n)
HEENT: Normocephalic and Anicteric
Cardiovascular: S1-S2 and Peripheral Edema (n)
Respiratory: Wheeze (n), Crackles (n), Rhonchi (Bilateral), Non-Labored Respirations and Stridor (n)
GI: Soft, Non Distended, Non Tender and Normal Bowel Sounds
Neurology: Awake, Alert and Tremors (n)
Skin: Warm, Dry, Cyanosis (n) and Jaundice (n)
Labs/Micro/Reports
Lab Data
08/30/25 05:43
08/30/25 05:43
Microbiology
08/28/25 10:33 Nasal Swab Influenza Types A & B (YENNI) - Final
Influenza A Positive, NAAT
--- NOTE | 2025-08-30 12:28 | PN.CDI ---
CDI
- -
CDI:
Physician Documentation Request
Admit Date: 08/28/25 13:14
Dear Doctor Margarita,
Please review the following and provide your response in the progress notes.
The purpose of this query is to ensure the accuracy of the conditions reported for your patient.
Clinical indicators:
Atmospheric Sciences Professor, PN, 08/29
#...past medical history of COPD/asthma on home O2 (4 L/min ATC),
#...At home she has increased her oxygen to 6 L/min nasal cannula
#...due to shortness of breath, but she still continue to feel out of breath.
#Acute COPD exacerbation due to influenza A
#Acute on chronic hypoxic respiratory failure due to above
PN, 08/30
#Acute on chronic hypoxic Respiratory insufficiency
#...2/ to FLU A positive with Acute COPD Exacerbation
#- O2 support as needed
Based on the above and your clinical assessment, please clarify which of the following accurately represents the patient's respiratory status:
Acute on chronic hypoxic respiratory failure
Acute on chronic hypoxic respiratory insufficiency
Other(please specify)
Use of terms such as suspected, likely, concern for, or probable (associated with a specific diagnosis that is being evaluated, monitored, or treated as if it exists) are acceptable and can be coded in the inpatient setting, when documented at the
time of discharge.
Thank you,
Whitney De La Cruz RN BSN CCDS
CDI Specialist
Please contact via tiger text
Please use your independent medical judgment in providing your response.
--- NOTE | 2025-08-30 12:37 | PN.CDI ---
CDI
- -
CDI:
Physician Documentation Request
Admit Date: 08/28/25 13:14
Dear Doctor Margarita,
Please review the following and provide your response in the progress notes.
Clinical Indicators:
Nursing Assessment, 08/29
Selected Entries
08/29/25
08:41
Pressure injury stage [Present on admission Bilateral Heel] Stage 1
Physician documentation of the type and location of wounds is required for compliant documentation. Based on the above clinical findings and your assessment, please provide the following in your progress note:
Yes, Stage 1 pressure injury bilateral heels, POA
No, Stage 1 pressure injury bilateral heels
Other (Please specify)
1. Location of the ulcer/wound, including laterality.
2. Type (etiology) of ulcer/wound:
- Diabetic ulcer
- Arterial (ischemic) ulcer
- Traumatic wound
- Venous stasis ulcer
- Pressure (decubitus) ulcer
3. For a pressure ulcer, please also include the stage* of the ulcer:
- Stage 1 - Skin intact, non-blanchable redness
- Stage 2 - Partial thickness loss of dermis, includes intact or open blister
- Stage 3 - Full thickness tissue not including bone, tendon or muscle
- Stage 4 - Full thickness tissue loss, including exposed bone, tendon or muscle
- Unstageable - Full thickness loss in which the base of the ulcer is covered by slough (yellow, cornell, lawrence, green or brown) and/or eschar (cornell, brown or black) in the wound bed.
- Unable to determine
Use of terms such as suspected, likely, concern for, or probable (associated with a specific diagnosis that is being evaluated, monitored, or treated as if it exists) are acceptable and can be coded in the inpatient setting, when documented at the
time of discharge.
Thank you,
Whitney De La Cruz RN BSN CCDS
CDI Specialist
Please contact via tiger text
Please use your independent medical judgment in providing your response.
*Source: National Pressure Ulcer Advisory Panel (NPUAP)
--- NOTE | 2025-08-30 14:20 | CM ---
JOSE met with Asia in room 329-1. She is in good spirits and hoping she will improve to the point that she can return home with her where they live together in one of the [facility].
At baseline she uses a rollator and is able to manage independently with her . She is on 4L O2 at baseline.
JOSE spoke with Asia about admission to [facility] SNF when she is medically stable. Asia is agreeable to considering SNF at [facility] if she is not feeling up to returning to home with her .
Plan: Discharge to home vs. SNF pending hospital course. Referral entered in [facility]
[2025-08-30] MEDS: XARELTO 20 MG PO (17:28)
[2025-08-31] VITALS (8 sets, daily range): BP systolic 138–177; BP diastolic 61–89; PULSE 76; O2SAT 93; BMI 22.0
[2025-08-31] MEDS: DECADRON 2 MG IV ×2 (02:57→09:46)
[2025-08-31] MEDS: SYMBICORT 80/4.5 MCG INHALER 2 PUFF INH ×2 (07:57→20:44)
[2025-08-31] MEDS: SPIRIVA RESPIMAT 2.5 MCG 2 PUFF INH (07:57)
[2025-08-31] MEDS: VENTOLIN NEBULES 2.5 MG INH ×3 (07:57→20:44)
--- NOTE | 2025-08-31 08:41 | W.PN.HOSP.TC ---
Addendum entered and electronically signed by Alicia Avila MD 08/31/25 11:33:
Stage 1 pressure injury bilateral heels, POA
-appreciate wound care
Acute on chronic hypoxic resp failure with need for 6L
-see plan below
Original Note:
Today's Communication/Plan
-
see plan
Assessment / Plan
Assessment / Plan
Ms. Asia Downing is a 85 yo woman with hx former smoker (quit 1995), COPD/asthma, chronic hypoxic resp insufficiency (on 4L), paroxysmal afib on Xarelto, laryngeal cancer s/p XRT, SSS s/p PPM, essential tremor presents to the ER with worsening
shortness of breath, found to be Influenza A positive and with COPD exacerbation.
Acute on chronic hypoxic Respiratory insufficiency 10/07 to FLU A positive with Acute COPD Exacerbation
Hx Tobacco Use
Pulmonary hypertension history
- on Trelegy at home - continue Symbicort + Spiriva while hospitalized
- stop Ipratropium as patient on Spiriva, albuterol ordered - hold if further SVT
- Tamiflu (day 4/)
- O2 support as needed
- IV Decadron 2mg q 8
- appreciate pulmonary
- eventual SNF versus HH if mobility improves
Chronic HFpEF
cont lasix , SPironolactone , Jardiance
Afib�paroxysmal
-cont sotalol ,Xarelto
SVT rapid response evening of admission; quickly converted back to sinus
stop albuterol if recurrence of fast rates
pleuritic chest discomfort improving with tylenol and Ice, suspect MSK - improving each day per patient
SSS s/p Pacemaker
RBBB
Essential HTN
- Continue sotalol
HLD
cont statin
CAD/Rca stent
cont statin
CVa
cont statin, xarelto
Right carotid CEA
PAD s/p left SFA stent 02/2012, 10/2016
Depression
cont citalopram
Chronic benign tremor
Chronic hoarse voice due to vocal cord CA with resection
Chronic ambulatory dysfunction uses rollator at baseline
Other PMH:
right wrist pseudoaneurysm,
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
Bladder Ca with excision of tumor 2006
depression
Osetopenia- pt on vit D and fosamax
dvt proph
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
Full code
Anticipated Discharge: 24 - 48 hours
Subjective/Interval History
-
Date of Service: August 31, 2025
states she is feeling better each day
continues to have wheezing
chest discomfort gone
Objective Data
-
Vital Signs:
Vital Signs
Temp Pulse Resp BP Pulse Ox
98.4 F 70 16 166/86 94
08/31/25 07:00 08/31/25 07:58 08/31/25 07:58 08/31/25 07:00 08/31/25 07:58
I&O
08/30/25 08/31/25 09/01/25
06:59 06:59 06:59
Intake Total 920 / 920 720 / 720
Balance 920 / 920 720 / 720
Review of Systems
-
History Source: Patient
All other systems: Reviewed and negative
Physical Exam
-
General: No Apparent Distress
HEENT: PERRLA and Other (baseline tremors; on 4L O2)
Respiratory: Wheezes
Cardiac: Regular Rhythm and S1/S2
GI: Soft and Nontender
Musculoskeletal: No Edema
Neuro: AO x 3
Psych: Calm
Data Reviewed
-
Diagnostic Radiology: Report Reviewed by me
Labs: Labs Reviewed by me
[2025-08-31] MEDS: VITAMIN D3 (cholecalciferol) 20 MCG PO (09:41)
[2025-08-31] MEDS: CELEXA 30 MG PO (09:42)
[2025-08-31] MEDS: FARXIGA 10 MG PO (09:42)
[2025-08-31] MEDS: TAMIFLU 30 MG PO ×2 (09:42→20:54)
[2025-08-31] MEDS: LASIX 80 MG PO ×2 (09:42→20:54)
[2025-08-31] MEDS: MUCINEX 1200 MG PO ×2 (09:42→20:53)
[2025-08-31] MEDS: LIPITOR 80 MG PO (09:42)
[2025-08-31] MEDS: OSCAL CAL 500 500 MG PO (09:42)
[2025-08-31] MEDS: BETAPACE 120 MG PO ×2 (09:43→20:53)
[2025-08-31] MEDS: CLARITIN 10 MG PO (09:43)
--- NOTE | 2025-08-31 14:50 | W.PN.PUL3 ---
Today's Communication / Plan
-
Transition to prednisone-30 mg and decrease by 10 mg every 48 hours to off.
Wean down FiO2
Tamiflu
Isolation
Inhalers will continue
Nebulizers as needed
Will follow
Assessment
-
Assessment: 85-year-old female former tobacco smoker (35-nhvv-hcsh history � quit 1995) with a past medical history of COPD/asthma on home O2 (4 L/min ATC), paroxysmal A-fib on Xarelto/sotalol, history of laryngeal cancer s/p XRT (August 2017)
complicated by chronic voice hoarseness, history of SSS s/p PPM, PAD s/p SFA stent complicated by occlusion, essential tremor, history of COVID-19 (June 2022), history of bladder cancer, hypertension, depression and CAD who presents with
worsening SOB and increased oxygen requirements. Patient was recently at pulmonary office on 08/16/2025 and she complained of shortness of breath at that time. 6 MWT showed she needs for this per minute nasal cannula which she has been using. She
has been compliant with her Trelegy, albuterol and as needed Mucinex. At home she has increased her oxygen to 6 L/min nasal cannula due to shortness of breath, but she still continue to feel out of breath. In the ER she was saturating 88% on 6
L/min nasal cannula, BP 93/53, respiratory rate 24 bpm, pulse rate 80 and she was afebrile to 99.4 �F. Labs showed mild leukocytosis at 13, proBNP 2600, COVID-19 antigen negative, and flu swab was positive for influenza A. Given Decadron,
albuterol and ipratropium in the ER, and admitted to the hospitalist service. Pulmonary now consulted for additional recommendations.
Conditions present prior admission:
Status post right carotic endarterectomy 12/03/2020
COPD-oxygen dependent on 4 L. On Trelegy.
Follows up with Dr. Garcia last appointment 02/07/2023.
Peripheral arterial disease
Atrial fibrillation-on anticoagulation
Sick sinus syndrome
Depression
Vocal cord cancer status post radiation- chronic hoarse voice.
History of asthma
Cataract extraction
History of Lyme disease
History of transitional bladder cancer
Essential tremor
Impression:
#Acute COPD exacerbation due to influenza A
#Acute on chronic hypoxic respiratory failure due to above
#Leukocytosis
#Hyperglycemia (HbA1c: 5.5 on 06/26/2024)
Plan:
- Patient is hospitalized with acute hypoxic respiratory failure with worsening O2 requirements, found to be influenza A positive in the setting of COPD
- Continue with [id number]
- Not bronchospastic-transition to oral prednisone 30 mg and decrease by 10 mg every 48 hours to off
- Aspiration precautions
- She is on Trelegy at home; continue Symbicort + Spiriva Respimat while hospitalized
- While on Spiriva, changed nebulized ipratropium to nebulized albuterol to avoid anticholinergic toxicity
- prn nebulized bronchodilators for breakthrough symptoms
- If SOB persists/worsens, then stop all inhalers and use DuoNebs with budesonide until she stabilizes
- Continue oxygen supplementation, improving down to 4 L nasal cannula.
- Continue other home medications for her A-fib, including sotalol and Xarelto
- Continue home dose of Lasix
- Although proBNP is elevated at 2600, this has been around her baseline since April 2023 - -> no overt signs of volume overload on imaging, as she has chronic mosaic attenuation (although her last RV on file was 61% predicted via PFTs from February
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
- Last echo performed on 08/23/2025 showing little significant change compared to prior echo in June 2024, with preserved biventricular function, with normal-sized RA and PASP of 51 mmHg
- Maintain euglycemia with goal BG 140-180
- Incentive spirometer encouraged 10x per hour for at least 4 hrs a day
- DVT ppx: Xarelto
Code status: Full code
Patient already has an upcoming appointment with our Pulmonary office, scheduled for 09/10/[address] Garcia. She is recommended to keep this appointment.
Subjective Data
-
Date of Service:
Date of Service: August 31, 2025
Chief Complaint: Pulmonary Follow Up
Subjective:
Overall improving slowly
Remains on supplemental oxygen via nasal cannula
Review of Systems
Cardiopulmonary: Dyspnea and Cough
GI: Abdominal Pain (n) and Nausea (n)
Objective Data
Data Reviewed
Vital Signs / I&O / Oxygen:
Vital Signs
Temp Pulse Resp BP Pulse Ox
98.4 F 73 18 138/61 93
08/31/25 11:00 08/31/25 14:11 08/31/25 11:00 08/31/25 11:00 08/31/25 14:11
Intake and Output
08/30/25 08/31/25 09/01/25
06:59 06:59 06:59
Intake Total 920 / 920 720 / 720 240 / 240
Balance 920 / 920 720 / 720 240 / 240
SaO2 93
Nasal Cannula flow liters per 4
minute
Physical Exam
General: Respiratory Distress (n), Comfortable, Chills (n) and Sweats (n)
HEENT: Normocephalic and Anicteric
Cardiovascular: S1-S2 and Peripheral Edema (n)
Respiratory: Wheeze (n), Crackles (n), Rhonchi (Bilateral), Non-Labored Respirations and Stridor (n)
GI: Soft, Non Distended, Non Tender and Normal Bowel Sounds
Neurology: Awake, Alert and Tremors (n)
Skin: Warm, Dry, Cyanosis (n) and Jaundice (n)
Labs/Micro/Reports
Lab Data
08/30/25 05:43
08/30/25 05:43
Microbiology
08/28/25 10:33 Nasal Swab Influenza Types A & B (YENNI) - Final
Influenza A Positive, NAAT
[2025-08-31] MEDS: XARELTO 20 MG PO (17:50)
[2025-08-31] MEDS: TYLENOL 650 MG PO (21:04)
[2025-09-01 03:00] VITALS: BP 149/83
[2025-09-01 06:00] VITALS: BMI 21.8
[2025-09-01 07:00] VITALS: BP 152/78
[2025-09-01] MEDS: SYMBICORT 80/4.5 MCG INHALER 2 PUFF INH ×2 (08:19→19:46)
[2025-09-01] MEDS: SPIRIVA RESPIMAT 2.5 MCG 2 PUFF INH (08:19)
[2025-09-01] MEDS: VENTOLIN NEBULES 2.5 MG INH (08:19)
--- NOTE | 2025-09-01 08:46 | W.PN.HOSP.TC ---
Today's Communication/Plan
-
dispo planning, medically ready for SNF
Assessment / Plan
Assessment / Plan
Ms. Asia Downing is a 85 yo woman with hx former smoker (quit 1995), COPD/asthma, chronic hypoxic resp insufficiency (on 4L), paroxysmal afib on Xarelto, laryngeal cancer s/p XRT, SSS s/p PPM, essential tremor presents to the ER with worsening
shortness of breath, found to be Influenza A positive and with COPD exacerbation.
Acute on chronic hypoxic Respiratory insufficiency 10/07 to FLU A positive with Acute COPD Exacerbation
Hx Tobacco Use
Pulmonary hypertension history
- on Trelegy at home - continue Symbicort + Spiriva while hospitalized
- stop Ipratropium as patient on Spiriva, albuterol ordered - hold if further SVT
- Tamiflu (day 01/07)
- O2 support as needed
- s/p IV Decadron - transitioned to oral Prednisone today 30mg PO QD; decrease by 10mg q 2 days
- appreciate pulmonary
- she is on home 4L O2, desat on 4L when working with PT, continue to monitor O2 needs with ambulation here and at SNF
- PT recommending SNF, patient medically ready
Chronic HFpEF
cont lasix , SPironolactone , Jardiance
Afib�paroxysmal
-cont sotalol ,Xarelto
SVT rapid response evening of admission (08/28); quickly converted back to sinus
stop albuterol if recurrence of fast rates
pleuritic chest discomfort reported at rapid response - suspect MSK from coughing (tender on exam), improved with ice and tylenol. now resolved.
SSS s/p Pacemaker
RBBB
Essential HTN
- Continue sotalol
HLD
cont statin
CAD/Rca stent
cont statin
CVa
cont statin, xarelto
Right carotid CEA
PAD s/p left SFA stent 02/2012, 10/2016
Depression
cont citalopram
Chronic benign tremor
Chronic hoarse voice due to vocal cord CA with resection
Chronic ambulatory dysfunction uses rollator at baseline
Other PMH:
right wrist pseudoaneurysm,
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
Bladder Ca with excision of tumor 2006
depression
Osetopenia- pt on vit D and fosamax
dvt proph
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
Full code
Anticipated Discharge: Within 24 hours
Subjective/Interval History
-
Date of Service: September 01, 2025
feeling better each day
less wheezing
Objective Data
-
Vital Signs:
Vital Signs
Temp Pulse Resp BP Pulse Ox
98.4 F 76 16 152/78 96
09/01/25 07:00 09/01/25 08:21 09/01/25 08:21 09/01/25 07:00 09/01/25 07:00
I&O
08/31/25 09/01/25 09/02/25
06:59 06:59 06:59
Intake Total 720 / 720 960 / 960
Balance 720 / 720 960 / 960
Review of Systems
-
History Source: Patient
All other systems: Reviewed and negative
Physical Exam
-
General: No Apparent Distress
HEENT: PERRLA and Other (baseline tremors; on 4L O2)
Respiratory: Wheezes (mild end expiratory; improved air flow )
Cardiac: Regular Rhythm and S1/S2
GI: Soft and Nontender
Musculoskeletal: No Edema
Neuro: AO x 3
Psych: Calm
Data Reviewed
-
Diagnostic Radiology: Report Reviewed by me
Labs: Labs Reviewed by me
[2025-09-01] MEDS: MUCINEX 1200 MG PO ×2 (09:32→22:36)
[2025-09-01] MEDS: BETAPACE 120 MG PO ×2 (09:32→22:35)
[2025-09-01] MEDS: OSCAL CAL 500 500 MG PO (09:32)
[2025-09-01] MEDS: LIPITOR 80 MG PO (09:33)
[2025-09-01] MEDS: DELTASONE 30 MG PO (09:33)
[2025-09-01] MEDS: CELEXA 30 MG PO (09:34)
[2025-09-01] MEDS: TAMIFLU 30 MG PO ×2 (09:34→22:36)
[2025-09-01] MEDS: VITAMIN D3 (cholecalciferol) 20 MCG PO (09:34)
[2025-09-01] MEDS: LASIX 80 MG PO ×2 (09:34→22:36)
[2025-09-01] MEDS: FARXIGA 10 MG PO (09:34)
[2025-09-01] MEDS: CLARITIN 10 MG PO (09:34)
[2025-09-01] MEDS: TYLENOL 650 MG PO (09:35)
--- NOTE | 2025-09-01 10:31 | PTCARENOTE ---
PT is aaox3 pleasant able to make needs known. PT has been identified as a high fall risk and has door shut for droplet precautions for ifnluenza a. Pt has yellow fall risk sign at door, round trip sign on door, yellow band on bed and chair alarm.
The patient has been educated on our fall precautions policy. She verbalized an understanding that she is considered a high risk and has verbally contracted with me to call before getting in and out of bed. So far she has called us first. Hourly
rounds have been maintained and room organized to minimize risk and declutter. PT sitting in recliner with call cleaning in hand
[2025-09-01 11:00] VITALS: BP 120/62
--- NOTE | 2025-09-01 13:10 | W.PN.UPDATE ---
Addendum entered and electronically signed by Alicia Avila MD 09/01/25 13:25:
patient self converted to sinus rhythm; no need for metop
hold further albuterol
EKG without significant change from prior
Original Note:
Update Note
Progress Note Update
SVT 130's, stable BP 120/72. patient asymptomatic.
-obtain EKG and BMP, Mag
-Metop 5mg IV x 1
-stop standing albuterol
[2025-09-01 14:21] LABS: Blood Urea Nitrogen 35 mg/dl (7-17); Calcium 9.1 mg/dl (8.4-10.2); Carbon Dioxide 33 mmol/L (22-30); Chloride 102 mmol/L (98-107); Estimated Creatinine Clearance 45 ml/min; Glucose 77 mg/dl (70-99); Magnesium 2.6 mg/dl (1.6-2.3); Potassium 3.6 mmol/L (3.5-5.1); Sodium 141 mmol/L (135-145); eGFR > 60.00
[2025-09-01 15:00] VITALS: BP 116/51
--- NOTE | 2025-09-01 15:20 | W.PN.PUL3 ---
Today's Communication / Plan
-
Continue inhalers
Prednisone taper
Complete Tamiflu
Agree with discharge planning
Oxygen at baseline
Outpatient pulmonary follow-up
Sign off
Assessment
-
Assessment: 85-year-old female former tobacco smoker (93-rwjt-syql history � quit 1995) with a past medical history of COPD/asthma on home O2 (4 L/min ATC), paroxysmal A-fib on Xarelto/sotalol, history of laryngeal cancer s/p XRT (August 2017)
complicated by chronic voice hoarseness, history of SSS s/p PPM, PAD s/p SFA stent complicated by occlusion, essential tremor, history of COVID-19 (June 2022), history of bladder cancer, hypertension, depression and CAD who presents with
worsening SOB and increased oxygen requirements. Patient was recently at pulmonary office on 08/16/2025 and she complained of shortness of breath at that time. 6 MWT showed she needs for this per minute nasal cannula which she has been using. She
has been compliant with her Trelegy, albuterol and as needed Mucinex. At home she has increased her oxygen to 6 L/min nasal cannula due to shortness of breath, but she still continue to feel out of breath. In the ER she was saturating 88% on 6
L/min nasal cannula, BP 93/53, respiratory rate 24 bpm, pulse rate 80 and she was afebrile to 99.4 �F. Labs showed mild leukocytosis at 13, proBNP 2600, COVID-19 antigen negative, and flu swab was positive for influenza A. Given Decadron,
albuterol and ipratropium in the ER, and admitted to the hospitalist service. Pulmonary now consulted for additional recommendations.
Conditions present prior admission:
Status post right carotic endarterectomy 12/03/2020
COPD-oxygen dependent on 4 L. On Trelegy.
Follows up with Dr. Garcia last appointment 02/07/2023.
Peripheral arterial disease
Atrial fibrillation-on anticoagulation
Sick sinus syndrome
Depression
Vocal cord cancer status post radiation- chronic hoarse voice.
History of asthma
Cataract extraction
History of Lyme disease
History of transitional bladder cancer
Essential tremor
Impression:
#Acute COPD exacerbation due to influenza A
#Acute on chronic hypoxic respiratory failure due to above
#Leukocytosis
#Hyperglycemia (HbA1c: 5.5 on 06/26/2024)
Plan:
- Patient is hospitalized with acute hypoxic respiratory failure with worsening O2 requirements, found to be influenza A positive in the setting of COPD
- Continue with [id number]
- Not bronchospastic-transition to oral prednisone 30 mg and decrease by 10 mg every 48 hours to off
- Aspiration precautions
- She is on Trelegy at home; continue Symbicort + Spiriva Respimat while hospitalized
- Agree with discontinuation of albuterol nebulizers.
- prn nebulized bronchodilators for breakthrough symptoms
- Oxygen supplementation down to baseline 4 L.
- Continue other home medications for her A-fib, including sotalol and Xarelto
- Continue home dose of Lasix
- Although proBNP is elevated at 2600, this has been around her baseline since April 2023 - -> no overt signs of volume overload on imaging, as she has chronic mosaic attenuation (although her last RV on file was 61% predicted via PFTs from February
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
- Last echo performed on 08/23/2025 showing little significant change compared to prior echo in June 2024, with preserved biventricular function, with normal-sized RA and PASP of 51 mmHg
- Incentive spirometer encouraged 10x per hour for at least 4 hrs a day
- DVT ppx: Xarelto
Code status: Full code
Patient already has an upcoming appointment with our Pulmonary office, scheduled for 09/10/[address] Garcia. She is recommended to keep this appointment.
No additional recommendations, agree with discharge planning. Sign off
Subjective Data
-
Date of Service:
Date of Service: September 01, 2025
Chief Complaint: Pulmonary Follow Up (Acute exacerbation COPD-influenza A)
Subjective:
Patient feels better
Clinically improved
Review of Systems
Cardiopulmonary: Dyspnea (Improved) and Cough ( improved)
Objective Data
Data Reviewed
Vital Signs / I&O / Oxygen:
Vital Signs
Temp Pulse Resp BP Pulse Ox
98.4 F 80 17 120/62 92
09/01/25 11:00 09/01/25 11:00 09/01/25 11:00 09/01/25 11:00 09/01/25 11:00
Intake and Output
08/31/25 09/01/25 09/02/25
06:59 06:59 06:59
Intake Total 720 / 720 960 / 960
Balance 720 / 720 960 / 960
SaO2 92
Nasal Cannula flow liters per 4
minute
Physical Exam
General: Respiratory Distress (n), Comfortable, Chills (n) and Sweats (n)
HEENT: Normocephalic and Anicteric
Cardiovascular: S1-S2 and Peripheral Edema (n)
Respiratory: Wheeze (n), Crackles (n), Rhonchi (Bilateral), Non-Labored Respirations and Stridor (n)
GI: Soft, Non Distended, Non Tender and Normal Bowel Sounds
Neurology: Awake, Alert and Tremors (n)
Skin: Warm, Dry, Cyanosis (n) and Jaundice (n)
Labs/Micro/Reports
Lab Data
08/30/25 05:43
09/01/25 13:25
--- NOTE | 2025-09-01 16:59 | PTCARENOTE ---
The patient had an episode of HR increasing over a course of 30 minutes. She went from 100% a paced to sinus tach at 140, SBP maintaines 120-130, 94% on 4 liters. pt denied any CP, SOB or palpitations. pt was resting in bed without any distress.
then pt went to SVT 170 , EKG machine obtained, leads placed then immediatly converted back to 100% a paced at rate of mid 70s before we got the EKG. MD was made aware and EKG appeared exactly same in relation to ST changes as prior in lateral
leads > pt has been resting without any issus
[2025-09-01] MEDS: XARELTO 20 MG PO (17:04)
[2025-09-01] MEDS: SENOKOT-S 1 TABLET PO (18:08)
[2025-09-01 19:00] VITALS: BP 147/63
[2025-09-01 23:00] VITALS: BP 161/73
[2025-09-02] VITALS (9 sets, daily range): BP systolic 96–171; BP diastolic 46–87; PULSE 80; O2SAT 94; BMI 21.9
[2025-09-02] MEDS: SPIRIVA RESPIMAT 2.5 MCG 2 PUFF INH (08:11)
[2025-09-02] MEDS: SYMBICORT 80/4.5 MCG INHALER 2 PUFF INH ×2 (08:11→20:13)
[2025-09-02] MEDS: MUCINEX 1200 MG PO ×2 (08:33→23:00)
[2025-09-02] MEDS: VITAMIN D3 (cholecalciferol) 20 MCG PO (08:33)
[2025-09-02] MEDS: BETAPACE 120 MG PO ×2 (08:33→22:59)
[2025-09-02] MEDS: LIPITOR 80 MG PO (08:33)
[2025-09-02] MEDS: CELEXA 30 MG PO (08:34)
[2025-09-02] MEDS: FARXIGA 10 MG PO (08:34)
[2025-09-02] MEDS: LASIX 80 MG PO ×2 (08:34→22:59)
[2025-09-02] MEDS: TAMIFLU 30 MG PO (08:34)
[2025-09-02] MEDS: CLARITIN 10 MG PO (08:34)
[2025-09-02] MEDS: DELTASONE 30 MG PO (08:34)
[2025-09-02] MEDS: OSCAL CAL 500 500 MG PO (08:34)
[2025-09-02] MEDS: KCL 20 MEQ PO (08:44)
--- NOTE | 2025-09-02 12:56 | W.PN.HOSP.TC ---
Today's Communication/Plan
-
po prednisone
complete tamiflu
await placement
Assessment / Plan
Assessment / Plan
General: No Apparent Distress
HEENT: Other (baseline tremors; on 4L O2)
Respiratory: Wheezes (mild end expiratory; improved air flow )
Cardiac: Regular Rhythm and S1/S2
GI: Soft and Nontender
Musculoskeletal: No Edema
Neuro: AO x 3
Psych: Calm
Ms. Asia Downing is a 85 yo woman with hx former smoker (quit 1995), COPD/asthma, chronic hypoxic resp insufficiency (on 4L), paroxysmal afib on Xarelto, laryngeal cancer s/p XRT, SSS s/p PPM, essential tremor presents to the ER with worsening
shortness of breath, found to be Influenza A positive and with COPD exacerbation.
Acute on chronic hypoxic Respiratory insufficiency 2/2 to FLU A positive with Acute COPD Exacerbation
Hx Tobacco Use
Pulmonary hypertension history
- on Trelegy at home - continue Symbicort + Spiriva while hospitalized
- stop Ipratropium as patient on Spiriva, albuterol - held SVT
- Tamiflu completed course
- O2 support as needed
- s/p IV Decadron - transitioned to oral Prednisone today 30mg PO QD; decrease by 10mg q 2 days
- appreciate pulmonary
- she is on home 4L O2, desat on 4L when working with PT, continue to monitor O2 needs with ambulation here and at SNF
- PT recommending SNF, patient medically ready
Chronic HFpEF
cont lasix , SPironolactone , Jardiance
Afib�paroxysmal
-cont sotalol ,Xarelto
SVT rapid response evening of admission (08/28); quickly converted back to sinus
stop albuterol if recurrence of fast rates
pleuritic chest discomfort reported at rapid response - suspect MSK from coughing (tender on exam), improved with ice and tylenol. now resolved.
SSS s/p Pacemaker
RBBB
Essential HTN
- Continue sotalol
HLD
cont statin
CAD/Rca stent
cont statin
CVa
cont statin, xarelto
Right carotid CEA
PAD s/p left SFA stent 02/2012, 10/2016
Depression
cont citalopram
Chronic benign tremor
Chronic hoarse voice due to vocal cord CA with resection
Chronic ambulatory dysfunction uses rollator at baseline
Other PMH:
right wrist pseudoaneurysm,
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
Bladder Ca with excision of tumor 2006
depression
Osetopenia- pt on vit D and fosamax
dvt proph
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
Full code
PT recs SNF. CM aware. Await placement.
Anticipated Discharge: Today
Subjective/Interval History
-
Date of Service: September 02, 2025
remains with cough
Objective Data
-
Vital Signs:
Vital Signs
Temp Pulse Resp BP Pulse Ox
98 F 78 16 125/64 100
09/02/25 11:00 09/02/25 12:54 09/02/25 11:00 09/02/25 12:54 09/02/25 11:00
I&O
09/01/25 09/02/25 09/03/25
06:59 06:59 06:59
Intake Total 960 / 960 960 / 960
Output Total 500 / 500
Balance 960 / 960 460 / 460
--- NOTE | 2025-09-02 16:18 | CM ---
PT evaluated patient today. Recommendation for discharge to home with home care services. Patient is agreeable to this plan, as she prefers to be home.
[2025-09-02] MEDS: TYLENOL 650 MG PO (16:32)
[2025-09-02] MEDS: XARELTO 20 MG PO (17:09)
[2025-09-03 03:38] VITALS: BP 127/78
[2025-09-03 06:00] VITALS: BMI 21.6
[2025-09-03] MEDS: SYMBICORT 80/4.5 MCG INHALER 2 PUFF INH (07:23)
[2025-09-03] MEDS: SPIRIVA RESPIMAT 2.5 MCG 2 PUFF INH (07:23)
[2025-09-03 07:41] VITALS: BP 131/70
[2025-09-03] MEDS: CELEXA 30 MG PO (08:02)
[2025-09-03] MEDS: BETAPACE 120 MG PO (08:02)
[2025-09-03] MEDS: DELTASONE 30 MG PO (08:03)
[2025-09-03] MEDS: CLARITIN 10 MG PO (08:03)
[2025-09-03] MEDS: OSCAL CAL 500 500 MG PO (08:03)
[2025-09-03] MEDS: MUCINEX 1200 MG PO (08:03)
[2025-09-03] MEDS: LIPITOR 80 MG PO (08:03)
[2025-09-03] MEDS: FARXIGA 10 MG PO (08:03)
[2025-09-03] MEDS: LASIX 80 MG PO (08:03)
[2025-09-03] MEDS: VITAMIN D3 (cholecalciferol) 20 MCG PO (08:04)
[2025-09-03] MEDS: LOPRESSOR 5 MG IV (10:45)
[2025-09-03 11:18] VITALS: BP 104/56
--- NOTE | 2025-09-03 13:29 | W.PN.HOSP.TC ---
Today's Communication/Plan
-
Monitor heart rate.
Continue with prednisone taper
Assessment / Plan
Assessment / Plan
General: No Apparent Distress
HEENT: Other (baseline tremors; on 4L O2)
Respiratory: Wheezes (mild end expiratory; improved air flow )
Cardiac: Regular Rhythm and S1/S2
GI: Soft and Nontender
Musculoskeletal: No Edema
Neuro: AO x 3
Psych: Calm
Ms. Asia Downing is a 85 yo woman with hx former smoker (quit 1995), COPD/asthma, chronic hypoxic resp insufficiency (on 4L), paroxysmal afib on Xarelto, laryngeal cancer s/p XRT, SSS s/p PPM, essential tremor presents to the ER with worsening
shortness of breath, found to be Influenza A positive and with COPD exacerbation.
Acute on chronic hypoxic Respiratory insufficiency 2/ to FLU A positive with Acute COPD Exacerbation
Hx Tobacco Use
Pulmonary hypertension history
- on Trelegy at home - continue Symbicort + Spiriva while hospitalized
- stop Ipratropium as patient on Spiriva, albuterol - held SVT
- Tamiflu completed course
- O2 support as needed
- s/p IV Decadron - transitioned to oral Prednisone today 30mg PO QD; decrease by 10mg q 2 days
- appreciate pulmonary
- Remains stable on 4 L of oxygen.
Chronic HFpEF
cont lasix , SPironolactone , Jardiance
Afib�paroxysmal
-cont sotalol ,Xarelto
- Heart rate improved. IV Lopressor dose earlier. Monitor heart rate.
SVT rapid response evening of admission (08/28); quickly converted back to sinus
stop albuterol if recurrence of fast rates
pleuritic chest discomfort reported at rapid response - suspect MSK from coughing (tender on exam), improved with ice and tylenol. now resolved.
SSS s/p Pacemaker
RBBB
Essential HTN
- Continue sotalol
HLD
cont statin
CAD/Rca stent
cont statin
CVa
cont statin, xarelto
Right carotid CEA
PAD s/p left SFA stent 02/2012, 10/2016
Depression
cont citalopram
Chronic benign tremor
Chronic hoarse voice due to vocal cord CA with resection
Chronic ambulatory dysfunction uses rollator at baseline
Other PMH:
right wrist pseudoaneurysm,
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
Bladder Ca with excision of tumor 2006
depression
Osetopenia- pt on vit D and fosamax
dvt proph
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
Full code
PT recs home health
Anticipated Discharge: Within 24 hours
Subjective/Interval History
-
Date of Service: September 03, 2025
Went into atrial fibrillation with rapid ventricular response
Received IV Lopressor
Objective Data
-
Vital Signs:
Vital Signs
Temp Pulse Resp BP Pulse Ox
97.9 F 145 18 104/56 97
09/03/25 11:18 09/03/25 11:18 09/03/25 11:18 09/03/25 11:18 09/03/25 11:18
I&O
09/02/25 09/03/25 09/04/25
06:59 06:59 06:59
Intake Total 960 / 960
Output Total 500 / 500
Balance 460 / 460
--- NOTE | 2025-09-03 15:20 | W.DCSUMMARY ---
Discharge Summary
Discharge Data
Date of Admission: 08/28/25
Date of Discharge: 09/03/25
-
Pending Results: No
Hospital Course
85 yo woman with hx former smoker (quit 1995), COPD/asthma, chronic hypoxic resp insufficiency (on 4L), paroxysmal afib on Xarelto, laryngeal cancer s/p XRT, SSS s/p PPM, essential tremor presents to the ER with worsening shortness of breath, found
to be Influenza A positive and with COPD exacerbation. Patient was also eval by pulmonary. Patient completed course of Tamiflu during hospitalization. Albuterol was stopped due to episode of SVT. IV steroids were started. Patient with
significant improvement in symptomatology. Patient was transition to p.o. prednisone taper. Patient had 1 episode of atrial fibrillation with rapid ventricular response which improved. Patient was at baseline oxygenation. Patient was eval by
physical and Occupational Therapy and be discharged home with [facility]. Recommend outpatient pulmonary follow-up.
Discharge Plan
-
Patient Disposition: [facility]NF
Discharge Diagnosis/Procedures: Influenza and COPD Exacerbation
Diet: Regular
Activity: As tolerated
Driving Restrictions: As prior to admission
Bathing Restrictions: None
Referrals:
Vin Carmen Jr., DO [Family Provider, Internal Medicine] - in less than 1 week
Keegan Garcia MD [Active, Pulmonary Medicine] - 09/10/25 10:15 am
Additional Discharge Medication Instructions: You completed your course of Tamiflu in the hospital
Complete steroid taper as prescribed.
Prescriptions:
New
prednisone 10 mg Tablet
See Rx Instructions .ROUTE .COMPLEX Qty: 12 0RF
Rx Instructions:
Take By Mouth:
30 mg daily x2 days,
20 mg daily x2 days, 10 mg daily x2 days.
Continued
cholecalciferol (vitamin D3) [Vitamin D3] 400 UNITS tablet
800 units PO DAILY
sotalol 120 MG tablet
120 mg PO BID
atorvastatin 80 mg Tablet
80 mg PO DAILY
alendronate [Fosamax] 70 mg Tablet
70 mg PO COLON
citalopram 20 mg Tablet
30 mg PO DAILY
calcium carbonate 500 mg calcium (1,250 mg) Tablet
500 mg PO DAILY Qty: 0
ascorbic acid (vitamin C) [Vitamin C] 500 mg Tablet
500 mg PO DAILY Qty: 0
Trelegy Ellipta 100-62.5-25 mcg Blister With Device
1 inh INHALATION R DAILY
potassium chloride 20 mEq Tablet,Er Particles/Crystals
20 meq PO DAILY
Jardiance 10 mg Tablet
10 mg PO DAILY
spironolactone 25 mg Tablet
12.5 mg PO DAILY
furosemide 80 mg tablet
80 mg PO BID
Xarelto 20 MG tablet
20 mg PO QPM
guaifenesin [Mucinex] 600 mg Tablet Extended Release 12hr
1,200 mg PO BID
loratadine 10 mg Tablet
10 mg PO DAILY
Discharge Orders:
Discharge Patient (As Directed); Ordered 09/03/25
Ordered By: Epifanio Etienne
Discharge Date and Time
Discharge Date/Time: 09/03/25 16:49
Print Language: EQUATORIAL GUINEAN
[2025-09-03 15:29] VITALS: BP 126/65
--- NOTE | 2025-09-03 15:58 | CM ---
Plan is to home today with spouse, back to [facility], visiting nurse options reviewed and patient has selected [facility], referral sent to [facility]. [facility] reviewed with patient, Spouse to return to apartment to bring in patient's home oxygen
for discharge.
Plan; Home today with [facility].
== END 2025-09-03 16:49 | disposition home health service (06) | DRG 193 ==
LOC: 3 WEST ACU 13:14
PROVIDERS: Clinical Nurse Specialist Family Health; Student in an Organized Health Care Education/Training Program; ADMITTING PHYSICIAN Internal Medicine; ATTENDING PHYSICIAN Hospitalist; CONSULT PHYSICIAN Internal Medicine Critical Care Medicine; EMERGENCY PHYSICIAN Student in an Organized Health Care Education/Training Program; FAMILY PHYSICIAN Family Medicine
DX: J10.1 Influenza due to other identified influenza virus with other respiratory manifestations (principal); J96.21 Acute and chronic respiratory failure with hypoxia; J44.1 Chronic obstructive pulmonary disease with (acute) exacerbation; I50.30 Unspecified diastolic (congestive) heart failure; I47.10 Supraventricular tachycardia, unspecified; F32.A Depression, unspecified; I73.9 Peripheral vascular disease, unspecified; I48.0 Paroxysmal atrial fibrillation; F17.200 Nicotine dependence, unspecified, uncomplicated; I49.3 Ventricular premature depolarization; I27.20 Pulmonary hypertension, unspecified; I45.10 Unspecified right bundle-branch block; I11.0 Hypertensive heart disease with heart failure; I25.10 Atherosclerotic heart disease of native coronary artery without angina pectoris; R49.0 Dysphonia; R73.9 Hyperglycemia, unspecified; G25.0 Essential tremor; R26.2 Difficulty in walking, not elsewhere classified; L89.621 Pressure ulcer of left heel, stage 1; L89.611 Pressure ulcer of right heel, stage 1; Z95.0 Presence of cardiac pacemaker; Z95.5 Presence of coronary angioplasty implant and graft; Z90.710 Acquired absence of both cervix and uterus; Z82.49 Family history of ischemic heart disease and other diseases of the circulatory system; Z79.01 Long term (current) use of anticoagulants; Z79.84 Long term (current) use of oral hypoglycemic drugs; Z79.51 Long term (current) use of inhaled steroids; Z99.81 Dependence on supplemental oxygen; Z85.51 Personal history of malignant neoplasm of bladder; Z86.73 Personal history of transient ischemic attack (TIA), and cerebral infarction without residual deficits; Z88.0 Allergy status to penicillin; Z92.3 Personal history of irradiation; Z85.21 Personal history of malignant neoplasm of larynx; Z86.19 Personal history of other infectious and parasitic diseases; Z86.16 Personal history of COVID-19; Z79.83 Long term (current) use of bisphosphonates; Z11.52 Encounter for screening for COVID-19
CPT/HCPCS: 71045; 80048; 80053; 82962; 83735; 83880; 84484; 85025; 85027; 85610; 85730; 87502; 87811; 93005; 94640; 96374; 97116; 97162; 97530; 99291